=== PATIENT | female | born 1950 | race Caucasian/White ===

== ENCOUNTER → 2017-09-29 08:33 | Outpatient (CLI) | payer MEDICARE, OTHER, SELFPAY ==
[2017-09-29 09:08] LABS: Hematocrit 40.3 % (37-47); Mean Corp Hgb Conc 34.7 g/gl (32-36); Mean Corpuscular Hgb 30.9 pg (27.0-32.0); Mean Platelet Vol. 9.4 fl (6.2-12.0); Platelet Count 271 K/mm3 (150-450); RBC Distribution Width CV 13.6 % (11.6-14.6); RBC Distribution Width SD 44.2 fl (35.1-43.9); Red Blood Count 4.53 M/mm3 (4.2-5.4); Scan Indicated on CBC? Y/N NO
[2017-09-29 09:45] LABS: ALB/GLOB Ratio 1.1 RATIO (0.9-2.4); AST(SGOT) 34 U/L (15-37); Alanine Aminotransfer ALT/SGPT 43 U/L (13-56); Albumin, Serum 4.1 g/dL (3.2-5.0); Alkaline Phosphatase 53 U/L (45-117); Anion Gap 9 (5-15); BUN 21 mg/dL (7-18); BUN/Creat Ratio 20.4 RATIO (10-20); Calcium,Total 9.3 mg/dL (8.5-10.1); Chloride 106 mmol/L (98-107); Cholesterol 195 mg/dL (200); Creatinine, Serum 1.03 mg/dL (0.55-1.02); EST Glomerular Filtration Rate 57 mL/min (>60); Est Glom Filt Rate - Afr Amer 69 mL/min (>60); Globulin 3.8 g/dL (2.2-4.2); Glucose 105 mg/dL (74-106); High Density Lipoprotein 51 mg/dL; Magnesium 2.1 mg/dL (1.6-2.6); Potassium 3.8 mmol/L (3.5-5.1); Protein, Total 7.9 g/dL (6.4-8.2); Sodium Level 139 mmol/L (136-145); Triglycerides 154 mg/dL; Very Low Density Lipoprotein 31 mg/dL (5-40)
[2017-09-29 10:47] LABS: Vitamin D,25 Hydroxy 73.4 ng/mL (29.95-100.01)
== END ==
PROVIDERS: Family Provider Internal Medicine; PCP Internal Medicine; Visit Provider Internal Medicine
DX: I10 Essential (primary) hypertension (principal); E55.9 Vitamin D deficiency, unspecified; E78.2 Mixed hyperlipidemia; E87.6 Hypokalemia; E83.42 Hypomagnesemia; Z79.899 Other long term (current) drug therapy
CPT/HCPCS: 36415; 80053; 80061; 82306; 83735; 85027

== ENCOUNTER → 2017-11-24 17:40 | Outpatient (CLI) | payer MEDICARE, OTHER, SELFPAY ==
--- NOTE | 2017-11-24 17:40 | CT_ITS ---
STUDY: CT CHEST WITH CONTRAST REASON FOR EXAM: Female, 67 years old. Cough, history of breast cancer RADIATION DOSAGE (If Supplied By Facility): CTDIvol = ( 12.37 ) mGy, DLP = ( 536.13 ) mGycm TECHNIQUE: Transaxial imaging was performed following intravenous administration of 100ml ml of Isovue 300 contrast material. Multiplanar coronal and sagittal images were reformatted. Individualized dose optimization techniques were used for this CT. COMPARISON: None. FINDINGS: No noncalcified pulmonary nodules detected. Smoothly marginated micronodules of the posterior pleural surface involving the mid to lower hemithorax without pleural effusion. Average diameter of the micronodules measure up to 5 mm (average diameter). There is a calcified granuloma in the right lower lobe. Normal heart and pericardium. There are calcified lymph nodes in the mediastinum. Normal hilar regions. Normal enhanced pulmonary arteries. Normal aorta arch and descending thoracic aorta. Bovine arch anatomy noted. Normal osseous structures. There are multiple renal cysts of each kidney, incompletely visualized. The gallbladder. 3 surgically absent. The adrenal glands are not focally enlarged. There is a small hiatal hernia. CT/Chest WITH Contrast IMPRESSION: 1. No suspicious pulmonary nodule/mass, adenopathy or pleural effusion. No airspace consolidation. 2. Pleural based micronodules without associated effusions are most typical of postinflammatory sequela, doubtful clinical significance. 3. Bilateral renal cysts, incompletely visualized but previously described on CT abdomen/pelvis report of 01/17/2014. Images not available. Electronically Signed: Daniel Ennis MD at 9:05 EDT , Service support ,
[2017-11-24 17:55] LABS: CREATININE FINGERSTICK 0.8 mg/dL (0.55-1.02); EGFR FINGERSTICK > 60.0000 mL/min (>60)
== END ==
PROVIDERS: Family Provider Internal Medicine; PCP Internal Medicine; Visit Provider Nurse Practitioner Adult Health
DX: J90 Pleural effusion, not elsewhere classified (principal); Z13.89 Encounter for screening for other disorder
CPT/HCPCS: 71260; Q9967

== ENCOUNTER → 2018-03-28 10:22 | Outpatient (CLI) | payer MEDICARE, OTHER, SELFPAY ==
--- NOTE | 2018-03-28 10:27 | BI_ITS ---
MAMMOGRAPHY - BILATERAL SCREENING REASON FOR EXAM: Female, 67 years old. Routine annual screening examination. PERTINENT HISTORY: P/H AGE 53, MOTHER AGE 62, MAT AUNT AGE 70S LT MASTECTOMY WITH RCON TRAMFLAP 2004 CHEMO AND ARIMADEX FOR 5 YRS RT STERO BX 2003 RT MOLE REMOVED 2009 BILAT MOLES/KERATOSIS MARKED TECHNIQUE: Digital bilateral breast reinaldo (3D mammographic acquisition) in the CC and MLO projections. 2-D mediolateral oblique (MLO) and craniocaudad (CC) views of both breasts were obtained. CAD: Full Field Digital Mammography with Computer Added Detection was performed. COMPARISON: Mar 27 2017 10:40am . Mar 28 2016 9:31am FINDINGS: Breast Composition: The breasts are heterogeneously dense, which may obscure small masses. There are no dominant masses or suspicious calcifications. No other significant abnormalities are identified. BI/SCREENING MAMM (CAD), BILAT IMPRESSION: Stable bilateral screening mammogram. Yearly follow-up mammogram recommended. (A) ASSESSMENT CATEGORY: BIRADS Category 2: Benign. A letter regarding these results will be sent to the patient by the facility within 30 days. Approximately 10% of breast cancers are not detected by mammography. A normal mammogram should not delay biopsy of a clinically suspicious abnormality. [id number] Electronically Signed: Bronson Encarnacion MD at 15:31 EDT Tel , Service support ,
--- NOTE | 2018-03-28 10:33 | BD_ITS ---
STUDY: DUAL ENERGY X-RAY ABSORPTIOMETRY / DXA REASON FOR EXAM: Female, 67 years old. Early menopause, postmenopausal screening TECHNIQUE: Bone Mineral Density (BMD) measurements of lumbar spine and bilateral hips were obtained. COMPARISON: 2014 FINDINGS: Lumbar Spine (L1-L4): g/cm2 (0.999) / T-score (-1.4) / Z-score (0.2) Findings are suggestive of osteopenia with a moderate fracture risk. Left Femur Total: g/cm2 (0.841) / T-score (-1.3) / Z-score (-0.1) Left Femoral Neck: g/cm2 (0.792) / T-score (-1.8) / Z-score (-0.3) Right Femur Total: g/cm2 (0.871) / T-score (-1.1) / Z-score (0.1) Right Femoral Neck: g/cm2 (0.790) / T-score (-1.8) / Z-score (-0.3) The T-Scores on the most recent prior examination were: Lumbar Spine (L1-L4): There has been no change of bone density since the previous examination. BD/Dexa Bone Density Study IMPRESSION: The patient is considered osteopenic as outlined below according to World [place] Organization (WHO) criteria with a moderate fracture risk. There has been no change of bone density since the previous examination. Reference Information: The T-score is the number of standard deviations above or below the standard which is normal for young adults at their peak bone mineral density. The World Health Organization (WHO) interprets the T-scores as follows: Above -1 Normal bone density Between -1 and -2.5 Osteopenia Equal to / or below -2.5 Osteoporosis As a practical clinical guideline, osteopenia may be graded as follows: Mild -1 through -1.5 Moderate -1.6 through -2.0 Severe -2.1 through -2.4 The Z-score is the number of standard deviations above or below age-matched controls. A Z-score of less than -1.5 would be considered abnormal. References: 1. NIH Osteoporosis and Related Bone Diseases http://www.osteo.org 2. International Society for Clinical Densitometry http://www.iscd.org 3. National Osteoporosis Foundation http://www.nof.org Electronically Signed: Jose Benitez MD at 16:27 EDT , Service support ,
== END ==
PROVIDERS: Family Provider Internal Medicine; PCP Internal Medicine; Referring Provider Obstetrics & Gynecology; Visit Provider Obstetrics & Gynecology
DX: Z12.31 Encounter for screening mammogram for malignant neoplasm of breast (principal); Z78.0 Asymptomatic menopausal state
CPT/HCPCS: 77063; 77067; 77080

== ENCOUNTER → 2018-04-06 08:38 | Outpatient (CLI) | payer MEDICARE, OTHER, SELFPAY ==
[2018-04-06 09:57] LABS: Hemoglobin A1c 5.9 % (4.2-6.3)
[2018-04-06 10:16] LABS: Anion Gap 7 (5-15); BUN 20 mg/dL (7-18); BUN/Creat Ratio 19.4 RATIO (10-20); Calcium,Total 9.2 mg/dL (8.5-10.1); Chloride 106 mmol/L (98-107); Creatinine, Serum 1.03 mg/dL (0.55-1.02); EST Glomerular Filtration Rate 57 mL/min (>60); Est Glom Filt Rate - Afr Amer 69 mL/min (>60); Glucose 103 mg/dL (74-106); Potassium 3.6 mmol/L (3.5-5.1); Sodium Level 140 mmol/L (136-145)
== END ==
PROVIDERS: Family Provider Internal Medicine; PCP Internal Medicine; Referring Provider Internal Medicine; Visit Provider Internal Medicine
DX: Z79.899 Other long term (current) drug therapy (principal)
CPT/HCPCS: 36415; 80048; 83036

== ENCOUNTER → 2018-05-31 08:23 | Outpatient (CLI) | payer MEDICARE, OTHER, SELFPAY ==
[2018-05-31 08:42] VITALS: BP 151/79; PULSE 76; RESP 18; TEMP 37; O2SAT 93; BMI 33.7
[2018-05-31] MEDS: Zoledronic Acid 5 MG 100 ML 300 MG IV (08:49)
== END ==
PROVIDERS: Family Provider Internal Medicine; PCP Internal Medicine; Referring Provider Internal Medicine; Visit Provider Internal Medicine
DX: M81.0 Age-related osteoporosis without current pathological fracture (principal)
CPT/HCPCS: 96365; J7050; A4216; J3489

== ENCOUNTER → 2018-09-29 08:57 | Outpatient (CLI) | payer MEDICARE, SELFPAY ==
[2018-05-31 08:42] VITALS: BMI 33.7
[2018-09-29 10:16] LABS: Hematocrit 43.4 % (37-47); Hemoglobin 14.3 g/dl (12.0-15.0); Mean Corp Hgb Conc 32.9 g/gl (32-36); Mean Corpuscular Hgb 30.3 pg (27.0-32.0); Mean Corpuscular Volume 91.9 fL (81-99); Mean Platelet Vol. 9.6 fl (6.2-12.0); Platelet Count 256 K/mm3 (150-450); RBC Distribution Width CV 13.8 % (11.6-14.6); RBC Distribution Width SD 46.4 fl (35.1-43.9); Red Blood Count 4.72 M/mm3 (4.2-5.4); Scan Indicated on CBC? Y/N NO; White Blood Count 5.6 K/mm3 (4.4-11.0)
[2018-09-29 10:41] LABS: ALB/GLOB Ratio 1.1 RATIO (0.9-2.4); AST(SGOT) 20 U/L (15-37); Alanine Aminotransfer ALT/SGPT 29 U/L (13-56); Alkaline Phosphatase 46 U/L (45-117); Anion Gap 7 (5-15); BUN 21 mg/dL (7-18); Calcium,Total 9.2 mg/dL (8.5-10.1); Chloride 108 mmol/L (98-107); Cholesterol 214 mg/dL (200); Creatinine, Serum 1.05 mg/dL (0.55-1.02); EST Glomerular Filtration Rate 56 mL/min (>60); Est Glom Filt Rate - Afr Amer 67 mL/min (>60); Globulin 3.7 g/dL (2.2-4.2); Glucose 108 mg/dL (74-106); High Density Lipoprotein 55 mg/dL; Magnesium 1.8 mg/dL (1.6-2.6); Potassium 3.7 mmol/L (3.5-5.1); Protein, Total 7.7 g/dL (6.4-8.2); Sodium Level 141 mmol/L (136-145); Triglycerides 154 mg/dL; Very Low Density Lipoprotein 31 mg/dL (5-40)
[2018-09-29 10:47] LABS: Hemoglobin A1c 6.2 % (4.2-6.3)
[2018-09-30 11:14] LABS: Vitamin D,25 Hydroxy 61.4 ng/mL (29.95-100.01)
== END ==
PROVIDERS: Family Provider Internal Medicine; PCP Internal Medicine; Referring Provider Internal Medicine; Visit Provider Internal Medicine
DX: E78.2 Mixed hyperlipidemia (principal); I10 Essential (primary) hypertension; E87.6 Hypokalemia; E83.42 Hypomagnesemia; R73.09 Other abnormal glucose; E55.9 Vitamin D deficiency, unspecified; Z79.899 Other long term (current) drug therapy
CPT/HCPCS: 36415; 80053; 80061; 82306; 83036; 83735; 85027

== ENCOUNTER → 2019-03-28 | Outpatient (CLI) | payer MEDICARE, OTHER, SELFPAY ==
[2018-05-31 08:42] VITALS: BMI 33.7
[2019-03-28 09:49] LABS: Absolute Lymphocyte Count 1.88 X10^3/uL (0.83-4.51); Absolute Neutrophil Count 3.6 X10^3/uL (2.0-7.7); Basophil# 0.03 X10^3/uL; Basophil% 0.5 % (0-1); Eosinophil# 0.26 X10^3/uL; Eosinophils% 4.2 % (0-5); Hematocrit 44.6 % (37-47); Hemoglobin 14.6 g/dL (12.0-15.0); Lymphocyte # 1.88 X10^3/ul (4.0); Lymphocyte % 30.5 % (19-41); Mean Corp Hgb Conc 32.7 g/dL (32-36); Mean Corpuscular Hgb 29.7 pg (27.0-32.0); Mean Corpuscular Volume 90.7 fL (81-99); Mean Platelet Vol. 9.5 fl (6.2-12.0); Monocyte# 0.43 X10^3/uL; NRBC Flagged by Analyzer 0 % (0-5); Neutrophil # 3.55 X10^3/uL (2.7-7.7); Neutrophil % 57.6 % (47-70); Platelet Count 291 K/mm3 (150-450); RBC Distribution Width CV 13.1 % (11.6-14.6); RBC Distribution Width SD 42.9 fl (35.1-43.9); Red Blood Count 4.92 M/mm3 (4.2-5.4); White Blood Count 6.2 K/mm3 (4.4-11.0)
[2019-03-28 10:32] LABS: Vitamin D,25 Hydroxy 54.1 ng/mL (29.95-100.01)
[2019-03-28 10:36] LABS: AST(SGOT) 34 U/L (15-37); Alanine Aminotransfer ALT/SGPT 47 U/L (13-56); Alkaline Phosphatase 62 U/L (45-117); Anion Gap 8 (5-15); BUN 27 mg/dL (7-18); BUN/Creat Ratio 24.1 RATIO (10-20); Calcium,Total 9.7 mg/dL (8.5-10.1); Chloride 111 mmol/L (98-107); Cholesterol 214 mg/dL (200); Creatinine, Serum 1.12 mg/dL (0.55-1.02); EST Glomerular Filtration Rate 52 mL/min (>60); Est Glom Filt Rate - Afr Amer 63 mL/min (>60); Globulin 4.2 g/dL (2.2-4.2); Glucose 122 mg/dL (74-106); High Density Lipoprotein 52 mg/dL; Potassium 3.9 mmol/L (3.5-5.1); Protein, Total 8.2 g/dL (6.4-8.2); Sodium Level 141 mmol/L (136-145); Triglycerides 179 mg/dL; Very Low Density Lipoprotein 36 mg/dL (5-40)
== END | disposition home or self-care (01) ==
PROVIDERS: Family Provider Internal Medicine; PCP Internal Medicine; Referring Provider Internal Medicine; Visit Provider Internal Medicine
DX: E55.9 Vitamin D deficiency, unspecified (principal); E83.42 Hypomagnesemia; E78.2 Mixed hyperlipidemia; R73.09 Other abnormal glucose; I10 Essential (primary) hypertension; E87.6 Hypokalemia; Z79.899 Other long term (current) drug therapy
CPT/HCPCS: 36415; 80053; 80061; 82306; 83036; 83735; 85025

== ENCOUNTER → 2019-03-29 | Outpatient (CLI) | payer MEDICARE, OTHER, SELFPAY ==
[2018-05-31 08:42] VITALS: BMI 33.7
--- NOTE | 2019-03-29 08:23 | BI_ITS ---
MAMMOGRAPHY - BILATERAL SCREENING REASON FOR EXAM: Female, 68 years old. Routine annual screening examination. PERTINENT HISTORY: Personal history of breast cancer. History of prior left mastectomy with TRAM flap reconstruction. Mother with breast cancer. Twin sister with breast cancer. TECHNIQUE: Digital bilateral breast cosme (3D mammographic acquisition) in the CC and MLO projections. 2-D mediolateral oblique (MLO) and craniocaudad (CC) views of both breasts were obtained. CAD: Full Field Digital Mammography with Computer Added Detection was performed. COMPARISON: Comparison is made with prior examination dated March 28, 2018. FINDINGS: Breast Composition: The right breast is heterogeneously dense, which may obscure small masses. The left breast is fatty due to the [place] flap reconstruction. Surgical clips are seen along the left chest wall. Stable appearance of the fat-containing right axillary lymph nodes. There are no dominant masses or suspicious calcifications. No other significant abnormalities are identified. There has been no significant change since the prior study. BI/SCREEN MAMM (CAD) W/COSME BILAT IMPRESSION: Stable bilateral screening mammogram. Yearly follow-up mammogram recommended. (A) ASSESSMENT CATEGORY: BIRADS Category 2: Benign. A letter regarding these results will be sent to the patient by the facility within 30 days. Approximately 10% of breast cancers are not detected by mammography. A normal mammogram should not delay biopsy of a clinically suspicious abnormality. [id number] Electronically Signed: Kevin Guajardo, at 10:34 EDT , Service support ,
== END | disposition home or self-care (01) ==
LOC: OPBI 08:21
PROVIDERS: Family Provider Internal Medicine; PCP Internal Medicine; Referring Provider Nurse Practitioner Women's Health; Visit Provider Nurse Practitioner Women's Health
DX: Z12.31 Encounter for screening mammogram for malignant neoplasm of breast (principal)
CPT/HCPCS: 77063; 77067

== ENCOUNTER → 2019-05-31 09:55 | Outpatient (CLI) | payer MEDICARE, OTHER, SELFPAY ==
[2019-04-23 10:32] VITALS: BMI 33.7
[2019-05-31 10:08] VITALS: BP 146/77; PULSE 62; RESP 16; TEMP 36.1; O2SAT 96; BMI 36.6
[2019-05-31] MEDS: Zoledronic Acid 5 MG 100 ML 300 MG IV (10:10)
[2019-05-31 10:40] VITALS: BP 133/76; PULSE 54; RESP 16
== END ==
PROVIDERS: Family Provider Internal Medicine; PCP Internal Medicine; Referring Provider Internal Medicine; Visit Provider Internal Medicine
DX: M81.0 Age-related osteoporosis without current pathological fracture (principal)
CPT/HCPCS: 96365; A4216; J3489

== ENCOUNTER → 2020-02-06 08:50 | Outpatient (CLI) | payer MEDICARE, OTHER, SELFPAY ==
[2019-05-31 10:08] VITALS: BMI 36.6
--- NOTE | 2020-02-06 08:51 | BI_ITS ---
MAMMOGRAPHY - UNILATERAL DIAGNOSTIC: RIGHT BREAST REASON FOR EXAM: Female, 69 years old. Right breast pain. PERTINENT HISTORY: Personal history of breast cancer. Prior left mastectomy and TRAM flap reconstruction. TECHNIQUE: Digital unilateral breast reinaldo (3D mammographic acquisition) in the CC and MLO projections. 2-D mediolateral oblique (MLO) and craniocaudad (CC) views of both breasts were obtained. CAD: Full Field Digital Mammography with Computer Added Detection was performed. COMPARISON: Comparison is made with prior study dated 03/29/2019 and 03/28/2018. FINDINGS: Breast Composition: The breasts are heterogeneously dense, which may obscure small masses. Focal area of architectural distortion is seen in the deep slightly upper medial aspect of the right breast. Correlation with ultrasound is recommended. No other significant abnormalities are identified. BI/DIAG MAMM W/CAD, UNILAT IMPRESSION: Focal area of architectural distortion and spiculated density in the deep slightly upper medial portion of the right breast. Correlation with ultrasound is recommended. ASSESSMENT CATEGORY: BIRADS Category 0: Incomplete. Need additional imaging evaluation. A letter regarding these results will be sent to the patient by the facility within 30 days. Approximately 10% of breast cancers are not detected by mammography. A normal mammogram should not delay biopsy of a clinically suspicious abnormality. Electronically Signed: Kevin Guajardo, at 9:51 EDT , Service support ,
--- NOTE | 2020-02-06 08:51 | US_ITS ---
STUDY: ULTRASOUND BREAST - RIGHT REASON FOR EXAM: Female, 69 years old. Abnormal screening mammogram. Right breast. TECHNIQUE: Axial and longitudinal images of the RIGHT breast were performed with a high resolution ultrasound transducer. # OF IMAGES: 70 COMPARISON: Comparison is made with prior mammogram done earlier in the day. FINDINGS: RIGHT Breast: There is a 4 mm by 5 mm x 4 mm cyst at 12 o''clock position of the breast at 2 cm from the nipple. The questionable architectural distortion on the mammogram is not seen on the ultrasound. Additional mammographic views will be obtained. US/Breast Limited Unilateral IMPRESSION: Small cyst at the 12 o''clock position breast 2 cm from nipple. Additional mammographic views will be obtained. ASSESSMENT CATEGORY: BIRADS Category 0: Incomplete. Need additional imaging evaluation. A letter regarding these results will be sent to the patient by the facility within 30 days. Electronically Signed: Kevin Guajardo, at 10:38 EDT , Service support ,
== END ==
PROVIDERS: PCP Internal Medicine; Referring Provider Nurse Practitioner Women's Health; Visit Provider Nurse Practitioner Women's Health
DX: N64.4 Mastodynia (principal); C50.912 Malignant neoplasm of unspecified site of left female breast
CPT/HCPCS: 76642; 77061; 77065; G0279

== ENCOUNTER → 2020-03-17 07:14 | Outpatient (CLI) | payer MEDICARE, OTHER, SELFPAY ==
[2019-05-31 10:08] VITALS: BMI 36.6
[2020-03-17 08:13] LABS: Hematocrit 43.1 % (37-47); Hemoglobin 14.2 g/dL (12.0-15.0); Mean Corp Hgb Conc 32.9 g/dL (32-36); Mean Corpuscular Hgb 29.9 pg (27.0-32.0); Mean Corpuscular Volume 90.7 fL (81-99); Mean Platelet Vol. 9.9 fl (6.2-12.0); Platelet Count 291 K/mm3 (150-450); RBC Distribution Width CV 13.2 % (11.6-14.6); RBC Distribution Width SD 43.3 fl (35.1-43.9); Red Blood Count 4.75 M/mm3 (4.2-5.4); White Blood Count 6.7 K/mm3 (4.4-11.0)
[2020-03-17 08:36] LABS: AST(SGOT) 25 U/L (15-37); Alanine Aminotransfer ALT/SGPT 41 U/L (13-56); Albumin, Serum 3.9 g/dL (3.2-5.0); Alkaline Phosphatase 65 U/L (45-117); Anion Gap 8 (5-15); BUN 30 mg/dL (7-18); BUN/Creat Ratio 24.4 RATIO (10-20); Calcium,Total 9.7 mg/dL (8.5-10.1); Chloride 105 mmol/L (98-107); Cholesterol 208 mg/dL (200); Creatinine, Serum 1.23 mg/dL (0.55-1.02); EST Glomerular Filtration Rate 46 mL/min (>60); Est Glom Filt Rate - Afr Amer 56 mL/min (>60); Glucose 119 mg/dL (74-106); High Density Lipoprotein 51 mg/dL; Magnesium 1.9 mg/dL (1.6-2.6); Potassium 3.5 mmol/L (3.5-5.1); Protein, Total 7.9 g/dL (6.4-8.2); Sodium Level 138 mmol/L (136-145); Triglycerides 193 mg/dL; Very Low Density Lipoprotein 39 mg/dL (5-40)
[2020-03-17 09:11] LABS: Hepatitis C Antibody Non-Reactive (Nonreactive); Vitamin D,25 Hydroxy 56.9 ng/mL
== END ==
PROVIDERS: PCP Internal Medicine; Referring Provider Internal Medicine; Visit Provider Internal Medicine
DX: Z01.89 Encounter for other specified special examinations (principal); E55.9 Vitamin D deficiency, unspecified; E78.2 Mixed hyperlipidemia; I10 Essential (primary) hypertension; R73.09 Other abnormal glucose
CPT/HCPCS: 36415; 80053; 80061; 82306; 83036; 83735; 85027; 86803

== ENCOUNTER → 2020-03-31 08:39 | Outpatient (CLI) | payer MEDICARE, OTHER, SELFPAY ==
[2019-05-31 10:08] VITALS: BMI 36.6
--- NOTE | 2020-03-31 08:40 | BI_ITS ---
MAMMOGRAPHY - UNILATERAL SCREENING: LEFT BREAST REASON FOR EXAM: Female, 69 years old. Routine annual screening examination (unilateral). PERTINENT HISTORY: EFT TRAMFLAP SCREENING TODAY RT DIAG + U/S 02/06/20=BENIGN PERSONAL H @ AGE 53 - FAM HX OF MOTHER @ AGE 62, MAT AUNT @ AGE 70''S, TWIN SISTER @ AGE 65, SISTER @ AGE 69 lt mast with chemo @ reconstruction 2003 rt stereo bx 2003 with arimadex x 5 yrs rt mole removed after 2010 mamm. TECHNIQUE: Digital unilateral breast reinaldo (3D mammographic acquisition) in the CC and MLO projections. 2-D mediolateral oblique (MLO) and craniocaudad (CC) views of both breasts were obtained. CAD: Full Field Digital Mammography with Computer Added Detection was performed. COMPARISON: 03/29/2019 FINDINGS: Breast Composition: The breasts are almost entirely fatty. There are no dominant masses or suspicious calcifications. Changes of mastectomy with TRAM flap reconstruction on the left. No other significant abnormalities are identified. BI/UNILAT LT SCRN W/CAD IMPRESSION: Stable unilateral screening mammogram. Yearly follow-up mammogram recommended. (A) ASSESSMENT CATEGORY: BIRADS Category 2: Benign. A letter regarding these results will be sent to the patient by the facility within 30 days. Approximately 10% of breast cancers are not detected by mammography. A normal mammogram should not delay biopsy of a clinically suspicious abnormality. [id number] Electronically Signed: Bronson Encarnacion, at 13:33 EDT Tel , Service support ,
--- NOTE | 2020-03-31 08:59 | BD_ITS ---
STUDY: DUAL ENERGY X-RAY ABSORPTIOMETRY / DXA REASON FOR EXAM: Female, 69 years old. 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 COMPARISON: Comparison is made with prior examination dated 03/28/2018. FINDINGS: Lumbar Spine (L1-L4): g/cm2 (1.035) / T-score (-1.1) / Z-score (0.5) Findings are suggestive of osteopenia with a low fracture risk. Left Femur Total: g/cm2 (0.826) / T-score (-1.4) / Z-score (-0.1) Left Femoral Neck: g/cm2 (0.775) / T-score (-1.9) / Z-score (-0.3) Right Femur Total: g/cm2 (0.864) / T-score (-1.1) / Z-score (0.2) Right Femoral Neck: g/cm2 (0.796) / T-score (-1.7) / Z-score (-0.2) The T-Scores on the most recent prior examination were: Lumbar Spine (L1-L4): There has been improvement of bone density since the previous examination. Left Femur Total: which represents a worsening of 1.8%. Right Femur Total: which represents a worsening of 0.8%. BD/Dexa Bone Density Study IMPRESSION: The patient is considered osteopenic as outlined below according to World [place] Organization (WHO) criteria with a moderate fracture risk. There has been worsening of bone density since the previous examination. Reference Information: The T-score is the number of standard deviations above or below the standard which is normal for young adults at their peak bone mineral density. The World Health Organization (WHO) interprets the T-scores as follows: Above -1 Normal bone density Between -1 and -2.5 Osteopenia Equal to / or below -2.5 Osteoporosis As a practical clinical guideline, osteopenia may be graded as follows: Mild -1 through -1.5 Moderate -1.6 through -2.0 Severe -2.1 through -2.4 The Z-score is the number of standard deviations above or below age-matched controls. A Z-score of less than -1.5 would be considered abnormal. References: 1. NIH Osteoporosis and Related Bone Diseases www osteo.org 2. International Society for Clinical Densitometry www iscd.org 3. National Osteoporosis Foundation www nof.org Electronically Signed: Kevin Guajardo, at 15:46 EDT , Service support ,
== END ==
PROVIDERS: PCP Internal Medicine; Referring Provider Obstetrics & Gynecology; Visit Provider Obstetrics & Gynecology
DX: Z12.31 Encounter for screening mammogram for malignant neoplasm of breast (principal); Z13.820 Encounter for screening for osteoporosis; M81.0 Age-related osteoporosis without current pathological fracture; Z78.0 Asymptomatic menopausal state
CPT/HCPCS: 77061; 77063; 77067; 77080; G0279

== ENCOUNTER → 2020-05-04 16:24 | Outpatient (CLI) | payer MEDICARE, OTHER, SELFPAY ==
[2020-05-04 13:37] VITALS: BMI 36.8
[2020-05-11 04:35] LABS: HPV APTIMA, High Risk Negative (Negative)
== END ==
PROVIDERS: PCP Internal Medicine; Referring Provider Obstetrics & Gynecology; Visit Provider Obstetrics & Gynecology
DX: Z91.89 Other specified personal risk factors, not elsewhere classified (principal)
CPT/HCPCS: 87624; 88175; G0145

== ENCOUNTER → 2020-06-04 12:59 | Outpatient (CLI) | payer MEDICARE, OTHER, SELFPAY ==
[2019-05-31 10:08] VITALS: BMI 36.6
[2020-05-04 13:37] VITALS: BMI 36.8
[2020-06-04 13:27] VITALS: BP 172/85; PULSE 67; RESP 16; TEMP 36.8; O2SAT 96; BMI 37.4
[2020-06-04] MEDS: Zoledronic Acid 5 MG 100 ML 300 MG IV (13:38)
[2020-06-04 14:02] VITALS: BP 156/77; PULSE 72; RESP 18; TEMP 36.5; O2SAT 97
== END ==
PROVIDERS: PCP Internal Medicine; Referring Provider Internal Medicine; Visit Provider Internal Medicine
DX: M81.0 Age-related osteoporosis without current pathological fracture (principal)
CPT/HCPCS: 96365; A4216; J3489

== ENCOUNTER → 2020-10-06 08:35 | Outpatient (CLI) | payer MEDICARE, OTHER, SELFPAY ==
[2020-06-04 13:27] VITALS: BMI 37.4
[2020-10-06 10:16] LABS: Hematocrit 42.8 % (37-47); Hemoglobin 13.7 g/dL (12.0-15.0); Mean Corpuscular Hgb 29.5 pg (27.0-32.0); Mean Corpuscular Volume 92.2 fL (81-99); Platelet Count 282 K/mm3 (150-450); RBC Distribution Width CV 13.7 % (11.6-14.6); RBC Distribution Width SD 46.7 fl (35.1-43.9); Red Blood Count 4.64 M/mm3 (4.2-5.4); White Blood Count 6.3 K/mm3 (4.4-11.0)
[2020-10-06 10:42] LABS: Vitamin D,25 Hydroxy 45.9 ng/mL
[2020-10-06 10:43] LABS: AST(SGOT) 25 U/L (15-37); Alanine Aminotransfer ALT/SGPT 41 U/L (13-56); Albumin, Serum 3.8 g/dL (3.2-5.0); Alkaline Phosphatase 62 U/L (45-117); Anion Gap 8 (5-15); BUN 28 mg/dL (7-18); Calcium,Total 9.7 mg/dL (8.5-10.1); Chloride 103 mmol/L (98-107); Cholesterol 188 mg/dL (200); Creatinine, Serum 1.22 mg/dL (0.55-1.02); EST Glomerular Filtration Rate 47 mL/min (>60); Est Glom Filt Rate - Afr Amer 56 mL/min (>60); Globulin 3.9 g/dL (2.2-4.2); Glucose 114 mg/dL (74-106); High Density Lipoprotein 52 mg/dL; Magnesium 1.9 mg/dL (1.6-2.6); Potassium 3.4 mmol/L (3.5-5.1); Protein, Total 7.7 g/dL (6.4-8.2); Sodium Level 138 mmol/L (136-145); Triglycerides 192 mg/dL; Very Low Density Lipoprotein 38 mg/dL (5-40)
== END ==
PROVIDERS: PCP Internal Medicine; Referring Provider Internal Medicine; Visit Provider Internal Medicine
DX: I10 Essential (primary) hypertension (principal); E87.6 Hypokalemia; R73.09 Other abnormal glucose; E78.2 Mixed hyperlipidemia; E55.9 Vitamin D deficiency, unspecified
CPT/HCPCS: 36415; 80053; 80061; 82306; 83036; 83735; 85027

== ENCOUNTER → 2021-04-01 07:40 | Outpatient (CLI) | payer MEDICARE, OTHER, SELFPAY ==
[2020-06-04 13:27] VITALS: BMI 37.4
--- NOTE | 2021-04-01 07:52 | BI_ITS ---
MAMMOGRAPHY - BILATERAL SCREENING 3-D TOMOSYNTHESIS REASON FOR EXAM: Female, 70 years old. breast cancer screening PERTINENT HISTORY: No significant family history. TECHNIQUE: 2-D mammograms and 3-D Tomosynthesis of the breast (s) were performed. CAD was performed. COMPARISON: 03/31/2020 FINDINGS: The breast composition is heterogeneously dense that can obscure small breast masses. Scattered benign calcifications are seen. No dense spiculated masses or suspicious microcalcifications are identified. No architectural distortion is identified. There is no skin thickening or retraction. There has been no significant change since the prior study. Postsurgical changes of the left breast. BI/SCRN MAMM (CAD)W/COSME BILAT IMPRESSION: No mammographic signs of malignancy. Routine yearly mammograms recommended. ASSESSMENT CATEGORY: BIRADS Category 2: Benign. A letter regarding these results will be sent to the patient by the facility within 30 days. FOLLOW UP RECOMMENDATION: Yearly follow up mammogram recommended. (A) Approximately 10% of breast cancers are not detected by mammography. A normal mammogram should not delay biopsy of a clinically suspicious abnormality. Electronically Signed: Preston Bhat MD at 11:25 EDT Tel , Service support ,
== END ==
PROVIDERS: PCP Internal Medicine; Referring Provider Obstetrics & Gynecology; Visit Provider Obstetrics & Gynecology
DX: Z12.31 Encounter for screening mammogram for malignant neoplasm of breast (principal)
CPT/HCPCS: 77063; 77067

== ENCOUNTER → 2021-04-22 08:18 | Outpatient (CLI) | payer MEDICARE, OTHER, SELFPAY ==
[2021-04-22 09:16] LABS: Hematocrit 40.9 % (37-47); Hemoglobin 13.5 g/dL (12.0-15.0); Mean Corpuscular Hgb 29.9 pg (27.0-32.0); Mean Corpuscular Volume 90.5 fL (81-99); Mean Platelet Vol. 9.5 fl (6.2-12.0); Platelet Count 298 K/mm3 (150-450); RBC Distribution Width CV 13.4 % (11.6-14.6); RBC Distribution Width SD 45.1 fl (35.1-43.9); Red Blood Count 4.52 M/mm3 (4.2-5.4); White Blood Count 5.9 K/mm3 (4.4-11.0)
[2021-04-22 09:31] LABS: Hemoglobin A1c 5.9 % (3.8-5.6)
[2021-04-22 09:47] LABS: Vitamin D,25 Hydroxy 42.9 ng/mL
[2021-04-22 09:57] LABS: ALB/GLOB Ratio 0.9 RATIO (0.9-2.4); AST(SGOT) 23 U/L (15-37); Alanine Aminotransfer ALT/SGPT 42 U/L (13-56); Albumin, Serum 3.5 g/dL (3.2-5.0); Alkaline Phosphatase 58 U/L (45-117); Anion Gap 6 (5-15); BUN 20 mg/dL (7-18); BUN/Creat Ratio 16.8 RATIO (10-20); Calcium,Total 9.4 mg/dL (8.5-10.1); Chloride 111 mmol/L (98-107); Cholesterol 197 mg/dL (200); Creatinine, Serum 1.19 mg/dL (0.55-1.02); EST Glomerular Filtration Rate 48 mL/min (>60); Est Glom Filt Rate - Afr Amer 58 mL/min (>60); Globulin 4.1 g/dL (2.2-4.2); Glucose 131 mg/dL (74-106); High Density Lipoprotein 53 mg/dL; Magnesium 1.9 mg/dL (1.6-2.6); Potassium 3.9 mmol/L (3.5-5.1); Protein, Total 7.6 g/dL (6.4-8.2); Sodium Level 139 mmol/L (136-145); Triglycerides 179 mg/dL; Very Low Density Lipoprotein 36 mg/dL (5-40)
== END ==
PROVIDERS: PCP Internal Medicine; Referring Provider Internal Medicine; Visit Provider Internal Medicine
DX: R73.09 Other abnormal glucose (principal); E78.2 Mixed hyperlipidemia; I10 Essential (primary) hypertension; E55.9 Vitamin D deficiency, unspecified; Z79.899 Other long term (current) drug therapy
CPT/HCPCS: 36415; 80053; 80061; 82306; 83036; 83735; 85027

== ENCOUNTER → 2021-05-05 12:16 | Outpatient (CLI) | payer MEDICARE, OTHER, SELFPAY ==
[2021-05-05 13:31] LABS: NATERA MAILED SPECIMEN
== END ==
PROVIDERS: PCP Internal Medicine; Referring Provider Obstetrics & Gynecology; Visit Provider Obstetrics & Gynecology
DX: Z85.3 Personal history of malignant neoplasm of breast (principal)
CPT/HCPCS: 36415

== ENCOUNTER → 2021-06-04 10:20 | Outpatient (CLI) | payer MEDICARE, OTHER, SELFPAY ==
[2021-06-04 10:34] VITALS: BP 188/82; PULSE 66; RESP 16; TEMP 36.6; O2SAT 95
[2021-06-04] MEDS: Zoledronic Acid 5 MG 100 ML 300 MG IV (10:55)
[2021-06-04 11:21] VITALS: BP 176/79; PULSE 62; RESP 16; O2SAT 96
== END ==
PROVIDERS: PCP Internal Medicine; Referring Provider Internal Medicine; Visit Provider Internal Medicine
DX: M81.0 Age-related osteoporosis without current pathological fracture (principal)
CPT/HCPCS: 96365; A4216; J3489

== ENCOUNTER 2021-10-09 09:21 | Outpatient (CLI) | payer MEDICARE, OTHER, SELFPAY ==
[2021-10-09 10:27] LABS: Anion Gap 6 (5-15); BUN 13 mg/dL (7-18); BUN/Creat Ratio 11.3 RATIO (10-20); Calcium,Total 8.9 mg/dL (8.5-10.1); Chloride 108 mmol/L (98-107); Creatinine, Serum 1.15 mg/dL (0.55-1.02); EST Glomerular Filtration Rate 50 mL/min (>60); Est Glom Filt Rate - Afr Amer 60 mL/min (>60); Glucose 135 mg/dL (74-106); Potassium 3.7 mmol/L (3.5-5.1); Sodium Level 138 mmol/L (136-145)
[2021-10-09 10:37] LABS: Hemoglobin A1c 6.2 % (3.8-5.6)
== END 2021-10-09 23:59 | disposition home or self-care (01) ==
LOC: LAB 09:24
PROVIDERS: PCP Internal Medicine; Referring Provider Internal Medicine; Visit Provider Internal Medicine
DX: I10 Essential (primary) hypertension (principal); R73.09 Other abnormal glucose
CPT/HCPCS: 36415; 80048; 83036

== ENCOUNTER → 2022-04-02 | Outpatient (CLI) | payer MEDICARE, OTHER, SELFPAY ==
[2022-04-02 09:52] LABS: Hematocrit 41.6 % (37-47); Mean Corp Hgb Conc 33.7 g/dL (32-36); Mean Corpuscular Hgb 30.8 pg (27.0-32.0); Mean Corpuscular Volume 91.4 fL (81-99); Mean Platelet Vol. 9.4 fl (6.2-12.0); Platelet Count 307 K/mm3 (150-450); RBC Distribution Width CV 13.2 % (11.6-14.6); RBC Distribution Width SD 44.3 fl (35.1-43.9); Red Blood Count 4.55 M/mm3 (4.2-5.4); White Blood Count 7.1 K/mm3 (4.4-11.0)
[2022-04-02 10:12] LABS: Hemoglobin A1c 6.2 % (3.8-5.6)
[2022-04-02 10:22] LABS: ALB/GLOB Ratio 0.8 RATIO (0.9-2.4); AST(SGOT) 24 U/L (15-37); Alanine Aminotransfer ALT/SGPT 45 U/L (13-56); Albumin, Serum 3.5 g/dL (3.2-5.0); Alkaline Phosphatase 65 U/L (45-117); Anion Gap 8 (5-15); BUN 25 mg/dL (7-18); BUN/Creat Ratio 19.4 RATIO (10-20); Calcium,Total 9.8 mg/dL (8.5-10.1); Chloride 110 mmol/L (98-107); Cholesterol 173 mg/dL (200); Creatinine, Serum 1.29 mg/dL (0.55-1.02); EST Glomerular Filtration Rate 44 mL/min (>60); Est Glom Filt Rate - Afr Amer 53 mL/min (>60); Globulin 4.2 g/dL (2.2-4.2); Glucose 134 mg/dL (74-106); High Density Lipoprotein 41 mg/dL; Potassium 3.9 mmol/L (3.5-5.1); Protein, Total 7.7 g/dL (6.4-8.2); Sodium Level 142 mmol/L (136-145); Triglycerides 231 mg/dL; Very Low Density Lipoprotein 46 mg/dL (5-40)
[2022-04-04 08:17] LABS: Vitamin D,25 Hydroxy 52.9 ng/mL
== END | disposition home or self-care (01) ==
LOC: LAB 09:18
PROVIDERS: PCP Internal Medicine; Referring Provider Internal Medicine; Visit Provider Internal Medicine
DX: R73.09 Other abnormal glucose (principal); E55.9 Vitamin D deficiency, unspecified; E78.2 Mixed hyperlipidemia; Z79.899 Other long term (current) drug therapy
CPT/HCPCS: 36415; 80053; 80061; 82306; 83036; 83735; 85027

== ENCOUNTER → 2022-04-05 | Outpatient (CLI) | payer MEDICARE, OTHER, SELFPAY ==
--- NOTE | 2022-04-05 10:24 | BI_ITS ---
MAMMOGRAPHY - BILATERAL SCREENING REASON FOR EXAM: Female, 71 years old. Routine annual screening examination. PERTINENT HISTORY: Personal history of breast cancer. Prior right mastectomy with TRAM flap. Sister with breast cancer. Mother with breast cancer. Aunt with breast cancer. TECHNIQUE: Digital bilateral breast cosme (3D mammographic acquisition) in the CC and MLO projections. 2-D mediolateral oblique (MLO) and craniocaudad (CC) views of both breasts were obtained. CAD: Full Field Digital Mammography with Computer Added Detection was performed. COMPARISON: Comparison is made with prior examination 04/01/2021 and 03/31/2020. FINDINGS: Breast Composition: The right breast is heterogeneously dense, which may obscure small masses. The left breast is fatty and compared with prior reconstruction surgery. Surgical clips are seen in the left axillary region. Stable appearance of the bilateral axillary lymph nodes. There are no dominant masses or suspicious calcifications. No other significant abnormalities are identified. There has been no significant change since the prior study. BI/SCRN MAMM (CAD)W/COSME BILAT IMPRESSION: Stable bilateral screening mammogram. Yearly follow-up mammogram recommended. (A) ASSESSMENT CATEGORY: BIRADS Category 2: Benign. A letter regarding these results will be sent to the patient by the facility within 30 days. Approximately 10% of breast cancers are not detected by mammography. A normal mammogram should not delay biopsy of a clinically suspicious abnormality. [id number] Electronically Signed: Kevin Guajardo MD at 12:31 EDT ,
--- NOTE | 2022-04-05 10:28 | BD_ITS ---
STUDY: DUAL ENERGY X-RAY ABSORPTIOMETRY / DXA REASON FOR EXAM: Female, 71 years old. Bone density screening TECHNIQUE: Bone Mineral Density (BMD) measurements of lumbar spine and bilateral hips were obtained. COMPARISON: Comparison is made with prior study 03/31/2020. FINDINGS: Lumbar Spine (L1-L4): g/cm2 (0.813) / T-score (-1.5) / Z-score (0.4) Findings are suggestive of osteopenia with a low fracture risk. Left Femur Total: g/cm2 (0.838) / T-score (-0.9) / Z-score (0.6) Left Femoral Neck: g/cm2 (0.668) / T-score (-1.6) / Z-score (0.1) Right Femur Total: g/cm2 (0.848) / T-score (-0.8) / Z-score (0.7) Right Femoral Neck: g/cm2 (0.620) / T-score (-2.1) / Z-score (-0.3) The T-Scores on the most recent prior examination were: Lumbar Spine (L1-L4): There has been worsening of bone density since the previous examination. Left Femur Total: which represents an improvement of 9.6%. Right Femur Total: which represents an improvement of 5.8%. BD/Dexa Bone Density Study IMPRESSION: The patient is considered osteopenic as outlined below according to World [place] Organization (WHO) criteria with a moderate fracture risk. There has been improvement of bone density since the previous examination. Reference Information: The T-score is the number of standard deviations above or below the standard which is normal for young adults at their peak bone mineral density. The World Health Organization (WHO) interprets the T-scores as follows: Above -1 Normal bone density Between -1 and -2.5 Osteopenia Equal to / or below -2.5 Osteoporosis As a practical clinical guideline, osteopenia may be graded as follows: Mild -1 through -1.5 Moderate -1.6 through -2.0 Severe -2.1 through -2.4 The Z-score is the number of standard deviations above or below age-matched controls. A Z-score of less than -1.5 would be considered abnormal. References: 1. NIH Osteoporosis and Related Bone Diseases www osteo.org 2. International Society for Clinical Densitometry www iscd.org 3. National Osteoporosis Foundation www nof.org Electronically Signed: Kevin Guajardo MD at 10:25 EDT ,
== END | disposition home or self-care (01) ==
PROVIDERS: PCP Internal Medicine; Visit Provider Nurse Practitioner Women's Health
DX: Z12.31 Encounter for screening mammogram for malignant neoplasm of breast (principal); Z90.11 Acquired absence of right breast and nipple; Z13.820 Encounter for screening for osteoporosis; Z80.3 Family history of malignant neoplasm of breast; Z78.0 Asymptomatic menopausal state
CPT/HCPCS: 77063; 77067; 77080

== ENCOUNTER → 2022-06-06 | Outpatient (CLI) | payer MEDICARE, OTHER, SELFPAY ==
[2022-06-06 13:45] VITALS: BP 186/87; PULSE 60; RESP 16; TEMP 37.2; O2SAT 96; BMI 39.1
[2022-06-06] MEDS: Zoledronic Acid 5 MG 100 ML 300 MG IV (14:14)
[2022-06-06 14:51] VITALS: BP 169/82; PULSE 69; RESP 16; TEMP 36.6; O2SAT 97
== END | disposition home or self-care (01) ==
LOC: MEDOUTP 13:21
PROVIDERS: PCP Internal Medicine; Referring Provider Internal Medicine; Visit Provider Internal Medicine
DX: M81.0 Age-related osteoporosis without current pathological fracture (principal)
CPT/HCPCS: 96365; J7050; A4216; J3489

== ENCOUNTER → 2022-09-26 | Outpatient (CLI) | payer MEDICARE, OTHER, SELFPAY ==
[2022-09-26 10:44] LABS: Hemoglobin 12.8 g/dL (12.0-15.0); Mean Corpuscular Hgb 29.8 pg (27.0-32.0); Mean Corpuscular Volume 93.2 fL (81-99); Mean Platelet Vol. 9.7 fl (6.2-12.0); Platelet Count 293 K/mm3 (150-450); RBC Distribution Width SD 47.8 fl (35.1-43.9); Red Blood Count 4.29 M/mm3 (4.2-5.4); White Blood Count 6.7 K/mm3 (4.4-11.0)
[2022-09-26 11:09] LABS: Vitamin D,25 Hydroxy 58.7 ng/mL
[2022-09-26 11:10] LABS: ALB/GLOB Ratio 0.9 RATIO (0.9-2.4); AST(SGOT) 32 U/L (15-37); Alanine Aminotransfer ALT/SGPT 48 U/L (13-56); Albumin, Serum 3.5 g/dL (3.2-5.0); Alkaline Phosphatase 56 U/L (45-117); Anion Gap 4 (5-15); BUN 20 mg/dL (7-18); BUN/Creat Ratio 14.6 RATIO (10-20); Calcium,Total 9.1 mg/dL (8.5-10.1); Chloride 112 mmol/L (98-107); Cholesterol 182 mg/dL (200); Creatinine, Serum 1.37 mg/dL (0.55-1.02); EST Glomerular Filtration Rate 41 mL/min (>60); Est Glom Filt Rate - Afr Amer 49 mL/min (>60); Globulin 3.9 g/dL (2.2-4.2); Glucose 133 mg/dL (74-106); High Density Lipoprotein 43 mg/dL; Potassium 4.1 mmol/L (3.5-5.1); Protein, Total 7.4 g/dL (6.4-8.2); Sodium Level 140 mmol/L (136-145); Triglycerides 272 mg/dL; Very Low Density Lipoprotein 54 mg/dL (5-40)
[2022-09-26 11:18] LABS: Hemoglobin A1c 6.3 % (3.8-5.6)
== END | disposition home or self-care (01) ==
LOC: LAB 10:23
PROVIDERS: PCP Internal Medicine; Referring Provider Internal Medicine; Visit Provider Internal Medicine
DX: I10 Essential (primary) hypertension (principal); R73.09 Other abnormal glucose; E87.6 Hypokalemia; M81.0 Age-related osteoporosis without current pathological fracture; E78.2 Mixed hyperlipidemia
CPT/HCPCS: 36415; 80053; 80061; 82306; 83036; 85027

== ENCOUNTER → 2023-04-06 | Outpatient (CLI) | payer MEDICARE, OTHER, SELFPAY ==
--- NOTE | 2023-04-06 08:47 | BI_ITS ---
MAMMOGRAPHY - BILATERAL SCREENING REASON FOR EXAM: Female, 72 years old. Routine annual screening examination. PERTINENT HISTORY: Personal history of breast cancer. Sisters with breast cancer. Prior left mastectomy and left TRAM flap reconstruction. TECHNIQUE: Digital bilateral breast cosme (3D mammographic acquisition) in the CC and MLO projections. 2-D mediolateral oblique (MLO) and craniocaudad (CC) views of both breasts were obtained. CAD: Full Field Digital Mammography with Computer Added Detection was performed. COMPARISON: Comparison is made with prior study April 05, 2022 and April 01, 2021. FINDINGS: Breast Composition: The right breast is heterogeneously dense, which may obscure small masses. Fatty appearance of the left breast secondary to left TRAM flap reconstructive surgery. Surgical clips are seen. Benign-appearing bilateral axillary lymph nodes. There are no dominant masses or suspicious calcifications. No other significant abnormalities are identified. There has been no significant change since the prior study. BI/SCRN MAMM (CAD)W/COSME BILAT IMPRESSION: Stable bilateral screening mammogram. Yearly follow-up mammogram recommended. (A) ASSESSMENT CATEGORY: BIRADS Category 2: Benign. A letter regarding these results will be sent to the patient by the facility within 30 days. Approximately 10% of breast cancers are not detected by mammography. A normal mammogram should not delay biopsy of a clinically suspicious abnormality. [id number] Electronically Signed: Kevin Guajardo MD at 12:29 EDT ,
[2023-04-06 09:12] LABS: Hematocrit 37.2 % (37-47); Hemoglobin 12.4 g/dL (12.0-15.0); Mean Corp Hgb Conc 33.3 g/dL (32-36); Mean Corpuscular Hgb 31.1 pg (27.0-32.0); Mean Corpuscular Volume 93.2 fL (81-99); Platelet Count 285 K/mm3 (150-450); RBC Distribution Width CV 13.2 % (11.6-14.6); RBC Distribution Width SD 45.1 fl (35.1-43.9); Red Blood Count 3.99 M/mm3 (4.2-5.4); White Blood Count 6.2 K/mm3 (4.4-11.0)
[2023-04-06 09:39] LABS: Vitamin D,25 Hydroxy 57.6 ng/mL
[2023-04-06 09:42] LABS: AST(SGOT) 13 U/L (15-37); Alanine Aminotransfer ALT/SGPT 26 U/L (13-56); Albumin, Serum 3.7 g/dL (3.2-5.0); Alkaline Phosphatase 52 U/L (45-117); Anion Gap 4 (5-15); BUN 23 mg/dL (7-18); BUN/Creat Ratio 13.9 RATIO (10-20); Calcium,Total 9.7 mg/dL (8.5-10.1); Chloride 109 mmol/L (98-107); Cholesterol 192 mg/dL (200); Creatinine, Serum 1.65 mg/dL (0.55-1.02); EST Glomerular Filtration Rate 33 mL/min (>60); Est Glom Filt Rate - Afr Amer 40 mL/min (>60); Globulin 3.6 g/dL (2.2-4.2); Glucose 110 mg/dL (74-106); High Density Lipoprotein 49 mg/dL; Protein, Total 7.3 g/dL (6.4-8.2); Sodium Level 138 mmol/L (136-145); Triglycerides 216 mg/dL; Very Low Density Lipoprotein 43 mg/dL (5-40)
[2023-04-06 09:52] LABS: Hemoglobin A1c 5.8 % (3.8-5.6)
== END | disposition home or self-care (01) ==
PROVIDERS: PCP Internal Medicine; Referring Provider Obstetrics & Gynecology; Visit Provider Obstetrics & Gynecology
DX: Z12.31 Encounter for screening mammogram for malignant neoplasm of breast (principal); E11.9 Type 2 diabetes mellitus without complications; E55.9 Vitamin D deficiency, unspecified
CPT/HCPCS: 36415; 77063; 77067; 80053; 80061; 82306; 83036; 85027

== ENCOUNTER → 2023-06-02 | Outpatient (CLI) | payer MEDICARE, OTHER, SELFPAY ==
[2023-06-08 22:21] LABS: HPV Reflexed? NOT INDICATED
== END | disposition home or self-care (01) ==
LOC: LABSPEC 17:05
PROVIDERS: PCP Internal Medicine; Referring Provider Obstetrics & Gynecology; Visit Provider Obstetrics & Gynecology
DX: Z12.4 Encounter for screening for malignant neoplasm of cervix (principal); C50.912 Malignant neoplasm of unspecified site of left female breast; Z91.89 Other specified personal risk factors, not elsewhere classified
CPT/HCPCS: 88175; G0145

== ENCOUNTER 2023-06-06 09:58 | Outpatient (CLI) | payer MEDICARE, OTHER, SELFPAY ==
[2023-06-06 10:14] VITALS: BP 164/69; PULSE 53; RESP 16; TEMP 35.8; O2SAT 97; BMI 37.3
[2023-06-06] MEDS: Zoledronic Acid 5 MG 100 ML 300 MG IV (10:17)
[2023-06-06 10:43] VITALS: BP 140/70; PULSE 48; RESP 16
== END 2023-06-06 09:59 | disposition home or self-care (01) ==
LOC: MEDOUTP 09:59
PROVIDERS: PCP Internal Medicine; Referring Provider Internal Medicine; Visit Provider Internal Medicine
DX: M81.0 Age-related osteoporosis without current pathological fracture (principal)
CPT/HCPCS: 96365; A4216; J3489

== ENCOUNTER → 2023-10-26 | Outpatient (CLI) | payer MEDICARE, OTHER, SELFPAY ==
[2023-10-26 08:36] LABS: Hematocrit 37.4 % (37-47); Hemoglobin 12.5 g/dL (12.0-15.0); Mean Corp Hgb Conc 33.4 g/dL (32-36); Mean Corpuscular Hgb 30.2 pg (27.0-32.0); Mean Corpuscular Volume 90.3 fL (81-99); Mean Platelet Vol. 9.8 fl (6.2-12.0); Platelet Count 260 K/mm3 (150-450); RBC Distribution Width CV 13.5 % (11.6-14.6); RBC Distribution Width SD 44.6 fl (35.1-43.9); Red Blood Count 4.14 M/mm3 (4.2-5.4); White Blood Count 8.3 K/mm3 (4.4-11.0)
[2023-10-26 08:54] LABS: Hemoglobin A1c 5.8 % (3.8-5.6)
[2023-10-26 09:07] LABS: Vitamin D,25 Hydroxy 55.9 ng/mL
[2023-10-26 09:09] LABS: ALB/GLOB Ratio 0.9 RATIO (0.9-2.4); AST(SGOT) 25 U/L (15-37); Alanine Aminotransfer ALT/SGPT 30 U/L (13-56); Albumin, Serum 3.5 g/dL (3.2-5.0); Alkaline Phosphatase 47 U/L (45-117); Anion Gap 10 (5-15); BUN 23 mg/dL (7-18); BUN/Creat Ratio 12.8 RATIO (10-20); Calcium,Total 9.5 mg/dL (8.5-10.1); Chloride 108 mmol/L (98-107); Cholesterol 202 mg/dL (200); Creatinine, Serum 1.79 mg/dL (0.55-1.02); EST Glomerular Filtration Rate 30 mL/min (>60); Est Glom Filt Rate - Afr Amer 36 mL/min (>60); Globulin 3.9 g/dL (2.2-4.2); Glucose 116 mg/dL (74-106); High Density Lipoprotein 49 mg/dL; Magnesium 1.7 mg/dL (1.6-2.6); Protein, Total 7.4 g/dL (6.4-8.2); Sodium Level 141 mmol/L (136-145); Triglycerides 226 mg/dL; Very Low Density Lipoprotein 45 mg/dL (5-40)
== END | disposition home or self-care (01) ==
PROVIDERS: PCP Internal Medicine; Referring Provider Internal Medicine; Visit Provider Internal Medicine
DX: I10 Essential (primary) hypertension (principal); R73.01 Impaired fasting glucose; Z79.899 Other long term (current) drug therapy; E55.9 Vitamin D deficiency, unspecified
CPT/HCPCS: 36415; 80053; 80061; 82306; 83036; 83735; 85027

== ENCOUNTER → 2024-03-16 | Outpatient (CLI) | payer MEDICARE, OTHER, SELFPAY ==
[2024-03-16 08:46] LABS: Hematocrit 38.8 % (37-47); Hemoglobin 12.6 g/dL (12.0-15.0); Mean Corp Hgb Conc 32.5 g/dL (32-36); Mean Corpuscular Hgb 29.6 pg (27.0-32.0); Mean Corpuscular Volume 91.1 fL (81-99); Platelet Count 262 K/mm3 (150-450); RBC Distribution Width CV 13.2 % (11.6-14.6); RBC Distribution Width SD 43.9 fl (35.1-43.9); Red Blood Count 4.26 M/mm3 (4.2-5.4); White Blood Count 6.5 K/mm3 (4.4-11.0)
[2024-03-16 09:26] LABS: Hemoglobin A1c 6.1 % (3.8-5.6)
[2024-03-16 11:15] LABS: AST(SGOT) 12 U/L (15-37); Alanine Aminotransfer ALT/SGPT 20 U/L (13-56); Albumin, Serum 3.6 g/dL (3.2-5.0); Alkaline Phosphatase 56 U/L (45-117); Anion Gap 8 (5-15); BUN 20 mg/dL (7-18); BUN/Creat Ratio 12.5 RATIO (10-20); Calcium,Total 9.6 mg/dL (8.5-10.1); Chloride 114 mmol/L (98-107); Cholesterol 172 mg/dL (200); EST Glomerular Filtration Rate 34 mL/min (>60); Est Glom Filt Rate - Afr Amer 41 mL/min (>60); Globulin 3.7 g/dL (2.2-4.2); Glucose 121 mg/dL (74-106); High Density Lipoprotein 51 mg/dL; Magnesium 1.6 mg/dL (1.6-2.6); Potassium 3.8 mmol/L (3.5-5.1); Protein, Total 7.3 g/dL (6.4-8.2); Sodium Level 142 mmol/L (136-145); Triglycerides 188 mg/dL; Very Low Density Lipoprotein 38 mg/dL (5-40)
[2024-03-18 08:19] LABS: Vitamin D,25 Hydroxy 37.7 ng/mL
== END | disposition home or self-care (01) ==
LOC: LAB 08:13
PROVIDERS: PCP Internal Medicine; Referring Provider Internal Medicine; Visit Provider Internal Medicine
DX: R73.01 Impaired fasting glucose (principal); I10 Essential (primary) hypertension; E83.42 Hypomagnesemia; E78.2 Mixed hyperlipidemia; E55.9 Vitamin D deficiency, unspecified
CPT/HCPCS: 36415; 80053; 80061; 82306; 83036; 83735; 85027

== ENCOUNTER → 2024-04-09 | Outpatient (CLI) | payer MEDICARE, OTHER, SELFPAY ==
--- NOTE | 2024-04-09 08:10 | BI_ITS ---
MAMMOGRAPHY - BILATERAL SCREENING 3-D TOMOSYNTHESIS REASON FOR EXAM: Female, 73 years old. Screening for breast cancer PERTINENT HISTORY: No significant family history. TECHNIQUE: 2-D mammograms and 3-D Tomosynthesis of the breast (s) were performed. CAD was performed. COMPARISON: 04/06/2023 FINDINGS: The breast composition is composed of scattered fibroglandular density. Scattered benign calcifications are seen. No dense spiculated masses or suspicious microcalcifications are identified. No architectural distortion is identified. There is no skin thickening or retraction. There has been no significant change since the prior study. Status post left TRAM flap reconstruction which is unchanged. BI/SCRN MAMM (CAD)W/COSME BILAT IMPRESSION: No mammographic signs of malignancy. Routine yearly mammograms recommended. ASSESSMENT CATEGORY: BIRADS Category 2: Benign. A letter regarding these results will be sent to the patient by the facility within 30 days. FOLLOW UP RECOMMENDATION: Yearly follow up mammogram recommended. (A) Approximately 10% of breast cancers are not detected by mammography. A normal mammogram should not delay biopsy of a clinically suspicious abnormality. Electronically Signed: Preston Bhat MD at 10:08 EDT ,
== END | disposition home or self-care (01) ==
LOC: OPBI 08:10
PROVIDERS: PCP Internal Medicine; Referring Provider Obstetrics & Gynecology; Visit Provider Obstetrics & Gynecology
DX: Z12.31 Encounter for screening mammogram for malignant neoplasm of breast (principal)
CPT/HCPCS: 77063; 77067

== ENCOUNTER → 2024-04-30 | Outpatient (CLI) | payer MEDICARE, OTHER, SELFPAY ==
--- NOTE | 2024-04-30 15:17 | BD_ITS ---
STUDY: DUAL ENERGY X-RAY ABSORPTIOMETRY / DXA REASON FOR EXAM: Female, 73 years old. [id number] TECHNIQUE: Bone Mineral Density (BMD) measurements of lumbar spine and bilateral hips were obtained. COMPARISON: Comparison is made with prior study April 05, 2022. FINDINGS: Lumbar Spine (L1-L4): g/cm2 (0.888) / T-score (-0.8) / Z-score (1.2) Findings are suggestive of normal bone density with a low fracture risk. Left Femur Total: g/cm2 (0.871) / T-score (-0.6) / Z-score (1.0) Left Femoral Neck: g/cm2 (0.695) / T-score (-1.4) / Z-score (0.5) Right Femur Total: g/cm2 (0.858) / T-score (-0.7) / Z-score (0.9) Right Femoral Neck: g/cm2 (0.707) / T-score (-1.3) / Z-score (0.7) The T-Scores on the most recent prior examination were: Lumbar Spine (L1-L4): There has been improvement of bone density since the previous examination. Left Femur Total: which represents an improvement of 3.9%. Right Femur Total: which represents an improvement of 1.2%. BD/Dexa Bone Density Study IMPRESSION: The patient is considered osteopenic as outlined below according to World [place] Organization (WHO) criteria with a low fracture risk. There has been improvement of bone density since the previous examination. Reference Information: The T-score is the number of standard deviations above or below the standard which is normal for young adults at their peak bone mineral density. The World Health Organization (WHO) interprets the T-scores as follows: Above -1 Normal bone density Between -1 and -2.5 Osteopenia Equal to / or below -2.5 Osteoporosis As a practical clinical guideline, osteopenia may be graded as follows: Mild -1 through -1.5 Moderate -1.6 through -2.0 Severe -2.1 through -2.4 The Z-score is the number of standard deviations above or below age-matched controls. A Z-score of less than -1.5 would be considered abnormal. References: 1. NIH Osteoporosis and Related Bone Diseases www osteo.org 2. International Society for Clinical Densitometry www iscd.org 3. National Osteoporosis Foundation www nof.org Electronically Signed: Kevin Guajardo MD at 15:09 EST ,
== END | disposition home or self-care (01) ==
LOC: OPBD 15:15
PROVIDERS: PCP Internal Medicine; Referring Provider Internal Medicine; Visit Provider Internal Medicine
DX: Z78.0 Asymptomatic menopausal state (principal)
CPT/HCPCS: 77080

== ENCOUNTER 2024-06-06 08:50 | Outpatient (CLI) | payer MEDICARE, OTHER, SELFPAY ==
[2024-06-06 09:04] VITALS: BP 176/58; PULSE 52; RESP 16; TEMP 36.4; O2SAT 98; BMI 37.0
[2024-06-06] MEDS: 0.9% NaCl Peripheral Flush Adult/Peds IV (09:22)
[2024-06-06] MEDS: ZOLEDRONIC ACID IV (09:23)
[2024-06-06] MEDS: 0.9% NaCl IVPB Med Flush (250 mL) 15 ML IV (09:23)
[2024-06-06] MEDS: PREMIXED IV (09:23)
[2024-06-06 10:04] VITALS: BP 167/71; PULSE 50; RESP 16; TEMP 36.8; O2SAT 97
== END 2024-06-06 23:59 | disposition home or self-care (01) ==
LOC: MEDOUTP 08:51
PROVIDERS: PCP Internal Medicine; Referring Provider Internal Medicine; Visit Provider Internal Medicine
DX: M81.0 Age-related osteoporosis without current pathological fracture (principal)
CPT/HCPCS: 96365; A4216; J3489

== ENCOUNTER → 2024-06-11 | Outpatient (CLI) | payer MEDICARE, OTHER, SELFPAY ==
[2024-06-20 14:16] LABS: HPV Reflexed? NOT INDICATED
== END | disposition home or self-care (01) ==
LOC: LABSPEC 16:37
PROVIDERS: PCP Internal Medicine; Referring Provider Obstetrics & Gynecology; Visit Provider Obstetrics & Gynecology
DX: C53.9 Malignant neoplasm of cervix uteri, unspecified (principal); Z78.0 Asymptomatic menopausal state; Z12.4 Encounter for screening for malignant neoplasm of cervix
CPT/HCPCS: 88175; G0145

== ENCOUNTER → 2024-09-27 | Outpatient (CLI) | payer MEDICARE, OTHER, SELFPAY ==
[2024-09-27 08:52] LABS: Hematocrit 37.2 % (37-47); Hemoglobin 12.2 g/dL (12.0-15.0); Mean Corp Hgb Conc 32.8 g/dL (32-36); Mean Corpuscular Volume 91.4 fL (81-99); Platelet Count 272 K/mm3 (150-450); RBC Distribution Width CV 13.6 % (11.6-14.6); Red Blood Count 4.07 M/mm3 (4.2-5.4); White Blood Count 7.6 K/mm3 (4.4-11.0)
[2024-09-27 09:38] LABS: Hemoglobin A1c 6.1 % (<=5.6)
[2024-09-27 09:51] LABS: ALB/GLOB Ratio 1.3 RATIO (0.9-2.4); AST(SGOT) 17 U/L (<=31); Alanine Aminotransfer ALT/SGPT 13 U/L (<=34); Albumin, Serum 4.1 g/dL (3.4-4.8); Alkaline Phosphatase 50 U/L (35-104); Anion Gap 12 (5-15); BUN 23 mg/dL (4-19); BUN/Creat Ratio 15.6 RATIO (10-20); Calcium,Total 9.5 mg/dL (7.6-11.0); Carbon Dioxide 18.7 mmol/L (21.0-32.0); Chloride 112 mmol/L (98-108); Cholesterol 192 mg/dL (<=200); Creatinine, Serum 1.48 mg/dL (0.70-1.20); EST Glomerular Filtration Rate 38 (>60); Globulin 3.1 g/dL (2.2-4.2); Glucose 115 mg/dL (70-99); High Density Lipoprotein 53 mg/dL; Low Density Lipoprotein Calc. 105 mg/dL; Magnesium 1.8 mg/dL (1.5-2.2); Potassium 3.8 mmol/L (3.3-5.1); Protein, Total 7.2 g/dL (5.9-8.4); Sodium Level 142 mmol/L (133-145); Total Bilirubin 0.48 mg/dL (0.00-1.30); Triglycerides 173 mg/dL; Very Low Density Lipoprotein 35 mg/dL (5-40); cholesterol:hdl ratio screen 3.64
[2024-09-27 09:52] LABS: Vitamin D,25 Hydroxy 33.6 ng/mL (30-100)
== END | disposition home or self-care (01) ==
LOC: LAB 08:05
PROVIDERS: PCP Internal Medicine; Referring Provider Internal Medicine; Visit Provider Internal Medicine
DX: M81.0 Age-related osteoporosis without current pathological fracture (principal); E11.9 Type 2 diabetes mellitus without complications; Z79.899 Other long term (current) drug therapy; E78.2 Mixed hyperlipidemia; I10 Essential (primary) hypertension
CPT/HCPCS: 36415; 80053; 80061; 82306; 83036; 83735; 85027

== ENCOUNTER → 2025-04-05 | Outpatient (CLI) | payer MEDICARE, OTHER, SELFPAY ==
[2025-04-05 10:52] LABS: Hematocrit 42.8 % (37-47); Hemoglobin 14.0 g/dL (12.0-15.0); Mean Corp Hgb Conc 32.7 g/dL (32-36); Mean Corpuscular Volume 90.5 fL (81-99); Mean Platelet Vol. 10.4 fl (6.2-12.0); Platelet Count 289 K/mm3 (150-450); RBC Distribution Width CV 13.3 % (11.6-14.6); RBC Distribution Width SD 44.3 fl (35.1-43.9); Red Blood Count 4.73 M/mm3 (4.2-5.4); White Blood Count 7.1 K/mm3 (4.4-11.0)
[2025-04-05 11:56] LABS: Creatinine, Urine (random) 36.30 mg/dL (28.00-217.00); Microalbumin,Random Urine 56.7 mg/L (<20 mg/L)
[2025-04-05 12:18] LABS: AST(SGOT) 20 U/L (<=31); Alanine Aminotransfer ALT/SGPT 19 U/L (<=34); Albumin, Serum 4.3 g/dL (3.4-4.8); Alkaline Phosphatase 61 U/L (35-104); Anion Gap 12 (5-15); BUN 23 mg/dL (4-19); BUN/Creat Ratio 14.7 RATIO (10-20); Calcium,Total 9.7 mg/dL (7.6-11.0); Carbon Dioxide 20.5 mmol/L (21.0-32.0); Chloride 107 mmol/L (98-108); Cholesterol 202 mg/dL (<=200); Globulin 3.4 g/dL (2.2-4.2); Glucose 116 mg/dL (70-99); Low Density Lipoprotein Calc. 114 mg/dL; Magnesium 2.0 mg/dL (1.5-2.2); Potassium 4.5 mmol/L (3.3-5.1); Triglycerides 168 mg/dL; Very Low Density Lipoprotein 34 mg/dL (5-40); Vitamin D,25 Hydroxy 32.9 ng/mL (30-100); cholesterol:hdl ratio screen 3.70
== END | disposition home or self-care (01) ==
LOC: LAB 09:20
PROVIDERS: PCP Internal Medicine; Referring Provider Internal Medicine; Visit Provider Internal Medicine
DX: E55.9 Vitamin D deficiency, unspecified (principal); E11.9 Type 2 diabetes mellitus without complications; Z79.899 Other long term (current) drug therapy; E78.2 Mixed hyperlipidemia; I10 Essential (primary) hypertension
CPT/HCPCS: 36415; 80053; 80061; 82043; 82306; 82570; 83036; 83735; 85027

== ENCOUNTER → 2025-04-11 | Outpatient (CLI) | payer MEDICARE, OTHER, SELFPAY ==
--- NOTE | 2025-04-11 10:00 | BI_ITS ---
EXAM: SCRN MAMM (CAD)W/COSME BILAT DATE: 04/11/2025 CLINICAL HISTORY: F, Age 74 y/o , BREAST CANCER SCREENING TECHNIQUE: Procedure Code: [id number] Modality: MG Procedure: SCRN MAMM (CAD)W/COSME BILAT COMPARISON: Prior exam(s) dated 04/09/2024, 04/06/2023. FINDINGS: TISSUE DENSITY: The breasts are heterogeneously dense, which may obscure small masses. The mammogram demonstrates that the patient has dense breasts. Supplemental screening with whole breast ultrasound or MRI may be considered for further evaluation. Bilateral Breast Mammographic Findings: No significant masses, calcifications or other abnormalities are identified. BI/SCRN MAMM (CAD)W/COSME BILAT IMPRESSION: There is no mammographic evidence of malignancy. OVERALL FINAL ASSESSMENT BI-RADS 1: NEGATIVE. RECOMMENDATION: Routine annual follow-up in 1 Year Additional Recommendation none A letter with findings and recommendations will be mailed to the patient. Reading Location: [id number]
== END | disposition home or self-care (01) ==
LOC: OPBI 09:52
PROVIDERS: PCP Internal Medicine; Referring Provider Obstetrics & Gynecology; Visit Provider Obstetrics & Gynecology
DX: Z12.31 Encounter for screening mammogram for malignant neoplasm of breast (principal)
CPT/HCPCS: 77063; 77067

== ENCOUNTER → 2025-05-10 | Outpatient (CLI) | payer MEDICARE, OTHER, SELFPAY ==
--- OUTSIDE RECORDS SUMMARY | 2025-05-10 08:02 | XMS RPT_ITS | CCD ---
Author Organization [facility] Care Team Providers Care Taping Foreman Name Role Phone Kathia Tavares MD Primary Care Provider Dr. Kathia Tavares Primary Care Provider Dr. Kathia Tavares Referring Provider Dr. Carlee Nazario Attending Provider [phone] Kathia Tavares MD Primary Care Provider Kathia Tavares MD Primary Care Provider Anusha RIDDLE, Dr. Kathia Santos Primary Care Provider Anusha RIDDLE, Dr. Kathia Santos Attending Provider Anusha RIDDLE, Dr. Kathia Santos Referring Provider Dr. Nancy Franklin DO Attending Provider Dr. Nancy Franklin DO Referring Provider Hemanth SALES STRATEGY MANAGER.AIR QUALITY CHEMIST, Aysha Unavailable Shawn SALES STRATEGY MANAGER.FIELD MARKETING MANAGER, Danni Unavailable Hemanth SALES STRATEGY MANAGER.AIR QUALITY CHEMIST, Aysha Unavailable KATHIA TAVARES Attending Unavailable HARJITAMPVIDAL, KATHIA D Primary Care Unavailable HARJITAMPVIDAL, KATHIA D Attending Unavailable HARJITAMPVIDAL, KATHIA D Primary Care Unavailable Nancy Franklin Attending Unavailabl e Talampas, Kathia D Primary Care Unavailable Nancy Franklin Referring Unavailabl e Talampas, Kathia D Referring Unavailable Talampas, Kathia D Attending Unavailable Harjitampas, Kathia D Primary Care Unavailable Talampas, Kathia D Referring Unavailable Talampas, Kathia D Attending Unavailable Talampas, Kathia D Primary Care Unavailable Talampas, Kathia D Referring Unavailable Nancy Franklin Attending Unavailabl e Talampas, Kathia D Primary Care Unavailable Nancy Franklin Attending Unavailabl e Talampas, Katiha D Primary Care Unavailable Nancy Franklin Referring Unavailabl e Talampas, Kathia D Primary Care Unavailable Talampas, Kahtia D Referring Unavailable Talampas, Kathia D Attending Unavailable Talampas, Kathia D Primary Care Unavailable Talampas, Kathia D Referring Unavailable Talampas, Kathia D Attending Unavailable Allergies Allergy Classification Reported Allergen(s) Allergy Type Date of Onset Reaction(s) Facility (20 sources) Cetirizine; Translations: [CETIRIZINE HCL] Drug Allergy 5 [facility] (8 sources) Clindamycin Drug Allergy 1 [facility] (20 sources) Codeine; Translations: [CODEINE] Drug Allergy 8 Intolerance [facility] Work Phone: (9 sources) fexofenadine; Translations: [fexofenadine HCl] Drug Allergy 1 Other [facility] Comment on above: headache (9 sources) Meperidine; Translations: [meperidine HCl] Drug Allergy 1 Low blood pressure [facility] (20 sources) Penicillins; Translations: [PENICILLINS] Allergy to substance 4 [facility] (20 sources) Triamterene; Translations: [TRIAMTERENE] Drug Allergy 1 Intolerance [facility] Work Phone: (16 sources) Ciprofloxacin; Translations: [CIPROFLOXACIN] Drug Allergy 1 Rash [facility] Work Phone: (16 sources) Pethidine analog; Translations: [OPIOIDS-MEPERI DINE AND RELATED] Propensity to adverse reactions 4 Anaphylaxis [facility] (16 sources) Simvastatin; Translations: [SIMVASTATIN] Drug Allergy 5 Other: See Comments [facility] Work Phone: (1 source) Clindamycin Drug Allergy 4 [facility] (1 source) Codeine Drug Allergy 4 [facility] (1 source) Triamterene Drug Allergy 4 [facility] Medications Current Medications Medication Drug Class(es) Dates Sig (Normalized) Sig (Original) acetaminophen 325 mg / oxyCODONE hydrochloride 5 mg oral tablet (16 sources) Opioid Agonist Start: 10-09-2020 End: 10-16-2023 take 1 tablet by mouth twice daily as needed for pain oxyCODONE-acetaminop hen (PERCOCET) 5-325 mg tablet Indications: Sciatica of right side Take 1 tablet by mouth two times a day as needed for pain for up to 7 days. 14 tablet 10/09/2023 Active Comment on above: Take 1 tablet by dieter twice daily as needed for Pain for up to 7 days. Take 1 tablet by dieter two times a day as needed for pain for up to 7 days. atenolol 25 mg oral tablet (15 sources) beta-Adrenergic Harriet Start: 09-28-2022 End: 10-01-2024 take 1 tablet by mouth once daily atenolol (TENORMIN) 25 mg tablet Indications: Migraine with aura and without status migrainosus, not intractable Take 1 tablet by mouth once daily. 90 tablet 3 10/01/2024 Active Comment on above: Take 1 tablet by dieter once daily. benzonatate 200 mg oral capsule (15 sources) Non-narcotic Antitussive Start: 03-28-2020 End: 03-29-2024 take 1 capsule by mouth every eight hours as needed Benzonatate (TESSALON) 200 mg capsule Take 1 capsule by mouth three times a day as needed. 50 capsule 3 03/29/2024 Active Comment on above: Take 1 capsule by mo [facility] three times daily as needed. cholecalciferol 0.125 mg oral capsule (16 sources) Vitamin D Start: 06-11-2024 take 1 capsule by mouth once daily Cholecalciferol (Vitamin D3) 125 mcg (5,000 unit) capsule Active 125 ug PO daily June 11, 2024 1:00am Start: 10-20-2014 take 1 capsule by mo [facility] once daily Cholecalciferol, Vitamin D3, 5,000 unit cap Indications: Vitamin D deficiency Take 1 capsule by mouth once daily. 10/20/2014 Active Comment on above: Take 1 capsule by [facility] once daily. Coconut Oil (8 sources) Start: 05-05-2021 Coconut Oil Ac tive MG PO May 05, 2021 12:38pm Start: 05-05-2021 End: 05-16-2022 Coconut Oil 1,000 mg capsule Discontinued mg PO May 05, 2021 1:00am May 16, 2022 12:37pm Start: 05-05-2021 End: 05-16-2022 Coconut Oil Discontinued MG PO May 05, 2021 1:00am May 16, 2022 12:37pm Start: 05-05-2021 End: 05-16-2022 Coconut Oil Discontinued MG PO May 05, 2021 12:00am May 16, 2022 11:37am Start: 05-05-2021 Coconut Oil Ac tive MG PO May 05, 2021 1:00am COMPOUNDED PRESCRIPTION (15 sources) Start: 06-10-2008 COMPOUNDED PRESCRIPTION nasal CPAP with a setting of 5cm with a heated humidity and medium comfort gel mask. Dx is obstructive sleep apnea. 1 0 06/10/2008 Active Comment on above: nasal CPAP with a se tting of 5cm with a heated humidity and medium comfort gel mask. Dx is obstructive sleep apnea. CPAP (15 sources) Start: 06-12-2017 CPAP CPAP supp lies: Mask (per patient preference) optional chin strap/head gear (if indicated) , filters, tubing, humidifier and lifetime supplies. (G47.33) SHALOM (obstructive sleep apnea) 1 Device 06/12/2017 Active Start: 06-12-2017 CPAP CPAP supp lies: Mask (per patient preference) optional chin strap/head gear (if indicated) , filters, tubing, humidifier and lifetime supplies. (G47.33) SHALOM (obstructive sleep apnea) 1 Device 0 06/12/2017 Active Comment on above: CPAP supplies: Mask (per patient preference) optional chin strap/head gear (if indicated) , filters, tubing, humidifier and lifetime supplies. (G47.33) SHALOM (obstructive sleep apnea) magnesium oxide 400 mg oral tablet (20 sources) Start: 01-17-2014 take 1 tablet by mouth once daily Magnesium Oxide 400 MG tablet Active 400 mg PO DAILY January 17, 2014 12:00am Start: 04-01-2013 take 1 tablet by dieter th twice daily magnesium oxide (MAG-OXIDE) 400 mg tablet Indications: Hypomagnesemia Take 1 tablet by mouth twice daily. 04/01/2013 Active Comment on above: Take 1 tablet by dieter th twice daily. 24 hr metFORMIN hydrochloride 500 mg extended release oral tablet (15 sources) Biguanide Start: 06-06-2023 take 1 tablet by mouth once daily Metformin 500 mg tablet Active 500 mg PO DAILY June 06, 2023 1:00am Start: 09-28-2022 End: 10-01-2024 take 1 tablet by mouth once daily at breakfast metFORMIN ER (GLUCOPHAGE XR) 500 mg 24 hr tablet Take 1 tablet by mouth daily with breakfast. 90 tablet 3 10/01/2024 Active Comment on above: Take 1 tablet by dieter th daily with breakfast. omeprazole 40 mg delayed release oral capsule (8 sources) Proton Pump Inhibitor Start: 01-17-2014 Omeprazole 40 MG capsule,delayed release(DR/EC) Active 20 mg PO DAILY January 17, 2014 12:00am Start: 01-17-2014 take 20 mg by mouth once daily Omeprazole Active 20 MG PO DAILY January 17, 2014 12:00am pantoprazole 20 mg delayed release oral tablet (18 sources) Proton Pump Inhibitor Start: 10-15-2021 End: 10-01-2024 take 1 tablet by mouth once daily before breakfast pantoprazole DR (PROTONIX) 20 mg tablet Indications: Gastroesophageal reflux disease without esophagitis Take 1 tablet by mouth daily before breakfast. Take on empty stomach, 1/2 hr before meal. 90 tablet 3 10/01/2024 Active Comment on above: Take 1 tablet by dieter th daily before breakfast. Take on empty stomach, 1/2 hr before meal. PARoxetine hydrochloride 10 mg oral tablet (20 sources) Serotonin Reuptake Inhibitor Start: 05-31-2019 End: 10-01-2024 take 1 tablet by mouth once daily PARoxetine (PAXIL) 10 mg tablet Take 1 tablet by mouth once daily. 90 tablet 3 10/01/2024 Active Comment on above: Take 1 tablet by dieter th once daily. pravastatin sodium 20 mg oral tablet (20 sources) HMG-CoA Reductase Inhibitor Start: 05-28-2015 End: 10-01-2024 take 1 tablet by mouth once daily pravastatin (PRAVACHOL) 20 mg tablet Indications: Mixed hyperlipidemia Take 1 tablet by mouth once daily. 90 tablet 3 10/01/2024 Active Comment on above: Take 1 tablet by dieter th once daily. 72 hr scopolamine 0.0139 mg/hr transdermal system (16 sources) Anticholinergic Start: 01-07-2023 scopolamine (TRANSDERM-SCOP) patch 1.5 mg/72 hr (delivers 1 mg over 3 days) Apply first patch at least 4 hours prior to traveling. Apply every 3 days as needed during travel. 6 Patch 1 01/07/2023 Active Start: 08-17-2016 End: 12-30-2022 scopolamine (TRANSDERM-SCOP) patch 1.5 mg/72 hr (delivers 1 mg over 3 days) Apply first patch at least 4 hours prior to traveling. Apply every 3 days as needed during travel. 6 Patch 1 12/30/2022 Active Comment on above: Apply first patch at least 4 hours prior to traveling. Apply every 3 days as needed during travel. topiramate 50 mg oral tablet (20 sources) Start: End: 5 take 1 tablet by mouth once daily at bedtime topiramate (TOPAMAX) 50 mg tablet Indications: Migraine with aura and without status migrainosus, not intractable Take 1 tablet by mouth daily at bedtime. 90 tablet 3 10/01/2024 Active Comment on above: Take 1 tablet by dieter th daily at bedtime. valsartan 80 mg oral tablet (9 sources) Angiotensin 2 Receptor Harriet Start: 4 take 2 tablets by mouth once daily Valsartan (Diovan) 40 mg tablet Active 80 mg PO DAILY June 11, 2024 9:34am Start: 06-06-2024 End: 06-11-2024 take 1 tablet by mouth once daily Valsartan (Diovan) 40 mg tablet Discontinued 40 mg PO DAILY June 06, 2024 1:00am June 11, 2024 9:35am Start: 03-26-2024 End: 10-01-2024 take 1 tablet by mouth once daily valsartan (DIOVAN) 80 mg tablet Take 1 tablet by mouth once daily. 90 tablet 3 10/01/2024 Active Vitamin B Complex (15 sources) take 1 tablet by dieter th once daily VITAMIN B COMPLEX (SUPER B COMPLEX ORAL) Take 1 tablet by mouth once daily. Active take 1 tablet by mouth once ashley y VITAMIN B COMPLEX (SUPER B COMPLEX ORAL) Take 1 tablet by mouth once daily. 0 Active Comment on above: Take 1 tablet by dieter th once daily. Zinc (8 sources) Start: 05-05-2021 take 50 mg by mouth once daily Zinc Active 50 MG PO DAILY May 05, 2021 12:36pm Start: 05-05-2021 take 1 tablet by mouth once da yris Zinc 50 mg tablet Active 50 mg PO DAILY May 05, 2021 1:00am Start: 05-05-2021 take 50 mg by mouth once daily Zinc Active 50 MG PO DAILY May 05, 2021 12:00am Start: 05-05-2021 take 50 mg by mouth once daily Zinc Active 50 MG PO DAILY May 05, 2021 1:00am Zinc Acetate (15 sources) ZINC ACETATE ORA L Take by mouth. Active ZINC ACETATE ORA L Take by mouth. 0 Active Comment on above: Take by mouth. 100 ml zoledronic acid 0.05 mg/ml injection (14 sources) Bisphosphonate Start: 04-05-2024 End: 05-05-2024 zoledronic acid 5 mg PREMIX piggyback (RECLAST) Start: 04-26-2021 End: 04-05-2024 inject 100 mL intravenously once zoledronic acid (RECL AST) 5 mg/100 mL pgbk PREMIX piggyback Indications: Age-related osteoporosis without current pathological fracture Inject 100 mL intravenously one time only for 1 dose. At [facility]. M81.0 (Due in May) 100 mL 04/12/2023 04/05/2024 Discontinued Comment on above: Inject 100 mL intrav enously one time only for 1 dose. At [facility]. M81.0 (Due in May) Completed/Discontinued Medications Medication Drug Class(es) Dates Sig (Normalized) Sig (Original) ergocalciferol 0.05 mg oral tablet (8 sources) Provitamin D2 Compound Start: 01-17-2014 End: 06-11-2024 Ergocalciferol (Vitamin D2) 2,000 UNIT tablet Discontinued 5000 U PO DAILY January 17, 2014 12:00am June 11, 2024 9:34am Start: 01-17-2014 take 5000 [IU] by mo [facility] every month Ergocalciferol (Vitamin D2) Active 5000 UNIT PO EVERY MONTH January 17, 2014 12:00am hydroCHLOROthiazide 25 mg oral tablet (20 sources) Thiazide Diuretic Start: 10-15-2021 End: 03-26-2024 take 1 tablet by mouth once daily hydroCHLOROthiazide 25 mg tablet Indications: Essential hypertension Take 1 tablet by mouth once daily. 90 tablet 3 10/09/2023 03/26/2024 Discontinued Start: 01-17-2014 End: 06-06-2024 take 2 capsules by mouth once daily Hydrochlorothiazide 12.5 MG capsule Discontinued 25 mg PO DAILY January 17, 2014 12:00am June 06, 2024 10:03am Start: 01-17-2014 take 25 mg by mouth once daily Hydrochlorothiazide Active 25 MG PO DAILY January 17, 2014 12:00am Comment on above: Take 1 tablet by dieter once daily. nadolol 20 mg oral tablet (8 sources) beta-Adrenergic Harriet Start: 06-14-20 End: 03-26-20 take 1 tablet by mouth once daily nadolol (CORGARD) 20 mg tablet Indications: Ocular migraine Take 1 tablet by mouth once daily. 90 tablet 3 10/09/2023 03/26/2024 Discontinued Comment on above: Take 1 tablet by dieter once daily. nitrofurantoin, macrocrystals 100 mg oral capsule (8 sources) Nitrofuran Antibacterial Start: 01-18-20 End: 01-20-20 take 1 capsule by mouth twice daily Nitrofurantoin Macrocrystal 100 MG capsule Discontinued 100 mg PO TWICE A DAY January 17, 2014 12:00am January 19, 2014 11:09am potassium chloride 10 meq extended release oral tablet (20 sources) Start: 01-18-20 End: 06-06-20 take 2 tablets by mouth twice daily potassium chloride (K-TAB) 10 mEq tablet Indications: Hypopotassemia TAKE TWO TABLETS BY MOUTH 2 TIMES A DAY DIRECTED 360 tablet 3 10/09/2023 03/26/2024 Discontinued Start: 01-17-2014 take 20 mEq by mouth twice bouchra ly Potassium Chloride Active 20 MEQ PO TWICE A DAY January 17, 2014 12:00am Start: 01-17-2014 take 20 mEq by mouth twice bouchra ly Potassium Chloride Active 20 MEQ PO TWICE A DAY January 17, 2014 12:00am Comment on above: TAKE TWO TABLETS BY MOUTH 2 TIMES A DAY DIRECTED Problems Active Problems Problem Classification Problem Date Documented Date Episodic/Chronic Cancer of breast (20 sources) Malignant tumor of breast ; Translations: [Malignant neoplasm of unspecified site of left female breast] Onset: 4 Resolved: 6 11-30-2016 Chronic Comment on above: Negative Empower billie t Cancer of cervix (1 source) Malignant neoplasm of cervix uteri, unspecified; Translations: [Malignant neoplasm of cervix uteri, unspecified] Onset: 5 Chronic Chronic kidney disease (18 sources) Chronic kidney disease stage 3; Translations: [CKD (chronic kidney disease) stage 3, GFR 30-59 ml/min] Onset: 7 04-18-2017 Chronic Chronic kidney disease (1 source) Chronic kidney disease; Translations: [Stage 3b chronic kidney disease (HCC)] Onset: 7 Chronic obstructive pulmonary disease and bronchiectasis (8 sources) Bronchitis; Translations: [Bronchitis, not specified as acute or chronic] 11-09-2017 Episodic Diabetes mellitus with complications (1 source) Type 2 diabetes mellitus with other diabetic kidney complication; Translations: [Microalbuminuria due to type 2 diabetes mellitus (HCC)] Onset: 5 Chronic Diabetes mellitus without complication (4 sources) Type 2 diabetes mellitus without complication; Translations: [Type 2 diabetes mellitus without complications] Onset: 5 Chronic Disorders of lipid metabolism (20 sources) Mixed hyperlipidemia; Translations: [Mixed hyperlipidemia] Onset: 5 Chronic Esophageal disorders (19 sources) Gastroesophageal reflux disease; Translations: [Gastro-esophageal reflux disease without esophagitis] Onset: 6 08-23-2005 Chronic Essential hypertension (20 sources) Hypertensive disorder; Translations: [Essential (primary) hypertension] Onset: 6 Chronic Genitourinary symptoms and ill-defined conditions (1 source) Proteinuria, unspecified; Translations: [Microalbuminuria due to type 2 diabetes mellitus (HCC)] Onset: 5 Episodic Headache; including migraine (20 sources) Migraine; Translations: [Migraine, unspecified, not intractable, without status migrainosus] Onset: 5 04-24-2016 Chronic Immunizations and screening for infectious disease (1 source) Encounter for immunization; Translations: [Encounter for immunization] Onset: 5 Episodic Nutritional deficiencies (20 sources) Vitamin D deficiency; Translations: [Vitamin D deficiency, unspecified] Onset: 0 Chronic Osteoporosis (20 sources) Senile osteoporosis; Translations: [Age-related osteoporosis without current pathological fracture] Onset: 6 Chronic Other aftercare (2 sources) Long-term current use of drug therapy; Translations: [Other assistant terminal manager (current) drug therapy] 03-26-2024 Episodic Other aftercare (1 source) Other assistant terminal manager (current) drug therapy; Translations: [Encounter for long-term current use of medication] Onset: 5 Episodic Other bone disease and musculoskeletal deformities (1 source) Osteopenia; Translations: [Other specified disorders of bone density and structure, right thigh] 10-01-2024 Episodic Other gastrointestinal disorders (15 sources) Irritable bowel syndrome; Translations: [Irritable bowel syndrome without diarrhea] Onset: 6 08-23-2005 Chronic Other nervous system disorders (2 sources) Bilateral peripheral neuropathy of lower limbs; Translations: [Unspecified mononeuropathy of bilateral lower limbs] 10-09-2023 Chronic Other nervous system disorders (1 source) Other specified polyneuropathies; Translations: [Other specified polyneuropathies] Onset: 5 Chronic Other nutritional; endocrine; and metabolic disorders (18 sources) Hypomagnesemia; Translations: [Hypomagnesemia] Onset: 3 03-12-2013 Chronic Other nutritional; endocrine; and metabolic disorders (1 source) Obesity caused by energy imbalance; Translations: [Class 2 obesity due to excess calories with body mass index (BMI) of 39.0 to 39.9 in adult, unspecified whether serious comorbidity present] 03-26-2024 Chronic Other nutritional; endocrine; and metabolic disorders (1 source) Hypomagnesemia; Translations: [Hypomagnesemia] Onset: 3 Chronic Other screening for suspected conditions (not mental disorders or infectious disease) (1 source) Encounter for screening mammogram for malignant neoplasm of breast; Translations: [Encounter for screening mammogram for malignant neoplasm of breast] Onset: 5 Episodic Residual codes; unclassified (17 sources) Obstructive sleep apnea syndrome; Translations: [Obstructive sleep apnea (adult) (pediatric)] Onset: 8 07-06-2017 Chronic Residual codes; unclassified (1 source) Obstructive sleep apnea (adult) (pediatric); Translations: [SHALOM on CPAP] Onset: 8 Chronic Residual codes; unclassified (14 sources) Patient encounter status; Translations: [Other specified personal risk factors, not elsewhere classified] Episodic Residual codes; unclassified (8 sources) 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; Translations: [Other specified personal risk factors, not elsewhere classified] 05-05-2021 Episodic Comment on above: continue cervical ca ncer screening Residual codes; unclassified (2 sources) Other specified personal risk factors, not elsewhere classified; Translations: [Routine gynecological examination] Episodic Residual codes; unclassified (1 source) Postmenopausal state; Translations: [Asymptomatic menopausal state] 03-26-2024 Episodic Screening and history of mental health and substance abuse codes (2 sources) Encounter for screening for depression; Translations: [Encounter for screening examination for other mental health and behavioral disorders] Onset: 5 Episodic Spondylosis; intervertebral disc disorders; other back problems (2 sources) Sciatica; Translations: [Sciatica, right side] Episodic Past or Other Problems Problem Classification Problem Date Documented Da te Episodic/Chronic Biliary tract disease (6 sources) Cholelithiasis without obstruction; Translations: [Calculus of gallbladder without cholecystitis without obstruction] Onset: 10-31-2006 Resolved: 04-24-2016 01-04-2024 Episodic Cancer of breast (20 sources) History of malignant neoplasm of breast; Translations: [Personal history of malignant neoplasm of breast] Onset: 11-02-2005 11-02-2005 Episodic Diabetes mellitus without complication (5 sources) Increased glucose level; Translations: [Other abnormal glucose] Onset: 10-01-2024 Episodic Fluid and electrolyte disorders (18 sources) Hypokalemia; Translations: [Hypokalemia] Onset: 09-17-2007 Episodic Nonmalignant breast conditions (6 sources) Breast lump; Translations: [Unspecified lump in unspecified breast] Onset: 11-02-2005 Resolved: 04-24-2016 04-24-2016 Episodic Open wounds of head; neck; and trunk (6 sources) Open wound of anterior abdominal wall ; Translations: [Unspecified open wound of abdominal wall, unspecified quadrant without penetration into peritoneal cavity, initial encounter] Onset: 10-05-2005 Resolved: 04-24-2016 04-24-2016 Episodic Other bone disease and musculoskeletal deformities (1 source) Other specified disorders of bone density and structure, right thigh; Translations: [Osteopenia of necks of both femurs] Onset: 10-01-2024 Episodic Other bone disease and musculoskeletal deformities (1 source) Other specified disorders of bone density and structure, left thigh; Translations: [Osteopenia of necks of both femurs] Onset: 10-01-2024 Episodic Other nutritional; endocrine; and metabolic disorders (13 sources) Severe obesity; Translations: [Morbid (severe) obesity due to excess calories] Onset: 05-11-2017 Resolved: 05-15-2023 11-02-2020 Chronic Other skin disorders (15 sources) Keloid scar; Translations: [Hypertrophic scar] Onset: 11-01-2007 11-01-2007 Episodic Other skin disorders (15 sources) Seborrheic keratosis; Translations: [Other seborrheic keratosis] Onset: 04-11-2016 04-11-2016 Episodic Residual codes; unclassified (1 source) Asymptomatic menopausal state; Translations: [Asymptomatic menopausal state] Onset: 05-20-2024 Episodic Unclassified (7 sources) History Tubal 01-12-2022 Unclassified (7 sources) history of extracorpereal shockwave lithotripsy 01-12-2022 Results Test Name Value Interpretation Reference Range Facility SCRN MAMM (CAD)W/COSME BILATo n 04-11-2025 SCRN MAMM (CAD)W/COSMELuis [facility] Imaging Services [address] [place] [address] SCRN MAMM (CAD)W/COSMELuis [facility] MR#: [id number] Acct: [id number] Name: OMKAR MELLO Rep #: [id number] : 1950 F 74 From: Madelin Silver MD PCP: Dr. Kathia Tavares MD Status: REG CLI Study: SCRN MAMM (CAD)W/COSME BILAT Date of Exam: 03/26 01/17 Exam# [id number] Ordering Dr: Nancy Franklin DO EXAM: SCRN MAMM (CAD)W/COSME BILAT DATE: 04/11/2025 CLINICAL HISTORY: F, Age 74 y/o , BREAST CANCER SCREENING TECHNIQUE: Procedure Code: [id number] Modality: MG Procedure: SCRN MAMM (CAD)W/COSME BILAT COMPARISON: Prior exam(s) dated 04/09/2024, 04/06/2023. FINDINGS: TISSUE DENSITY: The breasts are heterogeneously dense, which may obscure small masses. The mammogram demonstrates that the patient has dense breasts. Supplemental screening with whole breast ultrasound or MRI may be considered for further evaluation. Bilateral Breast Mammographic Findings: No significant masses, calcifications or other abnormalities are identified. BI/SCRN MAMM (CAD)W/COSME BILAT IMPRESSION: There is no mammographic evidence of malignancy. OVERALL FINAL ASSESSMENT BI-RADS 1: NEGATIVE. RECOMMENDATION: Routine annual follow-up in 1 Year Additional Recommendation none A letter with findings and recommendations will be mailed to the patient. Reading Location: [facility] SYSTEM - [place] CC: Dr. Nancy Franklin DO; Dr. Kathia Tavares MD Library Specialist: Signed Normal [facility] CBC-Complete Blood Cnt No Di ffon 04-05-2025 Erythrocyte distribution width (RBC) [Ratio] 13.3 % Normal 11.6-14.6 [facility] Comment on above: Performed By: #### L 501.9985, L501.5200, L100.0500, L500.4050, L500.4100, L506.1001, L502.0250 #### [facility] [address] [place], [place], [id number] Hematocrit (Bld) [Volume fraction] 42.8 % Normal 37-47 [facility] Comment on above: Performed By: #### L 501.9985, L501.5200, L100.0500, L500.4050, L500.4100, L506.1001, L502.0250 #### [facility] [address] [place], [address] Hemoglobin (Bld) [Mass/Vol] 14.0 g/dL Normal 12.0-15.0 [facility] Comment on above: Performed By: #### L 501.9985, L501.5200, L100.0500, L500.4050, L500.4100, L506.1001, L502.0250 #### [facility] [address] [place], [address] MCH (RBC) [Entitic mass] 29.6 pg Normal 27.0-32.0 [facility] Comment on above: Performed By: #### L 501.9985, L501.5200, L100.0500, L500.4050, L500.4100, L506.1001, L502.0250 #### [facility] [address] [place], [address] MCHC (RBC) [Mass/Vol] 32.7 g/dL Normal 32-36 [facility] Comment on above: Performed By: #### L 501.9985, L501.5200, L100.0500, L500.4050, L500.4100, L506.1001, L502.0250 #### [facility] [address] [place], [address] MCV (RBC) [Entitic vol] 90.5 fL Normal 81-99 [facility] Comment on above: Performed By: #### L 501.9985, L501.5200, L100.0500, L500.4050, L500.4100, L506.1001, L502.0250 #### [facility] [address] [place], [address] Platelet mean volume (Bld) [Entitic vol] 10.4 fL Normal 6.2-12.0 [facility] Comment on above: Performed By: #### L 501.9985, L501.5200, L100.0500, L500.4050, L500.4100, L506.1001, L502.0250 #### [facility] [address] [place], [address] Platelets (Bld) [#/Vol] 289 10*3/uL Normal 150-450 [facility] Comment on above: Performed By: #### L 501.9985, L501.5200, L100.0500, L500.4050, L500.4100, L506.1001, L502.0250 #### [facility] [address] [place], [address] RBC (Bld) [#/Vol] 4.73 10*6/uL Normal 4.2-5.4 [facility] Comment on above: Performed By: #### L 501.9985, L501.5200, L100.0500, L500.4050, L500.4100, L506.1001, L502.0250 #### [facility] [address] [place], [address] RDW SD 44.3 fl High 35.1-43.9 [facility] Comment on above: Performed By: #### L 501.9985, L501.5200, L100.0500, L500.4050, L500.4100, L506.1001, L502.0250 #### [facility] [address] [place], [address] WBC (Bld) [#/Vol] 7.1 10*3/uL Normal 4.4-11.0 [facility] Comment on above: Performed By: #### L 501.9985, L501.5200, L100.0500, L500.4050, L500.4100, L506.1001, L502.0250 #### [facility] [address] [place], [address] Comprehensive Metabolic Prof ilon 04-05-2025 Albumin [Mass/Vol] 4.3 g/dL Normal 3.4-4.8 [facility] Comment on above: Performed By: #### L 501.9985, L501.5200, L100.0500, L500.4050, L500.4100, L506.1001, L502.0250 #### [facility] [address] [place], [address] Albumin/Globulin [Mass ratio] 1.3 {ratio} Normal 0.9-2.4 [facility] Comment on above: Performed By: #### L 501.9985, L501.5200, L100.0500, L500.4050, L500.4100, L506.1001, L502.0250 #### [facility] [address] [place], [address] ALK PHOS 61 U/L Normal 35-104 [facility] Comment on above: Performed By: #### L 501.9985, L501.5200, L100.0500, L500.4050, L500.4100, L506.1001, L502.0250 #### [facility] [address] [place], [address] ALT [Catalytic activity/Vol] 19 U/L Normal <=34 [facility] Comment on above: Performed By: #### L 501.9985, L501.5200, L100.0500, L500.4050, L500.4100, L506.1001, L502.0250 #### [facility] [address] [place], [address] AST [Catalytic activity/Vol] 20 U/L Normal <=31 [facility] Comment on above: Performed By: #### L 501.9985, L501.5200, L100.0500, L500.4050, L500.4100, L506.1001, L502.0250 #### [facility] [address] [place], [address] Bilirubin [Mass/Vol] 0.47 mg/dL Normal 0.00-1.[address] [facility] Comment on above: Performed By: #### L 501.9985, L501.5200, L100.0500, L500.4050, L500.4100, L506.1001, L502.0250 #### [facility] [address] [place], [address] BUN/CRE 14.7 RATIO Normal 10-20 [facility] Comment on above: Performed By: #### L 501.9985, L501.5200, L100.0500, L500.4050, L500.4100, L506.1001, L502.0250 #### [facility] [address] [place], [address] Calcium [Mass/Vol] 9.7 mg/dL Normal 7.6-11.0 [facility] Comment on above: Performed By: #### L 501.9985, L501.5200, L100.0500, L500.4050, L500.4100, L506.1001, L502.0250 #### [facility] [address] [place], [address] Chloride [Moles/Vol] 107 mmol/L Normal 98-[address] [facility] Comment on above: Performed By: #### L 501.9985, L501.5200, L100.0500, L500.4050, L500.4100, L506.1001, L502.0250 #### [facility] [address] [place], [address] CO2 [Moles/Vol] 20.5 mmol/L Low 21.0-32.0 [facility] Comment on above: Performed By: #### L 501.9985, L501.5200, L100.0500, L500.4050, L500.4100, L506.1001, L502.0250 #### [facility] [address] [place], [address] Creatinine [Mass/Vol] 1.58 mg/dL High 0.70-1.20 [facility] Comment on above: Performed By: #### L 501.9985, L501.5200, L100.0500, L500.4050, L500.4100, L506.1001, L502.0250 #### [facility] [address] [place], [address] GAP 12 Normal 5-15 [facility] Comment on above: Performed By: #### L 501.9985, L501.5200, L100.0500, L500.4050, L500.4100, L506.1001, L502.0250 #### [facility] [address] [place], [place], [id number] (319 GFR/1.73 sq M.predicted among non-blacks MDRD (S/P/Bld) [Vol rate/Area] 35 mL/min/{1.73_m2} Low >60 [facility] Comment on above: Result Comment: mL/m in/1.73m2 CKD-EPI Creatinine Equation (2020) Performed By: #### L 501.9985, L501.5200, L100.0500, L500.4050, L500.4100, L506.1001, L502.0250 #### [facility] [address] [place], [address] Globulin (S) [Mass/Vol] 3.4 g/dL Normal 2.2-4.[address] [facility] Comment on above: Performed By: #### L 501.9985, L501.5200, L100.0500, L500.4050, L500.4100, L506.1001, L502.0250 #### [facility] [address] [place], [address] Glucose [Mass/Vol] 116 mg/dL High 70-99 [facility] Comment on above: Performed By: #### L 501.9985, L501.5200, L100.0500, L500.4050, L500.4100, L506.1001, L502.0250 #### [facility] [address] [place], [address] Potassium [Moles/Vol] 4.5 mmol/L Normal 3.3-5.1 [facility] Comment on above: Performed By: #### L 501.9985, L501.5200, L100.0500, L500.4050, L500.4100, L506.1001, L502.0250 #### [facility] [address] [place], [address] Sodium [Moles/Vol] 140 mmol/L Normal 133-145 [facility] Comment on above: Performed By: #### L 501.9985, L501.5200, L100.0500, L500.4050, L500.4100, L506.1001, L502.0250 #### [facility] [address] [place], [address] T PROT 7.7 g/dL Normal 5.9-8.4 [facility] Comment on above: Performed By: #### L 501.9985, L501.5200, L100.0500, L500.4050, L500.4100, L506.1001, L502.0250 #### [facility] [address] [place], [address] Urea nitrogen [Mass/Vol] 23 mg/dL High 4-19 [facility] Comment on above: Performed By: #### L 501.9985, L501.5200, L100.0500, L500.4050, L500.4100, L506.1001, L502.0250 #### [facility] [address] [place], [address] Hemoglobin A1con 04-05-2025 HbA1c (Bld) [Mass fraction] 6.2 % High <=5.6 [facility] Comment on above: Result Comment: Norm al < 5.7 % Prediabetic 5.7 - 6.4 % Diabetic >or= 6.5 % Please note range changes. Performed By: #### L 501.9985, L501.5200, L100.0500, L500.4050, L500.4100, L506.1001, L502.0250 #### [facility] [address] [place], [address] Lipid Profileon 04-05-2025 CHOL:HDL 3.70 Normal [facility] Comment on above: Performed By: #### L 501.9985, L501.5200, L100.0500, L500.4050, L500.4100, L506.1001, L502.0250 #### [facility] [address] [place], [address] Cholesterol [Mass/Vol] 202 mg/dL High <=200 [facility] Comment on above: Result Comment: Chol esterol level, Desirable <200 mg/dL Borderline high cholesterol 200-239 mg/dL High cholesterol >=240 mg/dL Recommendations of the NCEP Adult Treatment Panel for the following risk-cutoff thresholds for the [place] population. Performed By: #### L 501.9985, L501.5200, L100.0500, L500.4050, L500.4100, L506.1001, L502.0250 #### [facility] [address] [place], [address] Cholesterol in HDL [Mass/Vol] 55 mg/dL Normal [facility] Comment on above: Result Comment: Frida onal Cholesterol Education Program (NCEP) guidelines: <40 mg/dL: Low HDL-cholesterol (major risk factor for CHD) >= 60 mg/dL: High HDL-cholesterol (negative risk factor for CHD) HDL-cholesterol is affected by a number of factors, e.g. smoking, exercise, hormones, sex and age. Performed By: #### L 501.9985, L501.5200, L100.0500, L500.4050, L500.4100, L506.1001, L502.0250 #### [facility] [address] [place], [address] Cholesterol in LDL [Mass/Vol] 114 mg/dL Normal [facility] Comment on above: Result Comment: Bord aoaiaf=383-856 mg/dL Higher Noiq=946 mg/dL or greater Friedwald Equation for LDL-C Performed By: #### L 501.9985, L501.5200, L100.0500, L500.4050, L500.4100, L506.1001, L502.0250 #### [facility] [address] [place], [address] Cholesterol in VLDL [Mass/Vol] 34 mg/dL Normal 5-40 [facility] Comment on above: Performed By: #### L 501.9985, L501.5200, L100.0500, L500.4050, L500.4100, L506.1001, L502.0250 #### [facility] [address] [place], [address] Triglyceride [Mass/Vol] 168 mg/dL Normal [facility] Comment on above: Result Comment: The drugs N-Acetylcysteine and Metamizole may falsely depress this assay. Normal range: <150 mg/dL Borderline High: 150-199 mg/dL High: 200-499 mg/dL Very High: >500 mg/dL Performed By: #### L 501.9985, L501.5200, L100.0500, L500.4050, L500.4100, L506.1001, L502.0250 #### [facility] [address] [place], [address] Magnesiumon 04-05-2025 Magnesium [Mass/Vol] 2.0 mg/dL Normal 1.5-2.[address] [facility] Comment on above: Performed By: #### L 501.9985, L501.5200, L100.0500, L500.4050, L500.4100, L506.1001, L502.0250 #### [facility] [address] [place], [address] Microalb:Creat Ratio,Random URon 04-05-2025 Creatinine [Mass/Vol] 36.30 mg/dL Normal 28.00-217.00 [facility] Comment on above: Performed By: #### L 501.9985, L501.5200, L100.0500, L500.4050, L500.4100, L506.1001, L502.0250 #### [facility] [address] [place], [address] MALB:CREAT 156.2 mg/g CRE High <30 mg/g CRE [facility] Comment on above: Performed By: #### L 501.9985, L501.5200, L100.0500, L500.4050, L500.4100, L506.1001, L502.0250 #### [facility] [address] [place], [address] MICROALBUMIN,UR 56.7 mg/L Normal <20 mg/L [facility] Comment on above: Performed By: #### L 501.9985, L501.5200, L100.0500, L500.4050, L500.4100, L506.1001, L502.0250 #### [facility] [address] [place], [address] Vitamin D,25 Hydroxyon 04-05 Vitamin D 25-OH 32.9 ng/mL Normal 30-100 [facility] Comment on above: Result Comment: Rajni min D Status Deficiency: <20 ng/mL (50nmol/L) Insufficiency: 20-30 ng/mL (50-75 nmol/L) Sufficiency: 30-100 ng/mL (75-250 nmol/L) Toxicity: >100 ng/mL (>250 nmol/L) Performed By: #### L 501.9985, L501.5200, L100.0500, L500.4050, L500.4100, L506.1001, L502.0250 #### [facility] [address] [place], [address] CNOVon 10-01-2024 CNOV Office Visit (INTMWS ) OMKAR MELLO ([id number]) 1950 F Date Time Provider Department 10/01/24 10:00 AM KATHIA TAVARES INTMWS During your visit today, we recorded the following information about you: Pulse Respiration Blood pressure Weight 51/minute 14/minute 128/70 102.2 kg Kathia Tavares MD 10/01/2024 11:21 AM Signed This note was created using NoteWriter. Subjective Patient presents with: 6 month f/up Omkar is a 73-year-old female with a history of HTN, DM, HLD, and SHALOM, presenting for a follow-up visit. Omkar reports a weight gain of 1 lb over the winter, but notes an overall weight loss from 229 lbs to 225 lbs since her last appointment. She attributes her weight gain to increased ice cream consumption, particularly at night, and mentions that she tries to practice portion control and make healthier food choices. She denies any issues with her current medications, which include atenolol, metformin, pantoprazole, paroxetine, Pravachol, Topamax, and valsartan. She reports difficulty maintaining adequate hydration, particularly on days when she is not exercising. She notes that she drinks approximately 16 oz of water on days when she exercises, which is usually at 0730, but struggles to drink enough water on other days. She mentions that she tries to stop drinking water by 1900 to avoid nocturia. She also reports that she has been taking vitamin D 5,000 IU daily more regularly since the winter, along with magnesium, zinc, and Super B-complex. She denies any muscle or joint aches. She uses a CPAP machine routinely and reports benefiting from its use. Recent lab results show a creatinine level of 1.48 mg/dL, glucose level of 115 mg/dL, total cholesterol of 119 mg/dL, triglycerides of 173 mg/dL, HDL of 53 mg/dL, LDL of 105 mg/dL, and vitamin D level of 33.6 ng/mL. Her A1c is 6.1%. She denies any symptoms of high blood pressure and has not been regularly checking her blood pressure at home. PAST MEDICAL HISTORY Diagnosis Date Colorectal polyp detected on colonoscopy 2014 Dr. Mayo Esophageal reflux Esophageal reflux 08/23/2005 Irritable bowel syndrome 08/23/2005 Malignant neoplasm of breast (female), unspecified site s/p left breast mastectomy w/ recontruction Migraine without aura, without mention of intractable migraine without mention of status migrainosus Obesity, unspecified 08/23/2005 SHALOM on CPAP 2007 Osteoporosis Reclast yearly (May). Bone density improved to osteopenia range in 2006. Last infusion 2016; BMD last checked 2014 at [facility] Osteoporosis, unspecified Bone density improved to osteopenia range in 2006 Other and unspecified hyperlipidemia Unspecified essential hypertension Current Outpatient Medications Medication Sig Benzonatate (TESSALON) 200 mg capsule Take 1 capsule by mouth three times a day as needed. scopolamine (TRANSDERM-SCOP) patch 1.5 mg/72 hr (delivers 1 mg over 3 days) Apply first patch at least 4 hours prior to traveling. Apply every 3 days as needed during travel. ZINC ACETATE ORAL Take by mouth. CPAP CPAP supplies: Mask (per patient preference) optional chin strap/head gear (if indicated) , filters, tubing, humidifier and lifetime supplies. (G47.33) SHALOM (obstructive sleep apnea) VITAMIN B COMPLEX (SUPER B COMPLEX ORAL) Take 1 tablet by mouth once daily. Cholecalciferol, Vitamin D3, 5,000 unit cap Take 1 capsule by mouth once daily. magnesium oxide (MAG-OXIDE) 400 mg tablet Take 1 tablet by mouth twice daily. COMPOUNDED PRESCRIPTION nasal CPAP with a setting of 5cm with a heated humidity and medium comfort gel mask. Dx is obstructive sleep apnea. atenolol (TENORMIN) 25 mg tablet Take 1 tablet by mouth once daily. metFORMIN ER (GLUCOPHAGE XR) 500 mg 24 hr tablet Take 1 tablet by mouth daily with breakfast. pantoprazole DR (PROTONIX) 20 mg tablet Take 1 tablet by mouth daily before breakfast. Take on empty stomach, 1/2 hr before meal. PARoxetine (PAXIL) 10 mg tablet Take 1 tablet by mouth once daily. pravastatin (PRAVACHOL) 20 mg tablet Take 1 tablet by mouth once daily. topiramate (TOPAMAX) 50 mg tablet Take 1 tablet by mouth daily at bedtime. valsartan (DIOVAN) 80 mg tablet Take 1 tablet by mouth once daily. oxyCODONE-acetaminophe n (PERCOCET) 5-325 mg tablet Take 1 tablet by mouth two times a day as needed for pain for up to 7 days. No current facility-administered medications for this visit. Review of Systems Objective BP 128/70 Pulse (!) 51 Resp 14 Wt 102.2 kg (225 lb 5 oz) SpO2 94% BMI 38.37 kg/m? Last 5 Encounter Wt Readings: Date: Wt: 10/01/2024 102.2 kg (225 lb 5 oz) 03/26/2024 104.1 kg (229 lb 8 oz) 04/12/2023 98 kg (216 lb) 09/28/2022 109.3 kg (241 lb) 06/14/2022 106.1 kg (234 lb) No waist measurement recorded Estimated body mass index is 38.37 kg/m? as calculated from the followi (more content not included)... Normal [facility] Anion gap in Serum or Plasma Ordered By: Kathia Tavares on 09-27-2024 Anion gap [Moles/Vol] 12 mmol/L 5-15 [facility] BUN/creatinine ratioOrdered By: Kathia Tavares on 09-27-2024 Urea nitrogen/Creatinine [Mass ratio] 15.6 mg/mg 10-20 [facility] Bilirubin, totalOrdered By: Kathia Tavares on 09-27-2024 Bilirubin [Mass/Vol] 0.48 mg/dL 0.00-1.[address] [facility] CBC-Complete Blood Cnt No Di ffon 09-27-2024 Erythrocyte distribution width (RBC) [Ratio] 13.6 % Normal 11.6-14.6 [facility] Comment on above: Performed By: #### L 501.5200, L100.0500, L501.9985, L506.1001, L500.4100, L500.4050 #### [facility] [address] [place], [address] Hematocrit (Bld) [Volume fraction] 37.2 % Normal 37-47 [facility] Comment on above: Performed By: #### L 501.5200, L100.0500, L501.9985, L506.1001, L500.4100, L500.4050 #### [facility] [address] [place], [address] Hemoglobin (Bld) [Mass/Vol] 12.2 g/dL Normal 12.0-15.0 [facility] Comment on above: Performed By: #### L 501.5200, L100.0500, L501.9985, L506.1001, L500.4100, L500.4050 #### [facility] [address] [place], [address] MCH (RBC) [Entitic mass] 30.0 pg Normal 27.0-32.0 [facility] Comment on above: Performed By: #### L 501.5200, L100.0500, L501.9985, L506.1001, L500.4100, L500.4050 #### [facility] [address] [place], [address] MCHC (RBC) [Mass/Vol] 32.8 g/dL Normal 32-36 [facility] Comment on above: Performed By: #### L 501.5200, L100.0500, L501.9985, L506.1001, L500.4100, L500.4050 #### [facility] [address] [place], [address] MCV (RBC) [Entitic vol] 91.4 fL Normal 81-99 [facility] Comment on above: Performed By: #### L 501.5200, L100.0500, L501.9985, L506.1001, L500.4100, L500.4050 #### [facility] [address] [place], [address] Platelet mean volume (Bld) [Entitic vol] 10.0 fL Normal 6.2-12.0 [facility] Comment on above: Performed By: #### L 501.5200, L100.0500, L501.9985, L506.1001, L500.4100, L500.4050 #### [facility] [address] [place], [address] Platelets (Bld) [#/Vol] 272 10*3/uL Normal 150-450 [facility] Comment on above: Performed By: #### L 501.5200, L100.0500, L501.9985, L506.1001, L500.4100, L500.4050 #### [facility] [address] [place], [address] RBC (Bld) [#/Vol] 4.07 10*6/uL Low 4.2-5.4 [facility] Comment on above: Performed By: #### L 501.5200, L100.0500, L501.9985, L506.1001, L500.4100, L500.4050 #### [facility] [address] [place], [address] RDW SD 46.0 fl High 35.1-43.9 [facility] Comment on above: Performed By: #### L 501.5200, L100.0500, L501.9985, L506.1001, L500.4100, L500.4050 #### [facility] [address] [place], [place], [id number] WBC (Bld) [#/Vol] 7.6 10*3/uL Normal 4.4-11.0 [facility] Comment on above: Performed By: #### L 501.5200, L100.0500, L501.9985, L506.1001, L500.4100, L500.4050 #### [facility] [address] [place], [place], [id number] Calculated very low density lipoprotein (VLDL) cholesterol measurementOrdered By: Kathia Tavares on 09-27-2024 VLDL Cholesterol 35 mg/dL 5-40 [facility] Carbon dioxide, total [Moles /volume] in Central venous bloodOrdered By: Kathia Tavares on 09-27-2024 CO2 [Moles/Vol] 18.7 mmol/L Low 21.0-32.0 [facility] Chloride assayOrdered By: Jane Tavares on 09-27-2024 Chloride [Moles/Vol] 112 mmol/L High 98-[address] [facility] Comprehensive Metabolic Prof ilon 09-27-2024 Albumin [Mass/Vol] 4.1 g/dL Normal 3.4-4.8 [facility] Comment on above: Performed By: #### L 501.9985, L501.5200, L100.0500, L500.4050, L500.4100, L506.1001, L502.0250 #### [facility] [address] [place], [place], [id number] Albumin/Globulin [Mass ratio] 1.3 {ratio} Normal 0.9-2.4 [facility] Comment on above: Performed By: #### L 501.9985, L501.5200, L100.0500, L500.4050, L500.4100, L506.1001, L502.0250 #### [facility] [address] [place], [address] ALK PHOS 50 U/L Normal 35-104 [facility] Comment on above: Performed By: #### L 501.9985, L501.5200, L100.0500, L500.4050, L500.4100, L506.1001, L502.0250 #### [facility] [address] [place], [address] ALT [Catalytic activity/Vol] 13 U/L Normal <=34 [facility] Comment on above: Performed By: #### L 501.9985, L501.5200, L100.0500, L500.4050, L500.4100, L506.1001, L502.0250 #### [facility] [address] [place], [address] AST [Catalytic activity/Vol] 17 U/L Normal <=31 [facility] Comment on above: Performed By: #### L 501.9985, L501.5200, L100.0500, L500.4050, L500.4100, L506.1001, L502.0250 #### [facility] [address] [place], [place], [id number] (225) Bilirubin [Mass/Vol] 0.48 mg/dL Normal 0.00-1.[address] [facility] Comment on above: Performed By: #### L 501.9985, L501.5200, L100.0500, L500.4050, L500.4100, L506.1001, L502.0250 #### [facility] [address] [place], [address] BUN/CRE 15.6 RATIO Normal 10-20 [facility] Comment on above: Performed By: #### L 501.9985, L501.5200, L100.0500, L500.4050, L500.4100, L506.1001, L502.0250 #### [facility] [address] [place], [address] Calcium [Mass/Vol] 9.5 mg/dL Normal 7.6-11.0 [facility] Comment on above: Performed By: #### L 501.9985, L501.5200, L100.0500, L500.4050, L500.4100, L506.1001, L502.0250 #### [facility] [address] [place], [address] Chloride [Moles/Vol] 112 mmol/L High 98-[address] [facility] Comment on above: Performed By: #### L 501.9985, L501.5200, L100.0500, L500.4050, L500.4100, L506.1001, L502.0250 #### [facility] [address] [place], [address] CO2 [Moles/Vol] 18.7 mmol/L Low 21.0-32.0 [facility] Comment on above: Performed By: #### L 501.9985, L501.5200, L100.0500, L500.4050, L500.4100, L506.1001, L502.0250 #### [facility] [address] [place], [address] Creatinine [Mass/Vol] 1.48 mg/dL High 0.70-1.20 [facility] Comment on above: Performed By: #### L 501.9985, L501.5200, L100.0500, L500.4050, L500.4100, L506.1001, L502.0250 #### [facility] [address] [place], [address] GAP 12 Normal 5-15 [facility] Comment on above: Performed By: #### L 501.9985, L501.5200, L100.0500, L500.4050, L500.4100, L506.1001, L502.0250 #### [facility] [address] [place], [address] GFR/1.73 sq M.predicted among non-blacks MDRD (S/P/Bld) [Vol rate/Area] 38 mL/min/{1.73_m2} Low >60 [facility] Comment on above: Result Comment: mL/m in/1.73m2 CKD-EPI Creatinine Equation (2020) Performed By: #### L 501.9985, L501.5200, L100.0500, L500.4050, L500.4100, L506.1001, L502.0250 #### [facility] [address] [place], [address] Globulin (S) [Mass/Vol] 3.1 g/dL Normal 2.2-4.[address] [facility] Comment on above: Performed By: #### L 501.9985, L501.5200, L100.0500, L500.4050, L500.4100, L506.1001, L502.0250 #### [facility] [address] [place], [address] Glucose [Mass/Vol] 115 mg/dL High 70-99 [facility] Comment on above: Performed By: #### L 501.9985, L501.5200, L100.0500, L500.4050, L500.4100, L506.1001, L502.0250 #### [facility] [address] [place], [address] Potassium [Moles/Vol] 3.8 mmol/L Normal 3.3-5.1 [facility] Comment on above: Performed By: #### L 501.9985, L501.5200, L100.0500, L500.4050, L500.4100, L506.1001, L502.0250 #### [facility] [address] [place], [address] Sodium [Moles/Vol] 142 mmol/L Normal 133-145 [facility] Comment on above: Performed By: #### L 501.9985, L501.5200, L100.0500, L500.4050, L500.4100, L506.1001, L502.0250 #### [facility] [address] [place], [address] T PROT 7.2 g/dL Normal 5.9-8.4 [facility] Comment on above: Performed By: #### L 501.9985, L501.5200, L100.0500, L500.4050, L500.4100, L506.1001, L502.0250 #### [facility] [address] [place], [address] Urea nitrogen [Mass/Vol] 23 mg/dL High 4-19 [facility] Comment on above: Performed By: #### L 501.9985, L501.5200, L100.0500, L500.4050, L500.4100, L506.1001, L502.0250 #### [facility] [address] [place], [address] Erythrocyte distribution wid th (RBC) [Ratio]Ordered By: Kathia Tavares on 09-27-2024 Erythrocyte distribution width (RBC) [Entitic vol] 46.0 fL High 35.1-43.9 [facility] Erythrocyte distribution wid th ratioOrdered By: Kathia Tavares on 09-27-2024 Erythrocyte distribution width (RBC) [Ratio] 13.6 % 11.6-14.6 [facility] GFR/1.73 sq M.predicted selma g non-blacks MDRD (S/P/Bld) [Vol rate/Area]Ordered By: Kathia Tavares on 09-27-2024 Estimated GFR (MDRD) Non-Af Amer 38 Low >60 [facility] Comment on above: mL/min/1.73m2 CKD-EP I Creatinine Equation (2020) Hematocrit Auto (Bld) [Volum e fraction]Ordered By: Kathia Tavares on 09-27-2024 Hematocrit (Bld) [Volume fraction] 37.2 % 37-47 [facility] Hemoglobin A1con 09-27-2024 HbA1c (Bld) [Mass fraction] 6.1 % Normal <=5.6 [facility] Comment on above: Performed By: #### L 501.5200, L100.0500, L501.9985, L506.1001, L500.4100, L500.4050 #### [facility] [address] [place], [place], [id number] Hemoglobin A1c percentageOrd ered By: Kathia Tavares on 09-27-2024 HbA1c (Bld) [Mass fraction] 6.1 % >5.7 [facility] Hemoglobin measurementOrdere d By: Kathia Tavares on 09-27-2024 Hemoglobin (Bld) [Mass/Vol] 12.2 g/dL 12.0-15.0 [facility] LDL calc ser/plasOrdered By: Kathia Tavares on 09-27-2024 LDL Cholesterol, Calculated 105 mg/dL [facility] Comment on above: Jffvvmqhov=973-403 m g/dL & Higher Gref=939 mg/dL or greater Laboratory - Chemistry and C hemistry - challengeOrdered By: Kathia Tavares on 09-27-2024 AST [Catalytic activity/Vol] 17 U/L <32 [facility] Lipid Profileon 09-27-2024 CHOL:HDL 3.64 Normal [facility] Comment on above: Performed By: #### L 501.9985, L501.5200, L100.0500, L500.4050, L500.4100, L506.1001, L502.0250 #### [facility] [address] [place], [address] Cholesterol [Mass/Vol] 192 mg/dL Normal <=200 [facility] Comment on above: Result Comment: Chol esterol level, Desirable <200 mg/dL Borderline high cholesterol 200-239 mg/dL High cholesterol >=240 mg/dL Recommendations of the NCEP Adult Treatment Panel for the following risk-cutoff thresholds for the [place] population. Performed By: #### L 501.9985, L501.5200, L100.0500, L500.4050, L500.4100, L506.1001, L502.0250 #### [facility] [address] [place], [address] Cholesterol in HDL [Mass/Vol] 53 mg/dL Normal [facility] Comment on above: Result Comment: Frida onal Cholesterol Education Program (NCEP) guidelines: <40 mg/dL: Low HDL-cholesterol (major risk factor for CHD) >= 60 mg/dL: High HDL-cholesterol (negative risk factor for CHD) HDL-cholesterol is affected by a number of factors, e.g. smoking, exercise, hormones, sex and age. Performed By: #### L 501.9985, L501.5200, L100.0500, L500.4050, L500.4100, L506.1001, L502.0250 #### [facility] [address] [place], [address] Cholesterol in LDL [Mass/Vol] 105 mg/dL Normal [facility] Comment on above: Result Comment: Bord mcvvqa=019-077 mg/dL Higher Zuhy=931 mg/dL or greater Performed By: #### L 501.9985, L501.5200, L100.0500, L500.4050, L500.4100, L506.1001, L502.0250 #### [facility] [address] [place], [address] Cholesterol in VLDL [Mass/Vol] 35 mg/dL Normal 5-40 [facility] Comment on above: Performed By: #### L 501.9985, L501.5200, L100.0500, L500.4050, L500.4100, L506.1001, L502.0250 #### [facility] [address] [place], [place], [id number] (501) Triglyceride [Mass/Vol] 173 mg/dL Normal [facility] Comment on above: Result Comment: The drugs N-Acetylcysteine and Metamizole may falsely depress this assay. Normal range: <150 mg/dL Borderline High: 150-199 mg/dL High: 200-499 mg/dL Very High: >500 mg/dL Performed By: #### L 501.9985, L501.5200, L100.0500, L500.4050, L500.4100, L506.1001, L502.0250 #### [facility] [address] [place], [place], [id number] (093) MCV (mean corpuscular volume ) determinationOrdered By: Kathia Tavares on 09-27-2024 MCV (RBC) [Entitic vol] 91.4 fL 81-99 [facility] Magnesiumon 09-27-2024 Magnesium [Mass/Vol] 1.8 mg/dL Normal 1.5-2.[address] [facility] Comment on above: Performed By: #### L 501.9985, L501.5200, L100.0500, L500.4050, L500.4100, L506.1001, L502.0250 #### [facility] [address] [place], [place], [id number] (071) Magnesium (Unsp spec) [Mass/ Vol]Ordered By: Kathia Tavares on 09-27-2024 Magnesium [Mass/Vol] 1.8 mg/dL 1.5-2.[address] [facility] Mean corpuscular hemoglobin (MCH) determinationOrdered By: Kathia Tavares on 09-27-2024 MCH (RBC) [Entitic mass] 30.0 pg 27.0-32.0 [facility] Mean corpuscular hemoglobin concentration (MCHC) determinationOrdered By: Kathia Tavares on 09-27-2024 MCHC (RBC) [Mass/Vol] 32.8 g/dL 32-36 [facility] Mean platelet volume determi nationOrdered By: Kathia Tavares on 09-27-2024 Platelet mean volume (Bld) [Entitic vol] 10.0 fL 6.2-12.0 [facility] Platelet countOrdered By: Jane Tavares on 09-27-2024 Platelets (Bld) [#/Vol] 272 10*3/uL 150-450 [facility] Potassium (Unsp spec) [Mass/ Vol]Ordered By: Kathia Tavares on 09-27-2024 Potassium [Moles/Vol] 3.8 mmol/L 3.3-5.1 [facility] RBC Auto (Bld) [#/Vol]Ordere d By: Kathia Tavares on 09-27-2024 RBC (Bld) [#/Vol] 4.07 10*6/uL Low 4.2-5.4 [facility] Screening total cholesterol/ high density lipoprotein (HDL) cholesterol ratioOrdered By: Kathia Tavares on 09-27-2024 Cholesterol.total/Choles terol in HDL [Mass ratio] 3.64 {ratio} [facility] Serum creatinine measurement (mass/volume)Ordered By: Kathia Tavares on 09-27-2024 Creatinine [Mass/Vol] 1.48 mg/dL High 0.70-1.20 [facility] Serum globulin measurementOr dered By: Kathia Tavares on 09-27-2024 Globulin (S) [Mass/Vol] 3.1 g/dL 2.2-4.2 [facility] Serum glucose measurement (m ass/volume)Ordered By: Kathia Tavares on 09-27-2024 Glucose [Mass/Vol] 115 mg/dL High 70-99 [facility] Serum or plasma alanine valdez otransferase (ALT) measurementOrdered By: Kathia Tavares on 09-27-2024 ALT [Catalytic activity/Vol] 13 U/L <35 [facility] Serum or plasma albumin marleni urement (mass/volume)Ordered By: Kathia Tavares on 09-27-2024 Albumin [Mass/Vol] 4.1 g/dL 3.4-4.8 [facility] Serum or plasma albumin/glob ulin mass ratioOrdered By: Kathia Tavares on 09-27-2024 Albumin/Globulin [Mass ratio] 1.3 {ratio} 0.9-2.4 [facility] Serum or plasma alkaline kamlesh sphatase measurementOrdered By: Kathia Tavares on 09-27-2024 ALP [Catalytic activity/Vol] 50 U/L 35-104 [facility] Serum or plasma calcium marleni urement (mass/volume)Ordered By: Kathia Tavares on 09-27-2024 Calcium [Mass/Vol] 9.5 mg/dL 7.6-11.0 [facility] Serum or plasma cholesterol in HDL measurement (mass/volume)Ordered By: Kathia Tavares on 09-27-2024 Cholesterol in HDL [Mass/Vol] 53 mg/dL >40 [facility] Comment on above: National Cholesterol Education Program (NCEP) guidelines:<40 mg/dL: Low HDL-cholesterol (major risk factor for CHD)>= 60 mg/dL: High HDL-cholesterol (negative risk factor for CHD)HDL-cholesterol is affected by a number of factors, e.g. smoking, exercise, hormones, sex and age. Serum or plasma cholesterol measurement (mass/volume)Ordered By: Kathia Tavares on 09-27-2024 Cholesterol [Mass/Vol] 192 mg/dL <201 [facility] Comment on above: Cholesterol level, D esirable <200 mg/dLBorderline high cholesterol 200-239 mg/dLHigh cholesterol >=240 mg/dLRecommendations of the NCEP Adult Treatment Panel for the following risk-cutoff thresholds for the [place] population. Serum or plasma urea nitroge n measurement (mass/volume)Ordered By: Kathia Tavares on 09-27-2024 Urea nitrogen [Mass/Vol] 23 mg/dL High 4-19 [facility] Sodium levelOrdered By: Kathia Tavares 09-27-2024 Sodium [Moles/Vol] 142 mmol/L 133-145 [facility] Total proteinOrdered By: Swathi Tavares on 09-27-2024 Protein [Mass/Vol] 7.2 g/dL 5.9-8.4 [facility] Triglycerides measurementOrd ered By: Kathia Tavares on 09-27-2024 Triglyceride [Mass/Vol] 173 mg/dL <199 [facility] Comment on above: The drugs N-Acetylcy steine and Metamizole may falsely depress this assay. Normal range: <150 mg/dLBorderline High: 150-199 mg/dLHigh: 200-499 mg/dLVery High: >500 mg/dL Vitamin D, 25-hydroxyOrdered By: Kathia Tavares on 09-27-2024 Vitamin D 25-Hydroxy 33.6 ng/mL 30-[address] [facility] Comment on above: Vitamin D StatusDefi ciency: <20 ng/mL (50nmol/L)Insufficiency: 20-30 ng/mL (50-75 nmol/L)Sufficiency: 30-100 ng/mL (75-250 nmol/L)Toxicity: >100 ng/mL (>250 nmol/L) Vitamin D,25 Hydroxyon 09-27 Vitamin D 25-OH 33.6 ng/mL Normal 30-100 [facility] Comment on above: Result Comment: Rajni min D Status Deficiency: <20 ng/mL (50nmol/L) Insufficiency: 20-30 ng/mL (50-75 nmol/L) Sufficiency: 30-100 ng/mL (75-250 nmol/L) Toxicity: >100 ng/mL (>250 nmol/L) Performed By: #### L 501.5200, L100.0500, L501.9985, L506.1001, L500.4100, L500.4050 #### [facility] [address] [place], [address] White blood cell (WBC) count Ordered By: Kathia Tavares on 09-27-2024 WBC (Bld) [#/Vol] 7.6 10*3/uL 4.4-11.0 [facility] PAP I-G w/rfx hrHPV-Aptimaon 06-20-2024 ADEQ Comment Normal . [facility] Comment on above: Order Comment: Speci men Comment: [id number] Comment: Source.............Cervix;EndocervixSpecimen Comment: Other..............Post MenopausalSpecimen Comment: No. of containers..01 ThinPrep Vial Result Comment: Sati sfactory for evaluation. Endocervical and/or squamous metaplastic cells (endocervical component) are present. Performed By: #### L 501.9985, L501.5200, L100.0500, L500.4050, L500.4100, L506.1001, L502.0250 #### [facility] [address] [place], [place], [address] COMM . Normal . [facility] Comment on above: Order Comment: Speci men Comment: [id number] Comment: Source.............Cervix;EndocervixSpecimen Comment: Other..............Post MenopausalSpecimen Comment: No. of containers..01 ThinPrep Vial Performed By: #### L 501.9985, L501.5200, L100.0500, L500.4050, L500.4100, L506.1001, L502.0250 #### [facility] [address] [place], [place], [id number] COMMENT Comment Normal . [facility] Comment on above: Order Comment: Speci men Comment: [id number] Comment: Source.............Cervix;EndocervixSpecimen Comment: Other..............Post MenopausalSpecimen Comment: No. of containers..01 ThinPrep Vial Result Comment: This liquid based ThinPrep(R) pap test was screened with the use of an image guided system. Performed By: #### L 501.9985, L501.5200, L100.0500, L500.4050, L500.4100, L506.1001, L502.0250 #### [facility] [address] [facility], [place], [id number] DIAG Comment Normal . [facility] Comment on above: Order Comment: Speci men Comment: [id number] Comment: Source.............Cervix;EndocervixSpecimen Comment: Other..............Post MenopausalSpecimen Comment: No. of containers..01 ThinPrep Vial Result Comment: NEGA TIVE FOR INTRAEPITHELIAL LESION OR MALIGNANCY. Performed By: #### L 501.9985, L501.5200, L100.0500, L500.4050, L500.4100, L506.1001, L502.0250 #### [facility] [address] [place], [place], [id number] HPV RFLX Comment Normal . [facility] Comment on above: Order Comment: Speci men Comment: [id number] Comment: Source.............Cervix;EndocervixSpecimen Comment: Other..............Post MenopausalSpecimen Comment: No. of containers..01 ThinPrep Vial Result Comment: The HPV DNA reflex criteria were not met with this specimen result therefore, no HPV testing was performed. Performed at: [address] [id number] [employer]ugboat Pilot: Genoveva Gold MD, Phone: [phone] Performed By: #### L 501.9985, L501.5200, L100.0500, L500.4050, L500.4100, L506.1001, L502.0250 #### [facility] [address] [place], [place], [id number] PAPSMR Comment Normal . [facility] Comment on above: Order Comment: Speci men Comment: [id number] Comment: Source.............Cervix;EndocervixSpecimen Comment: Other..............Post MenopausalSpecimen Comment: No. of containers..01 ThinPrep Vial Result Comment: The Pap smear is a screening test designed to aid in the detection of premalignant and malignant conditions of the uterine cervix. It is not a diagnostic procedure and should not be used as the sole means of detecting cervical cancer. Both false-positive and false-negative reports do occur. Performed By: #### L 501.9985, L501.5200, L100.0500, L500.4050, L500.4100, L506.1001, L502.0250 #### [facility] [address] [place], [address] PERFORM Comment Normal . [facility] Comment on above: Order Comment: Speci men Comment: [id number] Comment: Source.............Cervix;EndocervixSpecimen Comment: Other..............Post MenopausalSpecimen Comment: No. of containers..01 ThinPrep Vial Result Comment: Caitlyn Truong, National Secretary (ASCP) Performed By: #### L 501.9985, L501.5200, L100.0500, L500.4050, L500.4100, L506.1001, L502.0250 #### [facility] [address] [place], [address] Log Chipper Cyto stain Nom (C vx/Vag) [ID]Ordered By: Nancy Johnson on 06-11-2024 Pap Smear Performed By Comment . [facility] Comment on above: Caitlyn Truong Cytot echnologist (ASCP) Cytology report Cyto stain D oc (Cvx/Vag)Ordered By: Nancy Johnson on 06-11-2024 Thin Prep Pap Smear Comment . [facility] Comment on above: The Pap smear is a s creening test designed to aid in thedetection of premalignant and malignant conditions of theuterine cervix. It is not a diagnostic procedure andshould not be used as the sole means of detecting cervicalcancer. Both false-positive and false-negative reports dooccur. Image-guided ThinPrep PapOrd ered By: Nancy Johnson on 06-11-2024 Pap Smear Note Comment . [facility] Comment on above: This liquid based Th inPrep(R) pap test was screened withthe use of an image guided system. Image-guided liquid-based Pa pOrdered By: Nancy Johnson on 06-11-2024 Pap Smear Diagnosis Comment . [facility] Comment on above: NEGATIVE FOR INTRAEP ITHELIAL LESION OR MALIGNANCY. Image-guided liquid-based ce rvical Pap w high-risk HPV+reflex to HPV 16+18Ordered By: Nancy Johnson on 06-11-2024 Human Papillomavirus Screen Comment . [facility] Comment on above: The HPV DNA reflex c riteria were not met with this specimenresult therefore, no HPV testing was performed.Performed at: [address] [id number] Director: Genoveva Gold MD, Phone: [phone] High Risk Ob Office Visit Reporton 06-11-2024 High Risk Ob Office Visit Report [facility] [address], [address] [place] [address] OFFICE VISIT Date of Service: 06/11/24 MR#: [id number] Acct: [id number] Name: OMKAR MELLO Rep #: [id number] : 1950 Provider: Dr. 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??Type magnesium oxide 400 mg (241.3 mg 400 mg PO DAILY 01/17/14 06/11/24 History magnesium) tablet omeprazole 40 mg capsule,delayed 20 mg PO DAILY 01/17/14 06/11/24 History release topiramate 50 mg tablet 50 mg PO QHS 01/17/14 06/11/24 History pravastatin 20 mg tablet 20 mg PO QHS 05/28/15 06/11/24 History paroxetine HCl 10 mg tablet 10 mg PO QHS 05/31/19 06/11/24 History zinc 50 mg tablet 50 mg PO DAILY 05/05/21 06/11/24 History atenolol 25 mg tablet 25 mg PO DAILY 06/02/23 06/11/24 History metformin 500 mg tablet 500 mg PO DAILY 06/06/23 06/11/24 History cholecalciferol (vitamin D3) 125 125 mcg PO QDAY 06/11/24 06/11/24 History mcg (5,000 unit) capsule valsartan 40 mg tablet (Diovan) 80 mg PO DAILY 06/11/24 06/11/24 History Is last menstrual period known: No Post menopausal: Yes Patient : No : No [facility] Medical History history of extracorpereal shockwave lithotripsy History Tubal Cancer Hypertension Surgical History H/O breast reconstruction H/O bilateral salpingo-oophorectomy History of D C History of cholecystectomy History of left mastectomy Social History number of children: 1 current occupational status: retired Smoking Status: Never smoker alcohol intake: never substance use type: does not use caffeine: Yes what type of physical activity do you participate in: none seatbelt use: always do you feel safe at home: Yes additional social history: Don Retired History 3 Elective abortions 1 Hx Para 1 Spontaneous abortions Hx # Term Pregnancies Ectopic pregnancies 1 Hx # Pregnancies Multiple births # of living children 1 Past Pregnancies Del. Date Name GA/Weeks Outcome Route Bth Weight Infant Gen Labor Lgth Anesthesia Del [facility] Provider FOB Unknown Lidia 1975 HPI Encounter for routine gynecological examination Details: OMKAR MELLO is a 73 year old who presents for annual exam. Leaving for [place] monday. (snowbirds there every year) Last PAP: 2022 History of abnormal PAP: no Last mammogram: 04/18 History of abnormal mammogram:yes, h/o breast cancer Dexa: 2023 Colon cancer screening: up to date Other preventative health care screenings: PCP Dr. Tavares does screening labs Female Reproductive History Questions: metorrhagia: No, sexually active: Yes, dyspareunia: No and PCB: No Menopausal Symptoms: No hot flashes, No night sweats, No weight change, No mood changes, No difficulty concentrating, No sleep problems and No change in libido ROS Const Constitutional: Reports as per HPI; Denies fatigue, increased appetite, poor appetite, night sweats, weight gain or weight loss Cardio Card: Denies chest pain Resp Resp: Denies cough or dyspnea GI GI: Reports as per HPI; Denies abdominal pain, bloating, constipation, nausea or vomiting : Reports as per HPI and other; Denies difficulty voiding, dysuria, hematuria, hot flashes, nipple discharge, pelvic pain, prolapse symptoms, urinary frequency, urinary incontinence, urinary urgency, vaginal discharge, vaginal dryness, vaginal odor or vaginal pruritus Skin Skin/Breast: Denies changing lesions, breast mass, breast pain, breast skin changes or nipple discharge Psych Psych: Denies anxiety, change in libido, depression or difficulty concentrating Exam Const General: cooperative, healthy appearing, comfortable, no acute distress, well developed and well groomed HENMT Head: normal to inspection and normocep (more content not included)... Normal [facility] Service comment (Unsp spec) [Interp]Ordered By: Nancy Johnson on 06-11-2024 Pap Smear Comment (3) . . [facility] Elisha 05-06-2024 CNPN Telephone (INTMWS) OMKAR MELLO ([id number]) 1950 F Date Time Provider Department 05/06/24 KATHIA TAVARES INTMWS During your visit today, we recorded the following information about you: Gudelia Chew LPN 05/06/2024 4:04 PM Addendum Please review bone density from [facility]. View External Imaging - Bone Density [ID [id number]] Aysha Saxena APRN.AIR QUALITY CHEMIST 05/10/2024 4:24 PM Signed Please let he know that her BMD showed osteopenia. Kaushal Khan, CELSO 05/10/2024 4:43 PM Signed Called and notified pt. Pt states she gets Reclast infusions every May. In looking at report, pt notified that since last exam, there has been improvement. Allergies As of Date: 05/06/2024 Noted Allergy Reaction CIPROFLOXACIN 11/06/2010 2 - Rash Comments: Head to toe rash. Did tolerate Levaquin 01/2014 for pyelonephritis CODEINE 09/17/2007 5 - Intolerance Comments: nightmares OPIOIDS-MEPERIDINE AND RELATED 04/21/2004 10 - Anaphylaxis PENICILLINS 04/21/2004 4 - Hives SIMVASTATIN 10/20/2014 14 - Other: See Comments Comments: joint aches that resolved when stopped med TRIAMTERENE 06/10/2011 5 - Intolerance Comments: felt like passing out with this; tolerates HCTZ ZYRTEC (CETIRIZINE HCL) 01/12/2005 Comments: extreme headache Date Reviewed: 03/26/2024 Reviewed by: Anna Marie Verdugo LPN - Fully Assessed Reason for Visit: Orders [681] Results [95] Prescriptions as of 05/10/2024 - Benzonatate (TESSALON) 200 mg capsule Take 1 capsule by mouth three times a day as needed. - valsartan (DIOVAN) 80 mg tablet Take 1 tablet by mouth once daily. - atenolol (TENORMIN) 25 mg tablet Take 1 tablet by mouth once daily. - pravastatin (PRAVACHOL) 20 mg tablet Take 1 tablet by mouth once daily. - topiramate (TOPAMAX) 50 mg tablet Take 1 tablet by mouth daily at bedtime. - oxyCODONE-acetaminophe n (PERCOCET) 5-325 mg tablet Take 1 tablet by mouth two times a day as needed for pain for up to 7 days. - pantoprazole DR (PROTONIX) 20 mg tablet Take 1 tablet by mouth daily before breakfast. Take on empty stomach, 1/2 hr before meal. - metFORMIN ER (GLUCOPHAGE XR) 500 mg 24 hr tablet Take 1 tablet by mouth daily with breakfast. - PARoxetine (PAXIL) 10 mg tablet Take 1 tablet by mouth once daily. - scopolamine (TRANSDERM-SCOP) patch 1.5 mg/72 hr (delivers 1 mg over 3 days) Apply first patch at least 4 hours prior to traveling. Apply every 3 days as needed during travel. - ZINC ACETATE ORAL Take by mouth. - CPAP CPAP supplies: Mask (per patient preference) optional chin strap/head gear (if indicated) , filters, tubing, humidifier and lifetime supplies. (G47.33) SHALOM (obstructive sleep apnea) - VITAMIN B COMPLEX (SUPER B COMPLEX ORAL) Take 1 tablet by mouth once daily. - Cholecalciferol, Vitamin D3, 5,000 unit cap Take 1 capsule by mouth once daily. - magnesium oxide (MAG-OXIDE) 400 mg tablet Take 1 tablet by mouth twice daily. - COMPOUNDED PRESCRIPTION nasal CPAP with a setting of 5cm with a heated humidity and medium comfort gel mask. Dx is obstructive sleep apnea. Problem List As Of Date 05/06/2024 Noted Resolved Malignant neoplasm of breast (female), unspecif*04/30/2004 04/24/2016 Migraine without aura [G43.009] 02/21/2005 Hyperlipemia [E78.5] 02/21/2005 Essential hypertension [I10] 08/23/2005 IRRITABLE COLON [K58.9] 08/23/2005 ESOPHAGEAL REFLUX [K21.9] 08/23/2005 Osteoporosis [M81.0] 08/24/2005 WOUND (NOT COMPLICATED) - OPEN ABD WALL, ANTER*10/05/2005 04/24/2016 Lump or mass in breast [N63.0] 11/02/2005 04/24/2016 HISTORY OF CANCER OF BREAST [Z85.3] 11/02/2005 Calculus of gallbladder without cholecystitis w*10/31/2006 04/24/2016 HYPOPOTASSEMIA [E87.6] 09/17/2007 SCAR (CICATRIX) HYPERTROPHIC [L91.0] 11/01/2007 Vitamin D Deficiency [E55.9] 11/26/2009 Hypomagnesemia [E83.42] 03/12/2013 Personal history of breast cancer [Z85.3] 04/10/2013 Seborrheic keratoses [L82.1] 04/11/2016 Lobular breast cancer (HCC) [C50.919] 11/30/2016 CKD (chronic kidney disease) stage 3, GFR 30-59*04/18/2017 Class 2 severe obesity due to excess calories w*05/11/2017 05/15/2023 SHALOM on CPAP [G47.33] 06/26/2007 Encounter Status:Closed by KAUSHAL KHAN on 05/10/24 Normal [facility] Dexa Bone Density Studyon Dexa Bone Density Study [facility] Imaging Services [address] [place] [id number] Dexa Bone Density Study MR#: [id number] Acct: [id number] Name: OMKAR MELOL Rep #: [id number] : 1950 F 73 From: Kevin schuler MD PCP: Dr. Kathia Tavares MD Status: [facility] Study: Dexa Bone Density Study Date of Exam: 04/30/24 Exam# [id number] Ordering Dr: Kathia Tavares MD [id number] STUDY: DUAL ENERGY X-RAY ABSORPTIOMETRY / DXA REASON FOR EXAM: Female, 73 years old. [id number] TECHNIQUE: Bone Mineral Density (BMD) measurements of lumbar spine and bilateral hips were obtained. COMPARISON: Comparison is made with prior study April 05, 2022. FINDINGS: Lumbar Spine (L1-L4): g/cm2 (0.888) / T-score (-0.8) / Z-score (1.2) Findings are suggestive of normal bone density with a low fracture risk. Left Femur Total: g/cm2 (0.871) / T-score (-0.6) / Z-score (1.0) Left Femoral Neck: g/cm2 (0.695) / T-score (-1.4) / Z-score (0.5) Right Femur Total: g/cm2 (0.858) / T-score (-0.7) / Z-score (0.9) Right Femoral Neck: g/cm2 (0.707) / T-score (-1.3) / Z-score (0.7) The T-Scores on the most recent prior examination were: Lumbar Spine (L1-L4): There has been improvement of bone density since the previous examination. Left Femur Total: which represents an improvement of 3.9%. Right Femur Total: which represents an improvement of 1.2%. BD/Dexa Bone Density Study IMPRESSION: The patient is considered osteopenic as outlined below according to World [place] Organization (WHO) criteria with a low fracture risk. There has been improvement of bone density since the previous examination. Reference Information: The T-score is the number of standard deviations above or below the standard which is normal for young adults at their peak bone mineral density. The World Health Organization (WHO) interprets the T-scores as follows: Above -1 Normal bone density Between -1 and -2.5 Osteopenia Equal to / or below -2.5 Osteoporosis As a practical clinical guideline, osteopenia may be graded as follows: Mild -1 through -1.5 Moderate -1.6 through -2.0 Severe -2.1 through -2.4 The Z-score is the number of standard deviations above or below age-matched controls. A Z-score of less than -1.5 would be considered abnormal. References: 1. NIH Osteoporosis and Related Bone Diseases www osteo.org 2. International Society for Clinical Densitometry www iscd.org 3. National Osteoporosis Foundation www nof.org Electronically Signed: Kevin Guajardo MD at 15:09 EST , CC: Dr. Kathia Tavares MD Library Specialist: Signed Normal [facility] Basophil percentageOrdered B y: Kathia Tavares on 10-26-2023 Bilirubin [Mass/Vol] 0.60 mg/dL 0.20-1.[address] [facility] Comment on above: For patients on eltr ombopag therapy, use of Dimension Bode TBIL is not recommended. Chloride [Moles/Vol] 108 mmol/L 98-[address] [facility] Cholesterol [Mass/Vol] 202 mg/dL <200 [facility] Comment on above: <200 mg/dL Desirable 200-240 mg/dL Borderline >240 mg/dL High Risk Glucose [Mass/Vol] 116 mg/dL 74-106 [facility] Comment on above: Fasting Glucose resu lt from 100 to 125 mg/dL suggests IMPAIRED HOMEOSTASIS per A.D.A. criteria. Hemoglobin (Bld) [Mass/Vol] 12.5 g/dL 12.0-15.0 [facility] Potassium [Moles/Vol] 4.0 mmol/L 3.5-5.1 [facility] Protein [Mass/Vol] 7.4 g/dL 6.4-8.2 [facility] Sodium [Moles/Vol] 141 mmol/L 136-145 [facility] Triglyceride [Mass/Vol] 226 mg/dL <199 [facility] Comment on above: The drugs N-Acetylcy steine and Metamizole may falsely depress this assay.Serum Triglycerides Reference Interval Normal <150 mg/dL Borderline high 150 - 199 mg/dL High 200 - 499 mg/dL Very High > or = 500 mg/dL WBC (Bld) [#/Vol] 8.3 10*3/uL 4.4-11.0 [facility] Determination of erythrocyte mean corpuscular volume (MCV)Ordered By: Kathia Tavares on 10-26-2023 MCV (RBC) [Entitic vol] 90.3 fL 81-99 [facility] Erythrocyte distribution wid th ratioOrdered By: Kathia Tavares on 10-26-2023 Erythrocyte distribution width (RBC) [Ratio] 13.5 % 11.6-14.6 [facility] Erythrocyte distribution wid th standard deviationOrdered By: Kathia Tavares on 10-26-2023 Erythrocyte distribution width (RBC) [Entitic vol] 44.6 fL 35.1-43.9 [facility] Hematocrit Auto (Bld) [Volum e fraction]Ordered By: Kathiahayden Tavares on 10-26-2023 Hematocrit (Bld) [Volume fraction] 37.4 % 37-47 [facility] - Chemistry and C hemistry - challengeOrdered By: Kathia Tavares on 10-26-2023 Albumin/Globulin [Mass ratio] 0.9 {ratio} 0.9-2.4 [facility] ALP [Catalytic activity/Vol] 47 U/L 45-117 [facility] ALT [Catalytic activity/Vol] 30 U/L 13-56 [facility] Cholesterol in HDL [Mass/Vol] 49 mg/dL >40 [facility] Comment on above: The drugs N-Acetylcy steine and Metamizole may falsely depress this assay. Reference Range HDL <40 mg/dL Low HDL Cholesterol HDL >or= 60 mg/dL High HDL Cholesterol Cholesterol in LDL [Mass/Vol] 108 mg/dL 0-130 [facility] CO2 [Moles/Vol] 23.0 mmol/L 21.0-32.0 [facility] Globulin (S) [Mass/Vol] 3.9 g/dL 2.2-4.[address] [facility] Magnesium [Mass/Vol] 1.7 mg/dL 1.6-2.[address] [facility] Urea nitrogen/Creatinine [Mass ratio] 12.8 mg/mg 10-20 [facility] - Hematology and Cell countsOrdered By: Kathia Tavares on 10-26-2023 MCH (RBC) [Entitic mass] 30.2 pg 27.0-32.0 [facility] MCHC (RBC) [Mass/Vol] 33.4 g/dL 32-36 [facility] Platelet mean volume (Bld) [Entitic vol] 9.8 fL 6.2-12.0 [facility] Platelets (Bld) [#/Vol] 260 10*3/uL 150-450 [facility] No Panel InformationOrdered By: Kathia Tavares on 10-26-2023 Estimated GFR (MDRD) Amer 36 mL/min >60 [facility] Comment on above: GFR Calc Estimated GFR (MDRD) Non-Af Amer 30 mL/min >60 [facility] Comment on above: Non- GFR Calc Vitamin D 25-Hydroxy 55.9 ng/mL [facility] Comment on above: Vitamin D 25(OH) Sta tus Range Deficiency <20 ng/mL (50nmol/L) Insufficiency 20 - 30 ng/mL (50 - 75 nmol/L) Sufficiency 30 - 100 ng/mL (75 - 250 nmol/L) Toxicity >100 ng/mL (>250 nmol/L) VLDL Cholesterol 45 mg/dL 5-40 [facility] RBC Auto (Bld) [#/Vol]Ordere d By: Kathia Tavares on 10-26-2023 RBC (Bld) [#/Vol] 4.14 10*6/uL 4.2-5.4 [facility] Serum or plasma calcium marleni urement (mass/volume)Ordered By: Kathia Tavares on 10-26-2023 Calcium [Mass/Vol] 9.5 mg/dL 8.5-10.1 [facility] Serum or plasma creatinine m easurement (mass/volume)Ordered By: Kathia Tavares on 10-26-2023 Creatinine [Mass/Vol] 1.79 mg/dL 0.55-1.02 [facility] Comment on above: The validity of the calculated GFR & GFRAA in patients over 70 years has not been determined. Clinical correlation is essential. Serum or plasma urea nitroge n measurement (mass/volume)Ordered By: Kathia Tavares on 10-26-2023 Urea nitrogen [Mass/Vol] 23 mg/dL 7-18 [facility] Thin prep Papanicolaou smear with manual screeningOrdered By: Kathia Anusha on 10-26-2023 Thin prep Papanicolaou smear with manual screening 3.5 g/dL 3.2-5.0 [facility] Thin prep Papanicolaou smear with manual screening 25 U/L 15-37 [facility] Thin prep Papanicolaou smear with manual screening 10 5-15 [facility] Whole blood hemoglobin A1c/t otal hemoglobin ratio (mass fraction)Ordered By: Kathia Anusha on 10-26-2023 HbA1c (Bld) [Mass fraction] 5.8 % 3.8-5.6 [facility] Comment on above: Normal < 5.7 % Predi abetic 5.7 - 6.4 % Diabetic >or= 6.5 % Please note range changes. Basophil percentageOrdered B y: Kathia Anusha on 04-06-2023 Bilirubin [Mass/Vol] 0.40 mg/dL 0.20-1.[address] [facility] Comment on above: For patients on eltr ombopag therapy, use of Dimension Bode TBIL is not recommended. Chloride [Moles/Vol] 109 mmol/L 98-[address] [facility] Cholesterol [Mass/Vol] 192 mg/dL <200 [facility] Comment on above: <200 mg/dL Desirable 200-240 mg/dL Borderline >240 mg/dL High Risk Glucose [Mass/Vol] 110 mg/dL 74-106 [facility] Comment on above: Fasting Glucose resu lt from 100 to 125 mg/dL suggests IMPAIRED HOMEOSTASIS per A.D.A. criteria. Potassium [Moles/Vol] 4.0 mmol/L 3.5-5.1 [facility] Protein [Mass/Vol] 7.3 g/dL 6.4-8.2 [facility] Sodium [Moles/Vol] 138 mmol/L 136-145 [facility] Triglyceride [Mass/Vol] 216 mg/dL <[address] [facility] Comment on above: The drugs N-Acetylcy steine and Metamizole may falsely depress this assay.Serum Triglycerides Reference Interval Normal <150 mg/dL Borderline high 150 - 199 mg/dL High 200 - 499 mg/dL Very High > or = 500 mg/dL WBC (Bld) [#/Vol] 6.2 10*3/uL 4.4-11.0 [facility] Blood erythrocytes count (nu mber/volume)Ordered By: Kathia Tavares on 04-06-2023 RBC (Bld) [#/Vol] 3.99 10*6/uL 4.2-5.4 [facility] Blood hemoglobin measurement (mass/volume)Ordered By: Kathia Tavares on 04-06-2023 Hemoglobin (Bld) [Mass/Vol] 12.4 g/dL 12.0-15.0 [facility] Blood platelet mean volumeOr dered By: Kathia Tavares on 04-06-2023 Platelet mean volume (Bld) [Entitic vol] 10.0 fL 6.2-12.0 [facility] Determination of erythrocyte mean corpuscular volume (MCV)Ordered By: Kathia Tavares on 04-06-2023 MCV (RBC) [Entitic vol] 93.2 fL 81-[address] [facility] Hematocrit Auto (Bld) [Volum e fraction]Ordered By: Kathia Tavares on 04-06-2023 Hematocrit (Bld) [Volume fraction] 37.2 % 37-47 [facility] - Chemistry and C hemistry - challengeOrdered By: Kathia Tavares on 04-06-2023 ALP [Catalytic activity/Vol] 52 U/L 45-117 [facility] ALT [Catalytic activity/Vol] 26 U/L 13-56 [facility] CO2 [Moles/Vol] 25.0 mmol/L 21.0-32.0 [facility] Globulin (S) [Mass/Vol] 3.6 g/dL 2.2-4.[address] [facility] Urea nitrogen/Creatinine [Mass ratio] 13.9 mg/mg 10-20 [facility] - Hematology and Cell countsOrdered By: Kathia Tavares on 04-06-2023 Erythrocyte distribution width (RBC) [Entitic vol] 45.1 fL 35.1-43.9 [facility] Erythrocyte distribution width (RBC) [Ratio] 13.2 % 11.6-14.6 [facility] MCH (RBC) [Entitic mass] 31.1 pg 27.0-32.0 [facility] MCHC Auto (RBC) [Mass/Vol]Or dered By: Kathia Tavares on 04-06-2023 MCHC (RBC) [Mass/Vol] 33.3 g/dL 32-36 [facility] No Panel InformationOrdered By: Kathia Tavares on 04-06-2023 Estimated GFR (MDRD) Amer 40 mL/min >60 [facility] Comment on above: GFR Calc Estimated GFR (MDRD) Non-Af Amer 33 mL/min >60 [facility] Comment on above: Non- GFR Calc Vitamin D 25-Hydroxy 57.6 ng/mL [facility] Comment on above: Vitamin D 25(OH) Sta tus Range Deficiency <20 ng/mL (50nmol/L) Insufficiency 20 - 30 ng/mL (50 - 75 nmol/L) Sufficiency 30 - 100 ng/mL (75 - 250 nmol/L) Toxicity >100 ng/mL (>250 nmol/L) Platelets bldOrdered By: Swathi Tavares on 04-06-2023 Platelets (Bld) [#/Vol] 285 10*3/uL 150-450 [facility] Serum or plasma albumin marleni urement (mass/volume)Ordered By: Kathia Tavares on 04-06-2023 Albumin [Mass/Vol] 3.7 g/dL 3.2-5.0 [facility] Serum or plasma albumin/glob ulin mass ratioOrdered By: Kathia Tavares on 04-06-2023 Albumin/Globulin [Mass ratio] 1.0 {ratio} 0.9-2.4 [facility] Serum or plasma calcium marleni urement (mass/volume)Ordered By: Kathia Tavares on 04-06-2023 Calcium [Mass/Vol] 9.7 mg/dL 8.5-10.1 [facility] Serum or plasma cholesterol in HDL measurement (mass/volume)Ordered By: Kathia Tavares on 04-06-2023 Cholesterol in HDL [Mass/Vol] 49 mg/dL >40 [facility] Comment on above: The drugs N-Acetylcy steine and Metamizole may falsely depress this assay. Reference Range HDL <40 mg/dL Low HDL Cholesterol HDL >or= 60 mg/dL High HDL Cholesterol Serum or plasma cholesterol in VLDL measurement (mass/volume)Ordered By: Kathia Tavares on 04-06-2023 Cholesterol in VLDL [Mass/Vol] 43 mg/dL 5-40 [facility] Serum or plasma creatinine m easurement (mass/volume)Ordered By: Kathia Tavares on 04-06-2023 Creatinine [Mass/Vol] 1.65 mg/dL 0.55-1.02 [facility] Comment on above: The validity of the calculated GFR & GFRAA in patients over 70 years has not been determined. Clinical correlation is essential. Serum or plasma low density lipoprotein (LDL) cholesterol measurement (mass/volume)Ordered By: Kathia Tavares on 04-06-2023 Cholesterol in LDL [Mass/Vol] 100 mg/dL 0-130 [facility] Serum or plasma urea nitroge n measurement (mass/volume)Ordered By: Kathia Tavares on 04-06-2023 Urea nitrogen [Mass/Vol] 23 mg/dL 7-18 [facility] Thin prep Papanicolaou smear with manual screeningOrdered By: Kathia Tavares on 04-06-2023 Thin prep Papanicolaou smear with manual screening 13 U/L 15-37 [facility] Thin prep Papanicolaou smear with manual screening 4 5-15 [facility] Whole blood hemoglobin A1c/t otal hemoglobin ratio (mass fraction)Ordered By: Kathia Tavares on 04-06-2023 HbA1c (Bld) [Mass fraction] 5.8 % 3.8-5.6 [facility] Comment on above: Normal < 5.7 % Predi abetic 5.7 - 6.4 % Diabetic >or= 6.5 % Please note range changes. Basophil percentageon 2021 Bilirubin [Mass/Vol] 0.40 mg/dL 0.20-1.[address] [facility] Work Phone: Comment on above: For patients on eltr ombopag therapy, use of Dimension Bode TBIL is not recommended. Chloride [Moles/Vol] 110 mmol/L 98-[address] [facility] Work Phone: [phone] Cholesterol [Mass/Vol] 173 mg/dL <200 [facility] Work Phone: Comment on above: <200 mg/dL Desirable 200-240 mg/dL Borderline >240 mg/dL High Risk Glucose [Mass/Vol] 134 mg/dL 74-106 [facility] Work Phone: Comment on above: Fasting Glucose resu lt greater than or equal to 126 mg/dL suggests DIABETES MELLITUS per A.D.A. criteria. Potassium [Moles/Vol] 3.9 mmol/L 3.5-5.1 [facility] Work Phone: Protein [Mass/Vol] 7.7 g/dL 6.4-8.2 [facility] Work Phone: [phone] Sodium [Moles/Vol] 142 mmol/L 136-145 [facility] Work Phone: [phone] Triglyceride [Mass/Vol] 231 mg/dL <199 [facility] Work Phone: Comment on above: The drugs N-Acetylcy steine and Metamizole may falsely depress this assay.Serum Triglycerides Reference Interval Normal <150 mg/dL Borderline high 150 - 199 mg/dL High 200 - 499 mg/dL Very High > or = 500 mg/dL WBC (Bld) [#/Vol] 7.1 10*3/uL 4.4-11.0 [facility] Work Phone: [phone] Blood erythrocytes count (nu mber/volume)on 04-02-2022 RBC (Bld) [#/Vol] 4.55 10*6/uL 4.2-5.4 [facility] Work Phone: [phone] Blood hemoglobin measurement (mass/volume)on 04-02-2022 Hemoglobin (Bld) [Mass/Vol] 14.0 g/dL 12.0-15.0 [facility] Work Phone: [phone] Blood platelet mean volumeon 04-02-2022 Platelet mean volume (Bld) [Entitic vol] 9.4 fL 6.2-12.0 [facility] Work Phone: [phone] Determination of erythrocyte mean corpuscular volume (MCV)on 04-02-2022 MCV (RBC) [Entitic vol] 91.4 fL 81-99 [facility] Work Phone: [phone] Hematocrit Auto (Bld) [Volum e fraction]on 04-02-2022 Hematocrit (Bld) [Volume fraction] 41.6 % 37-47 [facility] Work Phone: [phone] Laboratory - Chemistry and C hemistry - challengeon 04-02-2022 ALP [Catalytic activity/Vol] 65 U/L 45-117 [facility] Work Phone: [phone] ALT [Catalytic activity/Vol] 45 U/L 13-56 [facility] Work Phone: [phone] CO2 [Moles/Vol] 24.0 mmol/L 21.0-32.0 [facility] Work Phone: [phone] Globulin (S) [Mass/Vol] 4.2 g/dL 2.2-4.2 [facility] Work Phone: [phone] Magnesium [Mass/Vol] 2.0 mg/dL 1.6-2.[address] [facility] Work Phone: [phone] Urea nitrogen/Creatinine [Mass ratio] 19.4 mg/mg 10-20 [facility] Work Phone: [phone] Laboratory - Hematology and Cell countson 04-02-2022 Erythrocyte distribution width (RBC) [Entitic vol] 44.3 fL 35.1-43.9 [facility] Work Phone: [phone] Erythrocyte distribution width (RBC) [Ratio] 13.2 % 11.6-14.6 [facility] Work Phone: [phone] MCH (RBC) [Entitic mass] 30.8 pg 27.0-32.0 [facility] Work Phone: [phone] MCHC Auto (RBC) [Mass/Vol]on 04-02-2022 MCHC (RBC) [Mass/Vol] 33.7 g/dL 32-36 [facility] Work Phone: [phone] No Panel Informationon 04-02 Estimated GFR (MDRD) Amer 53 mL/min >60 [facility] Work Phone: Comment on above: GFR Calc Estimated GFR (MDRD) Non-Af Amer 44 mL/min >60 [facility] Work Phone: Comment on above: Non- GFR Calc Vitamin D 25-Hydroxy 52.9 ng/mL [facility] Work Phone: Comment on above: Vitamin D 25(OH) Sta tus Range Deficiency <20 ng/mL (50nmol/L) Insufficiency 20 - 30 ng/mL (50 - 75 nmol/L) Sufficiency 30 - 100 ng/mL (75 - 250 nmol/L) Toxicity >100 ng/mL (>250 nmol/L) Platelets bldon 04-02-2022 Platelets (Bld) [#/Vol] 307 10*3/uL 150-450 [facility] Work Phone: Serum or plasma albumin marleni urement (mass/volume)on 04-02-2022 Albumin [Mass/Vol] 3.5 g/dL 3.2-5.0 [facility] Work Phone: Serum or plasma albumin/glob ulin mass ratioon 04-02-2022 Albumin/Globulin [Mass ratio] 0.8 {ratio} 0.9-2.4 [facility] Work Phone: Serum or plasma calcium marleni urement (mass/volume)on 04-02-2022 Calcium [Mass/Vol] 9.8 mg/dL 8.5-10.1 [facility] Work Phone: Serum or plasma cholesterol in HDL measurement (mass/volume)on 04-02-2022 Cholesterol in HDL [Mass/Vol] 41 mg/dL >40 [facility] Work Phone: Comment on above: The drugs N-Acetylcy steine and Metamizole may falsely depress this assay. Reference Range HDL <40 mg/dL Low HDL Cholesterol HDL >or= 60 mg/dL High HDL Cholesterol Serum or plasma cholesterol in VLDL measurement (mass/volume)on 10-08-2022 Cholesterol in VLDL [Mass/Vol] 46 mg/dL 5-40 [facility] Work Phone: [phone] Serum or plasma creatinine m easurement (mass/volume)on 04-02-2022 Creatinine [Mass/Vol] 1.29 mg/dL 0.55-1.02 [facility] Work Phone: Comment on above: The validity of the calculated GFR & GFRAA in patients over 70 years has not been determined. Clinical correlation is essential. Serum or plasma low density lipoprotein (LDL) cholesterol measurement (mass/volume)on 04-02-2022 Cholesterol in LDL [Mass/Vol] 86 mg/dL 0-130 [facility] Work Phone: Serum or plasma urea nitroge n measurement (mass/volume)on 04-02-2022 Urea nitrogen [Mass/Vol] 25 mg/dL 7-18 [facility] Work Phone: Thin prep Papanicolaou smear with manual screeningon 04-02-2022 Thin prep Papanicolaou smear with manual screening 24 U/L 15-37 [facility] Work Phone: [phone] Thin prep Papanicolaou smear with manual screening 8 5-15 [facility] Work Phone: [phone] Whole blood hemoglobin A1c/t otal hemoglobin ratio (mass fraction)on 04-02-2022 HbA1c (Bld) [Mass fraction] 6.2 % 3.8-5.6 [facility] Work Phone: Comment on above: Normal < 5.7 % Predi abetic 5.7 - 6.4 % Diabetic >or= 6.5 % Please note range changes. Basophil percentageon 2021 Chloride [Moles/Vol] 108 mmol/L 98-[address] [facility] Work Phone: Glucose [Mass/Vol] 135 mg/dL 74-106 [facility] Work Phone: [phone] Comment on above: Fasting Glucose resu lt greater than or equal to 126 mg/dL suggests DIABETES MELLITUS per A.D.A. criteria. Potassium [Moles/Vol] 3.7 mmol/L 3.5-5.1 [facility] Work Phone: Sodium [Moles/Vol] 138 mmol/L 136-145 [facility] Work Phone: Laboratory - Chemistry and C hemistry - challengeon 10-09-2021 CO2 [Moles/Vol] 24.0 mmol/L 21.0-32.0 [facility] Work Phone: Urea nitrogen/Creatinine [Mass ratio] 11.3 mg/mg 10-20 [facility] Work Phone: No Panel Informationon 10-09 Estimated GFR (MDRD) Amer 60 mL/min >60 [facility] Work Phone: Comment on above: GFR Calc Estimated GFR (MDRD) Non-Af Amer 50 mL/min >60 [facility] Work Phone: Comment on above: Non- GFR Calc Serum or plasma calcium marleni urement (mass/volume)on 10-09-2021 Calcium [Mass/Vol] 8.9 mg/dL 8.5-10.1 [facility] Work Phone: Serum or plasma creatinine m easurement (mass/volume)on 10-09-2021 Creatinine [Mass/Vol] 1.15 mg/dL 0.55-1.02 [facility] Work Phone: Comment on above: The validity of the calculated GFR & GFRAA in patients over 70 years has not been determined. Clinical correlation is essential. Serum or plasma urea nitroge n measurement (mass/volume)on 10-09-2021 Urea nitrogen [Mass/Vol] 13 mg/dL 7-18 [facility] Work Phone: [phone] Thin prep Papanicolaou smear with manual screeningon 10-09-2021 Thin prep Papanicolaou smear with manual screening 6 5-15 [facility] Work Phone: [phone] Whole blood hemoglobin A1c/t otal hemoglobin ratio (mass fraction)on 10-09-2021 HbA1c (Bld) [Mass fraction] 6.2 % 3.8-5.6 [facility] Work Phone: Comment on above: Normal < 5.7 % Predi abetic 5.7 - 6.4 % Diabetic >or= 6.5 % Please note range changes. Vital Signs Date Time Vital Sign Value Performing Clinician Facility 10-01-2024 11:09-0400 Diastolic blood pressure 70 mm[Hg] Kathia Tavares MD Work Phone: [facility] 10-01-2024 11:09-0400 Systolic blood pressure 128 mm[Hg] Kathia Tavares MD Work Phone: [facility] 10-01-2024 10:33-0400 Body mass index (BMI) [Ratio] 38.37 kg/m2 Kathia Tavares MD Work Phone: [facility] 10-01-2024 10:33-0400 Body weight 102.2 kg Kathia Tavares MD Work Phone: [facility] 10-01-2024 10:33-0400 Heart rate 51 /min Kathia Tavares MD Work Phone: [facility] 10-01-2024 10:33-0400 Respiratory rate 14 /min Kathia Tavares MD Work Phone: [facility] 10-01-2024 10:33-0400 SaO2% (BldA) [Mass fraction] 94 % Kathia Tavares MD Work Phone: [facility] 06-11-2024 08:38-0500 Body height 165.[address] Kathia Tavares MD Work Phone: [facility] 06-11-2024 08:38-0500 Body mass index (BMI) [Ratio] 37 kg/m2 Dr. Kathia Tavares MD Work Phone: [facility] 06-11-2024 08:38-0500 Body weight 101.[address] Kathia Tavares MD Work Phone: [facility] 06-11-2024 08:38-0500 Diastolic blood pressure 75 mm[Hg] Dr. Kathia Tavares MD Work Phone: 2(198)390-329411 [place] [address] 06-11-2024 08:38-0500 Systolic blood pressure 152 mm[Hg] Dr. Kathia Tavares MD Work Phone: 4(101)689-467211 [place] [address] 06-06-2024 10:04-0500 Body temperature 98.3 [degF] Dr. Kathia Tavares MD Work Phone: 6(240)539-157411 [place] [address] 06-06-2024 10:04-0500 Diastolic blood pressure 71 mm[Hg] Dr. Kathia Tavares MD Work Phone: 9(273)912-297611 [place] [address] 06-06-2024 10:04-0500 Heart rate 50 /min Dr. Kathia Tavares MD Work Phone: 4(271)373-183811 [place] [address] 06-06-2024 10:04-0500 Respiratory rate 16 /min Dr. Kathia Tavares MD Work Phone: 0(567)264-414811 [place] [address] 06-06-2024 10:04-0500 SaO2% (BldA) [Mass fraction] 97 % Dr. Kathia Tavares MD Work Phone: 4(571)976-361711 [place] [address] 06-06-2024 10:04-0500 Systolic blood pressure 167 mm[Hg] Dr. Kathia Tavares MD Work Phone: 5(505)421-355511 [place] [address] 06-06-2024 09:04-0500 Body mass index (BMI) [Ratio] 37 kg/m2 Dr. Kathia Tavares MD Work Phone: 6(255)164-822693 [place] [address] 06-06-2024 09:04-0500 Body weight 101.[address] Kathia Tavares MD Work Phone: 9(711)588-780011 [place] [address] 03-26-2024 09:52-0400 Body mass index (BMI) [Ratio] 39.09 kg/m2 Kathia Tavares MD Work Phone: [facility] 03-26-2024 09:52-0400 Body temperature 98.29 [degF] Kathia Tavares MD Work Phone: [facility] 03-26-2024 09:52-0400 Body weight 104.1 kg Kathia Tavares MD Work Phone: [facility] 03-26-2024 09:52-0400 Diastolic blood pressure 82 mm[Hg] Kathia Tavares MD Work Phone: [facility] 03-26-2024 09:52-0400 Heart rate 52 /min Kathia Tavares MD Work Phone: [facility] 03-26-2024 09:52-0400 Respiratory rate 16 /min Kathia Tavares MD Work Phone: [facility] 03-26-2024 09:52-0400 SaO2% (BldA) [Mass fraction] 97 % Kathia Tavares MD Work Phone: [facility] 03-26-2024 09:52-0400 Systolic blood pressure 150 mm[Hg] Kathia Tavares MD Work Phone: [facility] 04-12-2023 09:00-0400 Body temperature 97.11 [degF] Kathia Tavares MD Work Phone: [facility] 04-12-2023 09:00-0400 Body weight 97.98 kg Kathia Tavares MD Work Phone: [facility] 04-12-2023 09:00-0400 Diastolic blood pressure 82 mm[Hg] Kathia Tavares MD Work Phone: [facility] 04-12-2023 09:00-0400 Heart rate 56 /min Kathia Tavares MD Work Phone: [facility] 04-12-2023 09:00-0400 Respiratory rate 18 /min Kathia Tavares MD Work Phone: [facility] 04-12-2023 09:00-0400 Systolic blood pressure 126 mm[Hg] Kathia Tavares MD Work Phone: [facility] 09-28-2022 16:22-0400 Body height 163.2 cm Kathia Tavares MD Work Phone: [facility] 09-28-2022 16:22-0400 Body weight 109.32 kg Kathia Tavares MD Work Phone: [facility] 09-28-2022 16:22-0400 Diastolic blood pressure 78 mm[Hg] Kathia Tavares MD Work Phone: [facility] 09-28-2022 16:22-0400 Heart rate 66 /min Kathia Tavares MD Work Phone: [facility] 09-28-2022 16:22-0400 Respiratory rate 16 /min Kathia Tavares MD Work Phone: [facility] 09-28-2022 16:22-0400 Systolic blood pressure 130 mm[Hg] Kathia Tavares MD Work Phone: [facility] 06-14-2022 19:08-0500 Diastolic blood pressure 82 mm[Hg] Kathia Tavares MD Work Phone: [facility] 06-14-2022 19:08-0500 Systolic blood pressure 138 mm[Hg] Kathia Tavares MD Work Phone: [facility] 06-14-2022 18:47-0500 Body weight 106.14 kg Kathia Tavares MD Work Phone: [facility] 06-14-2022 18:47-0500 Heart rate 87 /min Kathia Tavares MD Work Phone: [facility] 06-14-2022 18:47-0500 SaO2% (BldA) [Mass fraction] 96 % Kathia Tavares MD Work Phone: [facility] 06-06-2022 14:51-0500 Body temperature 97.9 [degF] Dr. Kathia Tavares Work Phone: [facility] Work Phone: 06-06-2022 14:51-0500 Diastolic blood pressure 82 mm[Hg] Dr. Kathia Tavares Work Phone: [facility] Work Phone: 06-06-2022 14:51-0500 Heart rate 69 /min Dr. Kathia Tavares Work Phone: [facility] Work Phone: 06-06-2022 14:51-0500 Respiratory rate 16 /min Dr. Kathia Tavares Work Phone: [facility] Work Phone: 06-06-2022 14:51-0500 SaO2% (BldA) [Mass fraction] 97 % Dr. Kathia Tavares Work Phone: [facility] Work Phone: 06-06-2022 14:51-0500 Systolic blood pressure 169 mm[Hg] Dr. Kathia Tavares Work Phone: [facility] Work Phone: 06-06-2022 13:45-0500 Body height 165.[address] Kathia Tavares Work Phone: [facility] Work Phone: 06-06-2022 13:45-0500 Body mass index (BMI) [Ratio] 39.1 kg/m2 Dr. Kathia Tavares Work Phone: [facility] Work Phone: 06-06-2022 13:45-0500 Body weight 106.[address] Kathia Tavares Work Phone: [facility] Work Phone: 05-16-2022 11:29-0500 Body mass index (BMI) [Ratio] 39.7 kg/m2 Dr. Kathia Tavares Work Phone: [facility] Work Phone: 05-16-2022 11:29-0500 Body weight 108.[address] Kathia Tavares Work Phone: [facility] Work Phone: 05-16-2022 11:29-0500 Diastolic blood pressure 82 mm[Hg] Dr. Kathia Tavares Work Phone: [facility] Work Phone: 05-16-2022 11:29-0500 Systolic blood pressure 148 mm[Hg] Dr. Kathia Tavares Work Phone: [facility] Work Phone: 04-12-2022 19:17-0400 Diastolic blood pressure 82 mm[Hg] Kathia Tavares MD Work Phone: [facility] 04-12-2022 19:17-0400 Systolic blood pressure 132 mm[Hg] Kathia Tavares MD Work Phone: [facility] 04-12-2022 18:21-0400 Body weight 106.14 kg Kathia Tavares MD Work Phone: [facility] 04-12-2022 18:21-0400 Heart rate 83 /min Kathia Tavares MD Work Phone: [facility] 04-12-2022 18:21-0400 SaO2% (BldA) [Mass fraction] 97 % Kathia Tavares MD Work Phone: [facility] Encounters Encounter Date Encounter Type Care Provider Facility Start: 04-11-2025 End: 04-11-2025 ambulatory Nancy Franklin Facility:[facility] Start: 04-08-2025 End: 04-08-2025 ambulatory KATHIA TAVARES Facility:[facility] Start: 04-08-2025 Patient encounter procedure KATHIA TAVARES [facility] Start: 04-05-2025 End: 04-05-2025 ambulatory Kathia Tavares Facility:[facility] Start: 02-17-2025 End: 02-17-2025 ambulatory Farida Garces MA [facility] Start: 02-17-2025 End: 02-17-2025 Patient encounter procedure Farida Garces MA [facility] Comment on above: Population Health Na vigation Outreach ([facility] ) Start: 10-01-2024 End: 10-01-2024 Office outpatient visit 25 minutes Kathia Tavares MD Work Phone: [facility] Comment on above: Controlled type 2 di abetes mellitus without complication, without long-term current use of insulin (HCC) (Primary Dx); Migraine with aura and without status migrainosus, not intractable; Gastroesophageal reflux disease without esophagitis; Mixed hyperlipidemia; SHALOM on CPAP; Essential hypertension; Hypomagnesemia; Vitamin D deficiency; Stage 3b chronic kidney disease (HCC); Encounter for long-term current use of medication; IFG (impaired fasting glucose); Osteopenia of necks of both femurs Start: 10-01-2024 End: 10-01-2024 ambulatory KATHIA TAVARES Facility:[facility] Start: 09-27-2024 End: 09-27-[address] Kathia Tavares MD Work Phone: [facility] Work Phone: Start: 09-27-2024 End: 09-27-[address] Kathia Tavares MD -Laboratory Work Phone: Start: 09-27-2024 End: 09-27-2024 ambulatory Kathia Tavares Facility:[facility] Start: 07-16-2024 Encounter for gynecological examination (general) (routine) without abnormal findings Nancy Franklin [facility] Start: 06-11-2024 End: 06-11-[address] Nancy Franklin DO -Laboratory, Specimen Work Phone: Start: 06-11-2024 End: 06-11-[address] Nancy Franklin DO -[facility] Work Phone: Start: 06-11-2024 End: 06-11-[address] Nancy Franklin DO [facility] Start: 06-11-2024 End: 06-11-2024 ambulatory Kathia Tavares [place] [place] Start: 06-11-2024 End: 06-11-2024 ambulatory Nancy Franklin Facility:[facility] Start: 06-06-2024 End: 06-06-[address] Kathia Tavares MD -Medical Out Work Phone: Start: 06-06-2024 End: 06-06-2024 ambulatory Kathia Tavares Facility:[facility] Start: 05-06-2024 End: 05-10-2024 Telephone encounter Kathia Tavares MD Work Phone: [facility] Comment on above: Orders; Results Start: 04-30-2024 End: 04-30-2024 ambulatory Kathia Tavares Facility:[facility] Start: 03-29-2024 End: 03-29-2024 Telephone encounter Kathia Tavares MD Work Phone: [facility] Comment on above: Medication Request Start: 03-28-2024 End: 04-09-2024 Telephone encounter Kathia Tavares MD Work Phone: [facility] Comment on above: Orders Start: 03-26-2024 End: 03-26-2024 Office outpatient visit 25 minutes Kathia Tavares MD Work Phone: [facility] Comment on above: Controlled type 2 di abetes mellitus without complication, without long-term current use of insulin (HCC) (Primary Dx); Essential hypertension; Mixed hyperlipidemia; Neuropathy of both feet; Vitamin D deficiency; Age-related osteoporosis without current pathological fracture; Migraine without aura and without status migrainosus, not intractable; Encounter for immunization; Asymptomatic postmenopausal state; Screening for depression; Encounter for screening examination for other mental health and behavioral disorders; Class 2 obesity due to excess calories with body mass index (BMI) of 39.0 to 39.9 in adult, unspecified whether serious comorbidity present; Encounter for long-term current use of medication Start: 10-26-2023 End: 10-26-2023 ambulatory [facility] Work Phone: Start: 10-26-2023 End: 10-26-2023 Patient encounter procedure [facility] Work Phone: Start: 10-09-2023 End: 10-09-2023 Patient encounter procedure Kathia Tavares MD Work Phone: [facility] Comment on above: Medicare annual well ness visit, subsequent (Primary Dx); SHALOM on CPAP; Neuropathy of both feet; Ocular migraine; Migraine with aura and without status migrainosus, not intractable; Essential hypertension; Mixed hyperlipidemia; Hypopotassemia; Sciatica of right side; Gastroesophageal reflux disease without esophagitis; IFG (impaired fasting glucose); Vitamin D deficiency; Hypomagnesemia; Stage 3 chronic kidney disease, unspecified whether stage 3a or 3b CKD (HCC) Start: 10-09-2023 End: 10-09-2023 Telemedicine consultation with patient Kathia Tavares MD Work Phone: [facility] Start: 08-18-2023 Telephone encounter Kathia march MD Work Phone: [facility] Comment on above: Patient Update; Zohra ent Question Start: 04-12-2023 End: 04-12-2023 Office outpatient visit 25 minutes Kathia Tavares MD Work Phone: [facility] Comment on above: Essential hypertensi on (Primary Dx); Age-related osteoporosis without current pathological fracture; Mixed hyperlipidemia; Vitamin D deficiency; Hypomagnesemia; IFG (impaired fasting glucose); Stage 3 chronic kidney disease, unspecified whether stage 3a or 3b CKD (HCC); History of left breast cancer; Encounter for long-term current use of medication; Encounter for immunization Start: 04-06-2023 End: 04-06-2023 ambulatory [facility] Work Phone: Start: 04-06-2023 End: 04-06-2023 Patient encounter procedure [facility]Out[facility] Work Phone: Start: 12-30-2022 Refill Kathia castillo MD Work Phone: [facility] Comment on above: Refill Request Start: 09-28-2022 End: 09-28-2022 Office outpatient visit 25 minutes Kathia Tavares MD Work Phone: [facility] Comment on above: Controlled type 2 di abetes mellitus without complication, without long-term current use of insulin ([facility]) (Primary Dx); Essential hypertension; Ocular migraine; Migraine with aura and without status migrainosus, not intractable; Mixed hyperlipidemia; Hypopotassemia; Gastroesophageal reflux disease without esophagitis; Essential hypertension; Sciatica of right side; Vitamin D deficiency; Class 3 severe obesity due to excess calories with body mass index (BMI) of 40.0 to 44.9 in adult, unspecified whether serious comorbidity present (HCC) Start: 06-14-2022 End: 06-14-2022 Office outpatient visit 25 minutes Kathia Tavares MD Work Phone: [facility] Comment on above: Essential hypertensi on (Primary Dx); Ocular migraine Start: 06-07-2022 Telephone encounter Kathia march MD Work Phone: [facility] Comment on above: Patient Update Start: 06-06-2022 End: 06-06-[address] Kathia Tavares Work Phone: [facility] Work Phone: Start: 06-06-2022 End: 06-06-[address] Kathia Tavares Work Phone: [facility]Medical Out Start: 05-16-2022 End: 05-16-[address] Kathia Tavares Work Phone: [facility] Start: 05-13-2022 Telephone encounter Kathia march MD Work Phone: Internal [facility] Comment on above: Release Of Medical R ecords Start: 04-12-2022 End: 04-12-2022 Office outpatient visit 25 minutes Kathia Tavares MD Work Phone: [facility] Comment on above: Age-related osteopor osis without current pathological fracture (Primary Dx); Hypopotassemia; Mixed hyperlipidemia; Essential hypertension; Vitamin D deficiency; Elevated glucose; Encounter for immunization Start: 04-05-2022 End: 04-05-2022 ambulatory [facility] Work Phone: Start: 04-05-2022 End: 04-05-2022 Patient encounter procedure [facility] Start: 04-02-2022 End: 04-02-2022 Patient encounter procedure [facility] Start: 10-09-2021 End: 10-09-2021 Patient encounter procedure [facility] Procedures Date Procedure Procedure Detail Performing Clinician Start: 03-26-2024 Adult depression scr eening assessment Kathia Tavares MD Work Phone: Start: 04-12-2023 INFLUENZA VACCINE, P RSV FREE, AGE 65+ YR, HIGH DOSE, QUADRIVALENT (FLUZONE HIGH-DOSE) Kathia Tavares MD Work Phone: Start: 04-06-2023 Screening mammography Start: 09-26-2022 Lipid 1996 panel - S daniella or Plasma Kathia Tavares MD Work Phone: Start: 04-12-2022 INFLUENZA SEASONAL QUADRIVALENT HIGH DOSE AGE 65+ Kathia Tavares MD Work Phone: Start: 04-05-2022 Dual energy X-ray absorptiometry Start: 04-05-2022 End: 04-05-2022 Screening mammography Start: 10-08-2021 Colonoscopy Kathia avilez MD Work Phone: Plan of Treatment Date Care Activity Detail Author Start: 10-09-2031 Colonoscopy COLONOSCOPY [facility] Start: 10-09-2031 COLORECTAL CANCER SCREENING COLORECTAL CANCER SCREENING [facility] Start: 10-09-2031 Screening for malign ant neoplasm of colon [facility] Start: 09-27-2027 Lipid 1996 panel - Serum or Plasma Lipid Screening [facility] Start: 09-27-2027 Lipid panel Lipid Screening [facility] Start: 09-27-2027 LIPID SCREEN LIPID SCREEN [facility] Start: 04-30-2026 Screening for osteoporosis Bone Density Screening [facility] Start: 04-22-2026 LIPID SCREEN LIPID SCREEN [facility] Start: 10-01-2025 Annual PCP Team Ointment [facility] Disease Visit Annual PCP Team Chronic Disease Visit [facility] Start: 10-01-2025 BP Controlled (<130/80) BP Controlle d (<130/80) [facility] Start: 10-01-2025 Covid-19 Vaccine ( season) Covid-19 Vaccine () [facility] Comment on above: Postponed from 09/06 (Declined at this time) Start: 10-01-2025 Urine microalbumin profile DTaP,Tdap,Td Vaccine (2 - Td or Tdap) [facility] Comment on above: Postponed from 10/23 (Declined at this time) Start: 04-09-2025 Screening for malign ant neoplasm of breast Mammogram Screening [facility] Start: 04-08-2025 End: 04-08-2025 Patient encounter procedure 04/08/2025 9:00 AM EDT Office Visit [facility] [address] [place], [place] [id number] Kathia Tavares MD [address] [place] [address] Medicare Wellness [facility] Comment on above: Medicare Wellness Start: 03-26-2025 Annual PCP Team Ointment [facility] Disease Visit Annual PCP Team Chronic Disease Visit [facility] Start: 03-26-2025 Anxiety Screening Anxiety Screening [facility] Start: 03-26-2025 Depression Screening Depression Scre ening [facility] Start: 03-03-2025 End: 06-02-2025 25-hydroxyvitamin D3 [Mass/volume] in Serum or Plasma VITAMIN D 25 HYDROXY Lab Routine Vitamin D deficiency Expected: 03/03/2025 (Approximate), Expires: 06/02/2025 [facility] Comment on above: Expected: 03/03/2025 (Approximate), Expires: 06/02/2025 Start: 03-03-2025 End: 06-02-2025 CBC panel - Blood by Automated count COMPLETE BLOOD COUNT Lab Routine Essential hypertension Encounter for long-term current use of medication Expected: 03/03/2025 (Approximate), Expires: 06/02/2025 [facility] Comment on above: Expected: 03/03/2025 (Approximate), Expires: 06/02/2025 Start: 03-03-2025 End: 06-02-2025 Comprehensive metabolic 2000 panel - Serum or Plasma COMPREHENSIVE METABOLIC PANEL Lab Routine Essential hypertension Encounter for long-term current use of medication IFG (impaired fasting glucose) Expected: 03/03/2025 (Approximate), Expires: 06/02/2025 [facility] Comment on above: Expected: 03/03/2025 (Approximate), Expires: 06/02/2025 Start: 03-03-2025 End: 06-02-2025 Hemoglobin A1c in Blood HEMOGLOBIN A1C Lab Routine IFG (impaired fasting glucose) Expected: 03/03/2025 (Approximate), Expires: 06/02/2025 [facility] Comment on above: Expected: 03/03/2025 (Approximate), Expires: 06/02/2025 Start: 03-03-2025 End: 06-02-2025 Lipid 1996 panel - Serum or Plasma LIPID PANEL, FASTING Lab Routine Mixed hyperlipidemia Expected: 03/03/2025 (Approximate), Expires: 06/02/2025 [facility] Comment on above: Expected: 03/03/2025 (Approximate), Expires: 06/02/2025 Start: 03-03-2025 End: 06-02-2025 Magnesium [Mass/volume] in Serum or Plasma MAGNESIUM Lab Routine Encounter for long-term current use of medication Expected: 03/03/2025 (Approximate), Expires: 06/02/2025 [facility] Work Phone: Comment on above: Expected: 03/03/2025 (Approximate), Expires: 06/02/2025 Start: 03-03-2025 End: 06-02-2025 Microalbumin/Creatinine [Mass Ratio] in Urine ALBUMIN/CREATININE RATIO, URINE Lab Routine Controlled type 2 diabetes mellitus without complication, without long-term current use of insulin (HCC) Expected: 03/03/2025 (Approximate), Expires: 06/02/2025 [facility] Comment on above: Expected: 03/03/2025 (Approximate), Expires: 06/02/2025 Start: 02-24-2025 Influenza vaccination Influenza Vacc ine (#1) [facility] Start: 10-09-2024 [facility] Start: 10-09-2024 Diabetes Screening Diabetes Screenin g [facility] Start: 10-08-2024 Annual PCP Team Ointment [facility] Disease Visit Annual PCP Team Chronic Disease Visit [facility] Start: 10-08-2024 Medicare Annual Wellness Visit Medicare Annual Wellness Visit [facility] Start: 10-01-2024 End: 10-01-2024 Patient encounter procedure 10/01/2024 10:00 AM EDT Office Visit [facility] [address] [place] [address] Kathia Tavares MD [address] [facility] [place] [address] 6 month follow up [facility] Comment on above: 6 month follow up Start: 08-24-2024 End: 11-23-2024 25-hydroxyvitamin D3 [Mass/volume] in Serum or Plasma VITAMIN D 25 HYDROXY Lab Routine Age-related osteoporosis without current pathological fracture Encounter for long-term current use of medication Expected: 08/24/2024 (Approximate), Expires: 11/23/2024 [facility] Comment on above: Expected: 08/24/2024 (Approximate), Expires: 11/23/2024 Start: 08-24-2024 End: 11-23-2024 CBC panel - Blood by Automated count COMPLETE BLOOD COUNT Lab Routine Essential hypertension Encounter for long-term current use of medication Expected: 08/24/2024 (Approximate), Expires: 11/23/2024 [facility] Comment on above: Expected: 08/24/2024 (Approximate), Expires: 11/23/2024 Start: 08-24-2024 End: 11-23-2024 Comprehensive metabolic 2000 panel - Serum or Plasma COMPREHENSIVE METABOLIC PANEL Lab Routine Essential hypertension Encounter for long-term current use of medication Expected: 08/24/2024 (Approximate), Expires: 11/23/2024 [facility] Comment on above: Expected: 08/24/2024 (Approximate), Expires: 11/23/2024 Start: 08-24-2024 End: 11-23-2024 Hemoglobin A1c in Blood HEMOGLOBIN A1C Lab Routine Controlled type 2 diabetes mellitus without complication, without long-term current use of insulin (HCC) Essential hypertension Encounter for long-term current use of medication Expected: 08/24/2024 (Approximate), Expires: 11/23/2024 [facility] Comment on above: Expected: 08/24/2024 (Approximate), Expires: 11/23/2024 Start: 08-24-2024 End: 11-23-2024 Lipid 1996 panel - Serum or Plasma LIPID PANEL BASIC Lab Routine Mixed hyperlipidemia Encounter for long-term current use of medication Expected: 08/24/2024 (Approximate), Expires: 11/23/2024 [facility] Comment on above: Expected: 08/24/2024 (Approximate), Expires: 11/23/2024 Start: 08-24-2024 End: 11-23-2024 Magnesium [Mass/volume] in Serum or Plasma MAGNESIUM Lab Routine Encounter for long-term current use of medication Expected: 08/24/2024 (Approximate), Expires: 11/23/2024 [facility] Comment on above: Expected: 08/24/2024 (Approximate), Expires: 11/23/2024 Start: 06-26-2024 Advance Directive Discussion Advance Directive Discussion [facility] Start: 06-06-2024 Iv infusion therapy/prophylaxis /dx 1st to 1 hr THER/PROPH/DIAG IV INF [facility] Start: 04-12-2024 Annual PCP Team Ointment [facility] Disease Visit Annual PCP Team Chronic Disease Visit [facility] Start: 04-12-2024 Urine microalbumin profile DTaP,Tdap,Td Vaccine (2 - Td or Tdap) [facility] Comment on above: Postponed from 10/23 (Declined at this time) Start: 04-09-2024 End: 04-25-2025 DXA Skeletal system.axial Views for bone density DXA-AXIAL [facility] Radiology Routine Asymptomatic postmenopausal state Expected: 04/09/2024, Expires: 04/25/2025 [facility] Work Phone: Comment on above: Expected: 04/09/2024 , Expires: 04/25/2025 Start: 04-09-2024 Screening for malign ant neoplasm of breast Mammogram Screening [facility] Comment on above: Postponed from 04/05 (Currently Scheduled) Start: 04-05-2024 Mammography Mammogram Screening [facility] Start: 04-05-2024 Screening for malign ant neoplasm of breast Mammogram Screening [facility] Start: 03-26-2024 End: 06-25-2024 25-hydroxyvitamin D3 [Mass/volume] in Serum or Plasma VITAMIN D 25 HYDROXY Lab Routine Vitamin D deficiency Expected: 03/26/2024, Expires: 06/25/2024 [facility] Work Phone: Comment on above: Expected: 03/26/2024 , Expires: 06/25/2024 Start: 03-26-2024 End: 06-25-2024 CBC panel - Blood by Automated count COMPLETE BLOOD COUNT Lab Routine Essential hypertension Expected: 03/26/2024, Expires: 06/25/2024 [facility] Work Phone: Comment on above: Expected: 03/26/2024 , Expires: 06/25/2024 Start: 03-26-2024 End: 06-25-2024 Comprehensive metabolic 2000 panel - Serum or Plasma COMPREHENSIVE METABOLIC PANEL Lab Routine Essential hypertension IFG (impaired fasting glucose) Expected: 03/26/2024, Expires: 06/25/2024 [facility] Work Phone: Comment on above: Expected: 03/26/2024 , Expires: 06/25/2024 Start: 03-26-2024 End: 06-25-2024 Hemoglobin A1c in Blood HEMOGLOBIN A1C Lab Routine IFG (impaired fasting glucose) Expected: 03/26/2024, Expires: 06/25/2024 [facility] Work Phone: Comment on above: Expected: 03/26/2024 , Expires: 06/25/2024 Start: 03-26-2024 End: 06-25-2024 Lipid 1996 panel - Serum or Plasma LIPID PANEL BASIC Lab Routine Mixed hyperlipidemia Expected: 03/26/2024, Expires: 06/25/2024 [facility] Work Phone: Comment on above: Expected: 03/26/2024 , Expires: 06/25/2024 Start: 03-26-2024 End: 06-25-2024 Magnesium [Mass/volume] in Serum or Plasma MAGNESIUM Lab Routine Hypomagnesemia Expected: 03/26/2024, Expires: 06/25/2024 [facility] Work Phone: Comment on above: Expected: 03/26/2024 , Expires: 06/25/2024 Start: 09-29-2023 ANNUAL PCP TEAM [facility]IL[facility] DISEASE VISIT ANNUAL PCP TEAM CHRONIC DISEASE VISIT [facility] Start: 06-26-2023 Advance Directive Discussion Advance Directive Discussion [facility] Start: 06-26-2023 Behavioral Health Screening Behavioral Health Screening [facility] Start: 06-14-2023 ANNUAL PCP TE[facility]IL[facility] DISEASE VISIT ANNUAL PCP TEAM CHRONIC DISEASE VISIT [facility] Start: 04-12-2023 ANNUAL PCP TEAM [facility]IL[facility] DISEASE VISIT ANNUAL PCP TEAM CHRONIC DISEASE VISIT [facility] Start: 04-05-2023 Mammography MAMMOGRAM [facility] Start: 03-26-2023 End: 05-26-2023 25-hydroxyvitamin D3 [Mass/volume] in Serum or Plasma VITAMIN D 25 HYDROXY Lab Routine Vitamin D deficiency Expected: 03/26/2023 (Approximate), Expires: 05/26/2023 [facility] Work Phone: Comment on above: Expected: 03/26/2023 (Approximate), Expires: 05/26/2023 Start: 03-26-2023 End: 05-26-2023 CBC panel - Blood by Automated count CBC Lab Routine Essential hypertension Essential hypertension Expected: 03/26/2023 (Approximate), Expires: 05/26/2023 [facility] Work Phone: Comment on above: Expected: 03/26/2023 (Approximate), Expires: 05/26/2023 Start: 03-26-2023 End: 05-26-2023 Comprehensive metabolic 2000 panel - Serum or Plasma COMP METABOLIC PANEL Lab Routine Essential hypertension Essential hypertension Controlled type 2 diabetes mellitus without complication, without long-term current use of insulin (HCC) Expected: 03/26/2023 (Approximate), Expires: 05/26/2023 [facility] Work Phone: Comment on above: Expected: 03/26/2023 (Approximate), Expires: 05/26/2023 Start: 03-26-2023 End: 05-26-2023 Hemoglobin A1c in Blood HGB A1C Lab Routine Controlled type 2 diabetes mellitus without complication, without long-term current use of insulin (HCC) Expected: 03/26/2023 (Approximate), Expires: 05/26/2023 [facility] Work Phone: Comment on above: Expected: 03/26/2023 (Approximate), Expires: 05/26/2023 Start: 03-26-2023 End: 05-26-2023 Lipid 1996 panel - Serum or Plasma LIPID PANEL BASIC Lab Routine Mixed hyperlipidemia Expected: 03/26/2023 (Approximate), Expires: 05/26/2023 [facility] Work Phone: Comment on above: Expected: 03/26/2023 (Approximate), Expires: 05/26/2023 Start: 02-24-2023 Influenza vaccination INFLUENZA (#1) [facility] Start: 09-24-2022 End: 11-24-2022 25-hydroxyvitamin D3 [Mass/volume] in Serum or Plasma VITAMIN D 25 HYDROXY Lab Routine Age-related osteoporosis without current pathological fracture Vitamin D deficiency Expected: 09/24/2022 (Approximate), Expires: 11/24/2022 [facility] Work Phone: Comment on above: Expected: 09/24/2022 (Approximate), Expires: 11/24/2022 Start: 09-24-2022 End: 11-24-2022 CBC panel - Blood by Automated count CBC Lab Routine Age-related osteoporosis without current pathological fracture Essential hypertension Expected: 09/24/2022 (Approximate), Expires: 11/24/2022 [facility] Work Phone: Comment on above: Expected: 09/24/2022 (Approximate), Expires: 11/24/2022 Start: 09-24-2022 End: 11-24-2022 Comprehensive metabolic 2000 panel - Serum or Plasma COMP METABOLIC PANEL Lab Routine Age-related osteoporosis without current pathological fracture Hypopotassemia Essential hypertension Elevated glucose Expected: 09/24/2022 (Approximate), Expires: 11/24/2022 [facility] Work Phone: Comment on above: Expected: 09/24/2022 (Approximate), Expires: 11/24/2022 Start: 09-24-2022 End: 11-24-2022 Hemoglobin A1c in Blood HGB A1C Lab Routine Elevated glucose Expected: 09/24/2022 (Approximate), Expires: 11/24/2022 [facility] Work Phone: Comment on above: Expected: 09/24/2022 (Approximate), Expires: 11/24/2022 Start: 09-24-2022 End: 11-24-2022 Lipid 1996 panel - Serum or Plasma LIPID PANEL BASIC Lab Routine Age-related osteoporosis without current pathological fracture Mixed hyperlipidemia Expected: 09/24/2022 (Approximate), Expires: 11/24/2022 [facility] Work Phone: Comment on above: Expected: 09/24/2022 (Approximate), Expires: 11/24/2022 Start: 06-26-2022 DEPRESSION ASSESSMENT [facility] Start: 06-06-2022 Iv infusion therapy/prophylaxis /dx 1st to 1 hr THER/PROPH/DIAG IV INF [facility] Work Phone: Start: 04-22-2022 Complete blood count Hemoglobin/Jairo tocrit [facility] Start: 04-22-2022 HEMOGLOBIN/HEMATOCRIT HEMOGLOBIN/HEM ATOCRIT [facility] Start: 04-10-2022 Hemoglobin A1c measurement HbA1C [facility] Start: 10-23-2021 Urine microalbumin profile [facility] Start: 06-26-2021 DEPRESSION ASSESSMENT DEPRESSION ASS ESSMENT [facility] Start: 06-17-2021 BP CONTROLLED (<130/80) BP CONTROLLE D (<130/80) [facility] Start: 03-17-2021 Hepatitis B surface antibody level LDL Cholesterol [facility] Start: 03-28-2020 Screening for osteoporosis Bone Density Screening [facility] Start: 04-06-2019 Creatinine measurement Serum Creatin ine [facility] Start: 04-06-2019 SERUM CREATININE SERUM CREATININE Cl [facility] Start: 1997 COLOGUARD (FIT-DNA) COLOGUARD (FIT-D NA) [facility] Start: [address] [facility]: 1997 FECAL OCCULT BLOOD FECAL OCCULT BLOO D [facility] Start: 1997 Screening for malign ant neoplasm of colon [facility] Start: 1997 [facility]: [facility] Diabetic foot examination Diabetic Foot Exam [facility] Start: 1962 Glaucoma screening Dilated Retinal E xam [facility] Start: 1962 Hepatitis B screening Urine Al bumin:Creatinine Ratio [facility] End: 04-11-2024 25-hydroxyvitamin D3 [Mass/volume] in Serum or Plasma VITAMIN D 25 HYDROXY Lab Routine Vitamin D deficiency Every 6 months for 3 Occurrences starting 04/12/2023 until 04/11/2024 [facility] Work Phone: Comment on above: Every 6 months for 3 Occurrences starting 04/12/2023 until 04/11/2024 End: 04-25-2025 BD DXA TRABECULAR BONE SCORE (TBS) BD DXA TRABECULAR BONE SCORE (TBS) Radiology Routine Asymptomatic postmenopausal state 1 Occurrences starting 03/26/2024 until 04/25/2025 [facility] Comment on above: 1 Occurrences starti ng 03/26/2024 until 04/25/2025 End: 04-11-2024 CBC panel - Blood by Automated count CBC Lab Routine Essential hypertension Encounter for long-term current use of medication Every 6 months for 3 Occurrences starting 04/12/2023 until 04/11/2024 [facility] Work Phone: Comment on above: Every 6 months for 3 Occurrences starting 04/12/2023 until 04/11/2024 End: 04-11-2024 Comprehensive metabolic 2000 panel - Serum or Plasma COMP METABOLIC PANEL Lab Routine Essential hypertension Encounter for long-term current use of medication IFG (impaired fasting glucose) Every 6 months for 3 Occurrences starting 04/12/2023 until 04/11/2024 [facility] Work Phone: Comment on above: Every 6 months for 3 Occurrences starting 04/12/2023 until 04/11/2024 End: 04-11-2024 Hemoglobin A1c in Blood HGB A1C Lab Routine IFG (impaired fasting glucose) Every 6 months for 3 Occurrences starting 04/12/2023 until 04/11/2024 [facility] Work Phone: Comment on above: Every 6 months for 3 Occurrences starting 04/12/2023 until 04/11/2024 End: 04-11-2024 Lipid 1996 panel - Serum or Plasma LIPID PANEL BASIC Lab Routine Mixed hyperlipidemia Every 6 months for 3 Occurrences starting 04/12/2023 until 04/11/2024 [facility] Work Phone: Comment on above: Every 6 months for 3 Occurrences starting 04/12/2023 until 04/11/2024 End: 04-11-2024 Magnesium [Mass/volume] in Serum or Plasma MAGNESIUM BLD Lab Routine Encounter for long-term current use of medication Every 6 months for 3 Occurrences starting 04/12/2023 until 04/11/2024 [facility] Work Phone: Comment on above: Every 6 months for 3 Occurrences starting 04/12/2023 until 04/11/2024 [facility] Immunizations Immunization Date Immunization Notes Care Provider Germán gordillo 03-26-2024 influenza, high dose seasonal, preservative-free Kathia Tavares MD Work Phone: [facility] 03-26-2024 influenza virus vacc ine, unspecified formulation Farida Garces MA [facility] 04-21-2023 respiratory syncytia l virus (RSV) vaccine, adjuvanted (AREXVY) Kathia Tavares MD Work Phone: [facility] 04-12-2023 influenza (HD-IIV4) vaccine, age 65+ yr, high dose, quadrivalent, PF (FLUZONE HIGH-DOSE) Kathia Tavares MD Work Phone: [facility] 03-18-2023 COVID-19 vaccine, ag e 12+ yr, season (PFIZER-BIONTECH) Kathia Tavares MD Work Phone: [facility] 04-12-2022 influenza, high-dose , quadrivalent vaccine (FLUZONE HIGH DOSE QUADRIVALENT) Kathia Tavares MD Work Phone: [facility] 03-11-2022 COVID-19 booster vaccine, age 12+ yr, bivalent (PFIZER-BIONTECH) Kathia Tavares MD Work Phone: [facility] Work Phone: 03-24-2021 influenza, high-dose , quadrivalent vaccine (FLUZONE HIGH DOSE QUADRIVALENT) Kathia Tavares MD Work Phone: [facility] 08-08-2020 COVID-19 original vaccine, age 12+ yr, monovalent (PFIZER-BIONTECH - PURPLE TOP) Kathia Tavares MD Work Phone: [facility] 07-18-2020 COVID-19 original vaccine, age 12+ yr, monovalent (PFIZER-BIONTECH - PURPLE TOP) Kathia Tavares MD Work Phone: [facility] 05-04-2020 pneumococcal polysaccharide vaccine, 23 valent Kathia Tavares MD Work Phone: [facility] Work Phone: 04-01-2020 influenza, high-dose , quadrivalent vaccine (FLUZONE HIGH DOSE QUADRIVALENT) Kathia Tavares MD Work Phone: [facility] 03-19-2020 zoster vaccine recombinant Kathia Tavares MD Work Phone: [facility] Work Phone: 11-30-2019 zoster vaccine recombinant Kathia Tavares MD Work Phone: [facility] Work Phone: 04-03-2019 influenza, high dose seasonal, preservative-free Kathia Tavares MD Work Phone: [facility] 04-16-2018 pneumococcal conjuga te vaccine, 13 valent Kathia Tavares MD Work Phone: [facility] Work Phone: 04-07-2018 influenza, high dose seasonal, preservative-free Kathia Tavares MD Work Phone: [facility] Work Phone: 04-10-2017 influenza, injectabl e, quadrivalent, contains preservative Kathia Tavares MD Work Phone: [facility] 04-19-2016 influenza, injectabl e, quadrivalent, contains preservative Kathia Tavares MD Work Phone: [facility] 04-22-2015 influenza, injectabl e, quadrivalent, contains preservative Kathia Tavares MD Work Phone: [facility] 04-15-2014 influenza, seasonal, injectable Kathia Tavares MD Work Phone: [facility] 04-01-2013 influenza virus vacc ine, unspecified formulation Kathia Tavares MD Work Phone: [facility] 04-01-2013 zoster vaccine, live Kathia turner MD Work Phone: [facility] 04-05-2012 influenza virus vacc ine, unspecified formulation Kathia Tavares MD Work Phone: [facility] 10-24-2011 tetanus toxoid, redu daya diphtheria toxoid, and acellular pertussis vaccine, adsorbed Kathia Tavares MD Work Phone: [facility] 03-29-2011 influenza virus vacc ine, unspecified formulation Kathia Tavares MD Work Phone: [facility] 04-25-2007 influenza virus vacc ine, unspecified formulation Kathia Tavares MD Work Phone: [facility] Work Phone: Payers Date Payer Category Payer Self-pay [id number] 2019 Private Health Insurance MMO MED ICARE SUPPLEMENT [id number] 2019 Unknown MMO MMO MEDICARE SUPPLEMENT [id number] 2019-Present [phone] [address] [place] [address] Indemnity [id number] 2017 Medicare [id number] 2017 Medicare [id number] 2015 Unknown [id number] Unknown [id number] Unknown [id number] Unknown [id number] Unknown [id number] Unknown [id number] Unknown [id number] Unknown [id number] Social History Date Type Detail Facility Start: 05-05-2021 End: 06-02-2023 Tobacco smoking status MAIS Unknown if ever smoked [facility] Start: 01-17-2014 None [facility] Start: 01-17-2014 Spouse/ Signif icant Other [facility] Start: 01-17-2014 Non-smoker [facility] Start: 1950 Sex Assigned At Female [facility] Start: 04-08-2015 End: 06-02-2023 Tobacco smoking status NHIS Never smoked tobacco [facility] Start: 04-08-2015 Tobacco use and exposure Smoke less tobacco non-user [facility] Start: 04-12-2022 End: 03-26-2024 Alcohol intake Current drinker of alcohol (finding) [facility] Start: 04-12-2023 End: 10-08-2023 History of Social function [facility] Work Phone: Start: 04-12-2023 End: 10-08-2023 Tobacco use panel [facility] Work Phone: Start: 05-27-2012 Adult Depression Screening Assessment 0 [facility] Work Phone: Start: 04-25-2021 Gender identity Identifies as female gender (finding) [facility] Start: 04-25-2021 Sexual orientation Choose not to dis close [facility] Has the [employer], or [employer] threatened to shut off services in your home in past 12Mo No [facility] Are you now , , , , never or living with a partner? [facility] How often to you hav e a drink containing alcohol? Never [facility] Do you feel stress - tense, restless, nervous, or anxious, or unable to sleep at night because your mind is troubled all the time - these days [OSQ] Not at all [facility] (I/We) worried kwame er (my/our) food would run out before (I/we) got money to buy more. Never true [facility] Start: 09-30-2024 Sex Female (finding) Rosa Elena moscoso [facility] Functional Status Date Assessment Result Facility 10-20-2014 Are you deaf, or do you have serious difficulty hearing No 10/20/2014 9:16 AM Yuly Felix LPN No [facility] 10-20-2014 Are you blind, or do you have serious difficulty seeing, even when wearing glasses No 10/20/2014 9:16 AM Yuly Felix LPN No [facility] 10-20-2014 Do you have serious difficulty walking or climbing stairs No 10/20/2014 9:16 AM Yuly Felix LPN No [facility] 10-20-2014 Do you have difficul ty dressing or bathing No 10/20/2014 9:16 AM Yuly Felix LPN No [facility] 10-20-2014 Because of a physica l, mental, or emotional condition, do you have difficulty doing errands alone such as visiting a physician's office or shopping No 10/20/2014 9:16 AM EDT Sukhjinder Yuly [employer] No [facility] Mental Status Date Assessment Result Facility 06-06-2024 Cognitive function Level Of Cons ciousness Awake;Alert;Appropriate;Fol lows Commands [facility] Work Phone: 06-06-2022 Cognitive function Awake;Alert;A ppropriate;Fol lows Commands [facility] Work Phone: 10-20-2014 Because of a physica l, mental, or emotional condition, do you have serious difficulty concentrating, remembering, or making decisions No 10/20/2014 9:16 AM EDT Yuly Slaughter LPN No [facility] Clinical Notes 10-31-2006 to 02-18-2025 Farida Garces MA - 02/17/2025 5:08 PM EDTPatient Kathia Boone MD - 10/01/2024 10:48 AM EDT Note Date & Type Note Facility 02-18-2025 Note HNO ID: [id number] Author: FARIDA GARCES MA Service: ? Author Type: Sales Performance Analyst Type: Progress Notes Filed: 02/18/2025 12:20 Note Text: POPULATION HEALTH NAVIGATION OUTREACH Action/FYI Patient returned My Chart stating she has an appointment. I replied to let her know this was about lab work and that the fasting lab orders have been placed by PCP Reason for Outreach Returned Call/MyChart Patient Contacted: Spoke to patient/parent/or legal guardian Patient identified by name and date of : Yes Returned call/MyChart actions taken: MyChart message sent Navigation Signature: Farida Garces MA February 18, 2025 12:16 PM [facility] 02-17-2025 Note HNO ID: [id number] Author: FARIDA GARCES MA Service: ? Author Type: Sales Performance Analyst Type: Progress Notes Filed: 02/18/2025 07:21 Note Text: POPULATION HEALTH NAVIGATION OUTREACH Action/FYI Contacted patient to schedule HCC care gaps and health maintenance. Appointment notes updated for upcoming appointment to include HCC gap closure. 1st attempt: Left message with my direct number 2nd attempt: My Chart message sent Topic Due (Y or N) Comments Annual Wellness Exam No PCP Follow up No Colorectal Cancer Screening No A1C Yes HTN/Controlling BP No HCC Yes Updated appointment notes Yes Reason for Outreach Care Gap/HCC or Scheduling Wellness Visits Care Gaps due: HBA1C Patient Contacted: Unable or unnecessary to reach patient: Left message MyChart message sent HCC related Updated appointment notes Navigation Signature: Farida Garces MA February 17, 2025 5:08 PM [facility] 02-17-2025 History of Present illness Narrative POPULATION HEALTH NAVIGATION OUTREACH Action/FYI Contacted patient to schedule HCC care gaps and health maintenance. 1st attempt: Left message with my direct number 2nd attempt: My Chart message sent Topic Due (Y or N) Comments Annual Wellness Exam No PCP Follow up No Colorectal Cancer Screening No A1C Yes HTN/Controlling BP No HCC Yes Updated appointment notes Yes Reason for Outreach Care Gap/HCC or Scheduling Wellness Visits Care Gaps due: HBA1C Patient Contacted: Unable or unnecessary to reach patient: Left message [email or web address] ([email or web address] message sent HCC related Updated appointment notes Navigation Signature: Farida Garces MA February 17, 2025 5:08 PM documented in this encounter [facility] 02-17-2025 Note Patient Outreach (NE TNAV) OMKAR MELLO ([id number]) 1950 F Date Time Provider Department 02/17/25 FARIDA GARCES During your visit today, we recorded the following information about you: Farida Garces MA 02/18/2025 7:21 AM Addendum POPULATION HEALTH NAVIGATION OUTREACH Action/FYI Contacted patient to schedule HCC care gaps and health maintenance. Appointment notes updated for upcoming appointment to include HCC gap closure. 1st attempt: Left message with my direct number 2nd attempt: My Chart message sent Topic Due (Y or N) Comments Annual Wellness Exam No PCP Follow up No Colorectal Cancer Screening No A1C Yes HTN/Controlling BP No HCC Yes Updated appointment notes Yes Reason for Outreach Care Gap/HCC or Scheduling Wellness Visits Care Gaps due: HBA1C Patient Contacted: Unable or unnecessary to reach patient: Left message [email or web address] ([email or web address] message sent HCC related Updated appointment notes Navigation Signature: Farida Garces MA February 17, 2025 5:08 PM Farida Garces MA 02/18/2025 12:20 PM Signed POPULATION HEALTH NAVIGATION OUTREACH Action/FYI Patient returned My Chart stating she has an appointment. I replied to let her know this was about lab work and that the fasting lab orders have been placed by PCP Reason for Outreach Returned Call/MyChart Patient Contacted: Spoke to patient/parent/or legal guardian Patient identified by name and date of : Yes Returned call/MyChart actions taken: [email or web address] ([email or web address])hart message sent Navigation Signature: Farida Garces MA February 18, 2025 12:16 PM Farida Garces MA 02/18/2025 12:21 PM Signed Addended by: FARIDA GARCES on: 02/18/2025 12:21 PM Modules accepted: Orders Allergies As of Date: 02/17/2025 Noted Allergy Reaction CIPROFLOXACIN 11/06/2010 2 - Rash Comments: Head to toe rash. Did tolerate Levaquin 01/2014 for pyelonephritis CODEINE 09/17/2007 5 - Intolerance Comments: nightmares OPIOIDS-MEPERIDINE AND RELATED 04/21/2004 10 - Anaphylaxis PENICILLINS 04/21/2004 4 - Hives SIMVASTATIN 10/20/2014 14 - Other: See Comments Comments: joint aches that resolved when stopped med TRIAMTERENE 06/10/2011 5 - Intolerance Comments: felt like passing out with this; tolerates HCTZ ZYRTEC (CETIRIZINE HCL) 01/12/2005 Comments: extreme headache Date Reviewed: 10/01/2024 Reviewed by: Annabelle Salinas LPN - Fully Assessed Reason for Visit: Population Health Navigation Outreach [3910] Cmt: Hutchins/Workbench/ACO Prescriptions as of 02/18/2025 - atenolol (TENORMIN) 25 mg tablet Take 1 tablet by mouth once daily. - metFORMIN ER (GLUCOPHAGE XR) 500 mg 24 hr tablet Take 1 tablet by mouth daily with breakfast. - pantoprazole DR (PROTONIX) 20 mg tablet Take 1 tablet by mouth daily before breakfast. Take on empty stomach, 1/2 hr before meal. - PARoxetine (PAXIL) 10 mg tablet Take 1 tablet by mouth once daily. - pravastatin (PRAVACHOL) 20 mg tablet Take 1 tablet by mouth once daily. - topiramate (TOPAMAX) 50 mg tablet Take 1 tablet by mouth daily at bedtime. - valsartan (DIOVAN) 80 mg tablet Take 1 tablet by mouth once daily. - Benzonatate (TESSALON) 200 mg capsule Take 1 capsule by mouth three times a day as needed. - oxyCODONE-acetaminophen (PERCOCET) 5-325 mg tablet Take 1 tablet by mouth two times a day as needed for pain for up to 7 days. - scopolamine (TRANSDERM-SCOP) patch 1.5 mg/72 hr (delivers 1 mg over 3 days) Apply first patch at least 4 hours prior to traveling. Apply every 3 days as needed during travel. - ZINC ACETATE ORAL Take by mouth. - CPAP CPAP supplies: Mask (per patient preference) optional chin strap/head gear (if indicated) , filters, tubing, humidifier and lifetime supplies. (G47.33) SHALOM (obstructive sleep apnea) - VITAMIN B COMPLEX (SUPER B COMPLEX ORAL) Take 1 tablet by mouth once daily. - Cholecalciferol, Vitamin D3, 5,000 unit cap Take 1 capsule by mouth once daily. - magnesium oxide (MAG-OXIDE) 400 mg tablet Take 1 tablet by mouth twice daily. - COMPOUNDED PRESCRIPTION nasal CPAP with a setting of 5cm with a heated humidity and medium comfort gel mask. Dx is obstructive sleep apnea. Problem List As Of Date 02/17/2025 Noted Resolved Malignant neoplasm of breast (female), unspecif*04/30/2004 04/24/2016 Migraine without aura [G43.009] 02/21/2005 Hyperlipemia [E78.5] 02/21/2005 Essential hypertension [I10] 08/23/2005 IRRITABLE COLON [K58.9] 08/23/2005 ESOPHAGEAL REFLUX [K21.9] 08/23/2005 Osteoporosis [M81.0] 08/24/2005 WOUND (NOT COMPLICATED) - OPEN ABD WALL, ANTER*10/05/2005 04/24/2016 Lump or mass in breast [N63.0] 11/02/2005 04/24/2016 HISTORY OF CANCER OF BREAST [Z85.3] 11/02/2005 Calculus of gallbladder without cholecystitis w*10/31/2006 04/24/2016 HYPOPOTASSEMIA [E87.6] 09/17/2007 SCAR (CICATRIX) HYPERTROPHIC [L91.0] 11/01/2007 Vitamin D Deficiency [E55.9] (more content not included)... [facility] 10-01-2024 Instructions Kathia Tavares MD - 10/01/2024 11:13 AM EDT - Refill medications at [facility]: Atenolol, Metformin, Pantoprazole, Paroxetine, Pravachol, Topamax, and Valsartan. - Continue taking Vitamin D 5000 IU daily. - Start taking a multivitamin that includes iron. - Drink 6-8 cups of water daily to stay hydrated. - Monitor blood pressure at home using your automatic blood pressure machine. - Maintain portion control and make healthy food choices. - Next appointment in March. documented in this encounter [facility] 10-01-2024 Note HNO ID: [id number] Author: KATHIA TAVARES MD Service: ? Author Type: Physician Type: Progress Notes Filed: 10/01/2024 11:21 Note Text: This note was created using [employer]. Subjective Patient presents with: 6 month f/up Omkar is a 73-year-old female with a history of HTN, DM, HLD, and SHALOM, presenting for a follow-up visit. Omkar reports a weight gain of 1 lb over the winter, but notes an overall weight loss from 229 lbs to 225 lbs since her last appointment. She attributes her weight gain to increased ice cream consumption, particularly at night, and mentions that she tries to practice portion control and make healthier food choices. She denies any issues with her current medications, which include atenolol, metformin, pantoprazole, paroxetine, Pravachol, Topamax, and valsartan. She reports difficulty maintaining adequate hydration, particularly on days when she is not exercising. She notes that she drinks approximately 16 oz of water on days when she exercises, which is usually at 0730, but struggles to drink enough water on other days. She mentions that she tries to stop drinking water by 1900 to avoid nocturia. She also reports that she has been taking vitamin D 5,000 IU daily more regularly since the winter, along with magnesium, zinc, and Super B-complex. She denies any muscle or joint aches. She uses a CPAP machine routinely and reports benefiting from its use. Recent lab results show a creatinine level of 1.48 mg/dL, glucose level of 115 mg/dL, total cholesterol of 119 mg/dL, triglycerides of 173 mg/dL, HDL of 53 mg/dL, LDL of 105 mg/dL, and vitamin D level of 33.6 ng/mL. Her A1c is 6.1%. She denies any symptoms of high blood pressure and has not been regularly checking her blood pressure at home. PAST MEDICAL HISTORY Diagnosis Date Colorectal polyp detected on colonoscopy 2014 Dr. Mayo Esophageal reflux Esophageal reflux 08/23/2005 Irritable bowel syndrome 08/23/2005 Malignant neoplasm of breast (female), unspecified site s/p left breast mastectomy w/ recontruction Migraine without aura, without mention of intractable migraine without mention of status migrainosus Obesity, unspecified 08/23/2005 SHALOM on CPAP 2007 Osteoporosis Reclast yearly (May). Bone density improved to osteopenia range in 2006. Last infusion 2016; BMD last checked 2014 at [facility] Osteoporosis, unspecified Bone density improved to osteopenia range in 2006 Other and unspecified hyperlipidemia Unspecified essential hypertension Current Outpatient Medications Medication Sig Benzonatate (TESSALON) 200 mg capsule Take 1 capsule by mouth three times a day as needed. scopolamine (TRANSDERM-SCOP) patch 1.5 mg/72 hr (delivers 1 mg over 3 days) Apply first patch at least 4 hours prior to traveling. Apply every 3 days as needed during travel. ZINC ACETATE ORAL Take by mouth. CPAP CPAP supplies: Mask (per patient preference) optional chin strap/head gear (if indicated) , filters, tubing, humidifier and lifetime supplies. (G47.33) SHALOM (obstructive sleep apnea) VITAMIN B COMPLEX (SUPER B COMPLEX ORAL) Take 1 tablet by mouth once daily. Cholecalciferol, Vitamin D3, 5,000 unit cap Take 1 capsule by mouth once daily. magnesium oxide (MAG-OXIDE) 400 mg tablet Take 1 tablet by mouth twice daily. COMPOUNDED PRESCRIPTION nasal CPAP with a setting of 5cm with a heated humidity and medium comfort gel mask. Dx is obstructive sleep apnea. atenolol (TENORMIN) 25 mg tablet Take 1 tablet by mouth once daily. metFORMIN ER (GLUCOPHAGE XR) 500 mg 24 hr tablet Take 1 tablet by mouth daily with breakfast. pantoprazole DR (PROTONIX) 20 mg tablet Take 1 tablet by mouth daily before breakfast. Take on empty stomach, 1/2 hr before meal. PARoxetine (PAXIL) 10 mg tablet Take 1 tablet by mouth once daily. pravastatin (PRAVACHOL) 20 mg tablet Take 1 tablet by mouth once daily. topiramate (TOPAMAX) 50 mg tablet Take 1 tablet by mouth daily at bedtime. valsartan (DIOVAN) 80 mg tablet Take 1 tablet by mouth once daily. oxyCODONE-acetaminophen (PERCOCET) 5-325 mg tablet Take 1 tablet by mouth two times a day as needed for pain for up to 7 days. No current facility-administered medications for this visit. Review of Systems Objective BP 128/70 Pulse (!) 51 Resp 14 Wt 102.2 kg (225 lb 5 oz) SpO2 94% BMI 38.37 kg/m? Last 5 Encounter Wt Readings: Date: Wt: 10/01/2024 102.2 kg (225 lb 5 oz) 03/26/2024 104.1 kg (229 lb 8 oz) 04/12/2023 98 kg (216 lb) 09/28/2022 109.3 kg (241 lb) 06/14/2022 106.1 kg (234 lb) No waist measurement recorded Estimated body mass index is 38.37 kg/m? as calculated from the following: Height as of 09/28/22: 163.2 cm (5' 4.25). Weight as of this encounter: 102.2 kg (225 lb 5 oz). Last 5 Encounter BP Readings: Date: BP: 10/01/2024 140/82 03/26/2024 150/82 04/12/2023 126/82 09/28/2022 130/78 06/14/2022 138/82 10/01/24 1033 10/01/24 (more content not included)... [facility] 10-01-2024 History of Present illness Narrative This note was created using NoteWriter. Subjective Patient presents with: 6 month f/up Omkar is a 73-year-old female with a history of HTN, DM, HLD, and SHALOM, presenting for a follow-up visit. Omkar reports a weight gain of 1 lb over the winter, but notes an overall weight loss from 229 lbs to 225 lbs since her last appointment. She attributes her weight gain to increased ice cream consumption, particularly at night, and mentions that she tries to practice portion control and make healthier food choices. She denies any issues with her current medications, which include atenolol, metformin, pantoprazole, paroxetine, Pravachol, Topamax, and valsartan. She reports difficulty maintaining adequate hydration, particularly on days when she is not exercising. She notes that she drinks approximately 16 oz of water on days when she exercises, which is usually at 0730, but struggles to drink enough water on other days. She mentions that she tries to stop drinking water by 1900 to avoid nocturia. She also reports that she has been taking vitamin D 5,000 IU daily more regularly since the winter, along with magnesium, zinc, and Super B-complex. She denies any muscle or joint aches. She uses a CPAP machine routinely and reports benefiting from its use. Recent lab results show a creatinine level of 1.48 mg/dL, glucose level of 115 mg/dL, total cholesterol of 119 mg/dL, triglycerides of 173 mg/dL, HDL of 53 mg/dL, LDL of 105 mg/dL, and vitamin D level of 33.6 ng/mL. Her A1c is 6.1%. She denies any symptoms of high blood pressure and has not been regularly checking her blood pressure at home. PAST MEDICAL HISTORY Diagnosis Date Colorectal polyp detected on colonoscopy 2014 Dr. Mayo Esophageal reflux Esophageal reflux 08/23/2005 Irritable bowel syndrome 08/23/2005 Malignant neoplasm of breast (female), unspecified site s/p left breast mastectomy w/ recontruction Migraine without aura, without mention of intractable migraine without mention of status migrainosus Obesity, unspecified 08/23/2005 SHALOM on CPAP 2007 Osteoporosis Reclast yearly (May). Bone density improved to osteopenia range in 2006. Last infusion 2016; BMD last checked 2014 at [facility] Osteoporosis, unspecified Bone density improved to osteopenia range in 2006 Other and unspecified hyperlipidemia Unspecified essential hypertension Current Outpatient Medications Medication Sig Benzonatate (TESSALON) 200 mg capsule Take 1 capsule by mouth three times a day as needed. scopolamine (TRANSDERM-SCOP) patch 1.5 mg/72 hr (delivers 1 mg over 3 days) Apply first patch at least 4 hours prior to traveling. Apply every 3 days as needed during travel. ZINC ACETATE ORAL Take by mouth. CPAP CPAP supplies: Mask (per patient preference) optional chin strap/head gear (if indicated) , filters, tubing, humidifier and lifetime supplies. (G47.33) SHALOM (obstructive sleep apnea) VITAMIN B COMPLEX (SUPER B COMPLEX ORAL) Take 1 tablet by mouth once daily. Cholecalciferol, Vitamin D3, 5,000 unit cap Take 1 capsule by mouth once daily. magnesium oxide (MAG-OXIDE) 400 mg tablet Take 1 tablet by mouth twice daily. COMPOUNDED PRESCRIPTION nasal CPAP with a setting of 5cm with a heated humidity and medium comfort gel mask. Dx is obstructive sleep apnea. atenolol (TENORMIN) 25 mg tablet Take 1 tablet by mouth once daily. metFORMIN ER (GLUCOPHAGE XR) 500 mg 24 hr tablet Take 1 tablet by mouth daily with breakfast. pantoprazole DR (PROTONIX) 20 mg tablet Take 1 tablet by mouth daily before breakfast. Take on empty stomach, 1/2 hr before meal. PARoxetine (PAXIL) 10 mg tablet Take 1 tablet by mouth once daily. pravastatin (PRAVACHOL) 20 mg tablet Take 1 tablet by mouth once daily. topiramate (TOPAMAX) 50 mg tablet Take 1 tablet by mouth daily at bedtime. valsartan (DIOVAN) 80 mg tablet Take 1 tablet by mouth once daily. oxyCODONE-acetaminophen (PERCOCET) 5-325 mg tablet Take 1 tablet by mouth two times a day as needed for pain for up to 7 days. No current facility-administered medications for this visit. Review of Systems Objective BP 128/70 Pulse (!) 51 Resp 14 Wt 102.2 kg (225 lb 5 oz) SpO2 94% BMI 38.37 kg/m Last 5 Encounter Wt Readings: Date: Wt: 10/01/2024 102.2 kg (225 lb 5 oz) 03/26/2024 104.1 kg (229 lb 8 oz) 04/12/2023 98 kg (216 lb) 09/28/2022 109.3 kg (241 lb) 06/14/2022 106.1 kg (234 lb) No waist measurement recorded Estimated body mass index is 38.37 kg/m as calculated from the following: Height as of 09/28/22: 163.2 cm (5' 4.25). Weight as of this encounter: 102.2 kg (225 lb 5 oz). Last 5 Encounter BP Readings: Date: BP: 10/01/2024 140/82 03/26/2024 150/82 04/12/2023 126/82 09/28/2022 130/78 06/14/2022 138/82 10/01/24 1033 10/01/24 1109 BP: 140/82 128/70 Pulse: (!) 51 Resp: 14 SpO2: 94% Weight: 102.2 kg (225 lb 5 oz) Physical Exam Constitutional: Appearance: Normal appearance. HENT: Head: Normocephalic. Eyes: Conjunctiva/sclera: Conjunctivae normal. Cardiovascular: Rate and Rhythm: Normal rate and regular rhythm. Heart sounds: Normal heart sounds. Pulmonary: Effort: Pulmonary effort is normal. Breath sounds: Normal breath sounds. Musculoskeletal: Right lower leg: No edema. Left lower leg: No edema. Skin: General: Skin is warm and dry. Neurological: General: No focal deficit present. Mental Status: She is alert and oriented to person, place, and time. Psychiatric: Attention and Perception: Attention and perception normal. Mood and Affect: Mood and affect normal. Speech: Speech normal. Behavior: Behavior normal. Thought Content: Thought content normal. Cognition and Memory: Cognition and memory normal. Judgment: Judgment normal. Assessment and Plan # Controlled type 2 diabetes mellitus without complication, without long-term current use of insulin (HCC) (E11.9) # IFG (impaired fasting glucose) (R73.01) - Hemoglobin A1c remains stable at 6.1%. - Fasting glucose level at 115 mg/dL. - Continue current management with metformin. - Maintain portion control and healthy food choices. # Migraine with aura and without status migrainosus, not intractable (G43.109) - Continue current management with Topamax. # Gastroesophageal reflux disease without esophagitis (K21.9) - Continue current management with pantoprazole. # Mixed hyperlipidemia (E78.2) - Total cholesterol decreased to 119 mg/dL, triglycerides at 173 mg/dL, HDL at 53 mg/dL, LDL at 105 mg/dL. - Continue current management with Pravachol. # SHALOM on CPAP (G47.33) - Patient is compliant with CPAP use and reports benefit. # Essential hypertension (I10) - Blood pressure measured at 120/70 mmHg. - Continue current management with atenolol and valsartan. # Hypomagnesemia (E83.42) - Magnesium levels within normal range. - Continue current supplementation. # Vitamin D deficiency (E55.9) - Vitamin D level at 33.6 ng/mL. - Continue supplementation with Vitamin D 5000 IU daily. # Stage 3b chronic kidney disease (HCC) (N18.32) - eGFR at 38 mL/min/1.73m . - Serum creatinine improved to 1.48 mg/dL from previous 1.6 mg/dL. - BUN improved to 21.6 mg/dL from previous 23 mg/dL. - Educated on the importance of adequate hydration; advised to consume 6-8 cups of water daily. - Ordered UACR to monitor for proteinuria. # Encounter for long-term current use of medication (Z79.899) - Refilled prescriptions for atenolol, metformin, pantoprazole, paroxetine, Pravachol, Topamax, and valsartan. - Medications sent to [facility] pharmacy. # Osteopenia of necks of both femurs -Continue weight bearing exercsise; BMD improving. Check in 2025 Kathia Tavares MD The patient consented to the use of [employer] software for draft documentation of the visit consistent with [facility] s Notice of Privacy Practices. documented in this encounter [facility] 06-11-2024 Note [facility] Pap Smear Specimen Adequacy June 11, 2024 6:06pm Comment . Satisfactory for evaluation. Endocervical and/or squamous metaplasticcells (endocervical component) are present. Comment on above: Satisfactory for ralph luation. Endocervical and/or squamous metaplasticcells (endocervical component) are present. 06-11-2024 Evaluation note Diagnosis Onset Date Resolution Encounter for routine gynecological examination noneactive June 11 8:20am [facility] Work Phone: 1(348) 593-420411-15-2024 Telephone encounter Note* Telephone Encounter - Kaushal Khan RN - 05/10/2024 4:42 PM EST Called and notified pt. Pt states she gets Reclast infusions every May. In looking at report, pt notified that since last exam, there has been improvement. [facility]11-15-2024 Miscellaneous Notes* Telephone Encounter - Kaushal Khan RN - 05/10/2024 4:42 PM EST Called and notified pt. Pt states she gets Reclast infusions every May. In looking at report, pt notified that since last exam, there has been improvement. * Telephone Encounter - Aysha Saxena APRN.CNS - 05/10/2024 4:23 PM EST Please let he know that her BMD showed osteopenia. * Telephone Encounter - Gudelia Chew LPN - 05/06/2024 3:33 PM EST Please review bone density from [facility]. View External Imaging - Bone Density [ID [id number]] [facility] Telephone encounter Note * Telephone Encounter - Aysha Saxena APRN.CNS - 05/10/2024 4:23 PM EST Please let he know that her BMD showed osteopenia. [facility]11-11-2024 Telephone encounter Note* Telephone Encounter - Gudelia Chew LPN - 05/06/2024 3:33 PM EST Please review bone density from [facility]. View External Imaging - Bone Density [ID [id number]] [facility]10-15-2024 Telephone encounter Note* Telephone Encounter - Anna Marie Verdugo LPN - 04/09/2024 5:05 PM EDT Patient requesting order be placed in medical records to be picked up on 04/10/24. Order taken by staff member to medical records. Anna Marie Verdugo LPN [facility]10-15-2024 Miscellaneous Notes* Telephone Encounter - Anna Marie Verdugo LPN - 04/09/2024 5:05 PM EDT Patient requesting order be placed in medical records to be picked up on 04/10/24. Order taken by staff member to medical records. Anna Marie Verdugo LPN * Telephone Encounter - Kathia Tavares MD - 04/08/2024 1:17 PM EDT Printed to fax FYI--The message regarding form was for nurses to take care of, not for patient. * Telephone Encounter - Adrianne Hawk RN - 04/06/2024 9:32 AM EDT Pt called and is notified of providers message. Pt voices understanding. She states she get the form from Dr Tavares and brings it to [facility]. [facility] does not have a form. If you would fill out our form that you printed, and call and let the Pt know when it is done. She said she would come up to providers office to pick it up. Adrianne Hawk, RN * Telephone Encounter - Kathia Tavares MD - 04/05/2024 6:36 PM EDT Tessalchad perljayde filled in other encounter by Aysha. Printed our order for Reclast, but if there is a form from [facility], I can sign that instead. * Telephone Encounter - Senthil Albert LPN - 03/28/2024 11:11 AM EDT Pt calling advising she was seen in office 03/26. Wanting to see if rx for Tessalon had been sent topharm. Advised her this was sent today. Pt also states she was to get an order for her Reclast thatis done at [facility]. She takes this order to the Hospital but did not get the order at her ov. Requesting to have the order mailed to her. Pt advises she is due for this in May. Address in [facility] confirmed with pt. Call pt only if problem. Senthil Albert LPN [facility] Telephone encounter Note * Telephone Encounter - Kathia Tavares MD - 04/08/2024 1:17 PM EDT Printed to fax FYI--The message regarding form was for nurses to take care of, not for patient. [facility]10-12-2024 Telephone encounter Note* Telephone Encounter - Adrianne Hawk RN - 04/06/2024 9:32 AM EDT Pt called and is notified of providers message. Pt voices understanding. She states she get the form from Dr Tavares and brings it to [facility]. [facility] does not have a form. If you would fill out our form that you printed, and call and let the Pt know when it is done. She said she would come up to providers office to pick it up. Adrianne Hawk, RN [facility]10-11-2024 Telephone encounter Note* Telephone Encounter - Kathia Tavares MD - 04/05/2024 6:36 PM EDT Tessalon perles filled in other encounter by Aysha. Printed our order for Reclast, but if there is a form from [facility], I can sign that instead. [facility]10-04-2024 Telephone encounter Note* Telephone Encounter - Aysha Saxena APRN.CNS - 03/29/2024 1:55 PM EDT ok [facility]10-04-2024 Miscellaneous Notes* Telephone Encounter - Aysha Saxena APRN.CNS - 03/29/2024 1:55 PM EDT ok * Telephone Encounter - Lilly Howell RN - 03/29/2024 11:37 AM EDT Patient requesting refill of Tessalon, as pended: The patient has been identified by name and date of : Yes Caregiver verified no other encounters exist for this prescription request: Yes Caregiver confirmed with patient/requestor that no other refills are due, in the near future, with this provider at this time: Yes The last office visit in the department: 03/26/2024 Does the patient have a future office visit with this provider/department: Yes 10/01/2024 Requested Prescriptions Pending Prescriptions Disp Refills Benzonatate (TESSALON) 200 mg capsule 50 capsule 3 Sig: Take 1 capsule by mouth three times a day as needed. Lilly Howell RN [facility] Telephone encounter Note * Telephone Encounter - Lilly Howell RN - 03/29/2024 11:37 AM EDT Patient requesting refill of Tessalon, as pended: The patient has been identified by name and date of : Yes Caregiver verified no other encounters exist for this prescription request: Yes Caregiver confirmed with patient/requestor that no other refills are due, in the near future, with this provider at this time: Yes The last office visit in the department: 03/26/2024 Does the patient have a future office visit with this provider/department: Yes 10/01/2024 Requested Prescriptions Pending Prescriptions Disp Refills Benzonatate (TESSALON) 200 mg capsule 50 capsule 3 Sig: Take 1 capsule by mouth three times a day as needed. Lilly Howell RN [facility]10-03-2024 Telephone encounter Note* Telephone Encounter - Senthil Albert LPN - 03/28/2024 11:11 AM EDT Pt calling advising she was seen in office 03/26. Wanting to see if rx for Tessalon had been sent topharm. Advised her this was sent today. Pt also states she was to get an order for her Reclast thatis done at [facility]. She takes this order to the Hospital but did not get the order at her ov. Requesting to have the order mailed to her. Pt advises she is due for this in May. Address in [facility] confirmed with pt. Call pt only if problem. Senthil Albert LPN [facility]10-01-2024 Instructions* Patient Instructions* Kathia Tavares MD - 03/26/2024 10:34 AM EDT -Flu shot will be administered today - Consider Prevnar 20 vaccine next year for pneumonia prevention - Schedule bone density scan to coincide with your mammogram on April 09 - Continue monitoring your blood pressure and discuss any concerns with your doctor - Consider adding Diovan for blood pressure control, especially if you experience orthostatic hypotension with your current medication - Continue monitoring your blood sugar levels and maintain a healthy diet and exercise routine - Your next appointment will be scheduled for around September 30-. [facility] History of Present illness Narrative* Kathia Tavares MD - 03/26/2024 10:11 AM EDT This note was created using [employer]. Subjective Omkar Mello is a 73 year old female. No chief complaint on file. SUBJECTIVE: Omkar Mello is a 73 year old year old lady here today for 6 month follow up appointment for review of medical conditions. The patient is a 73-year-old female with a history of HTN, neuropathy, and impaired fasting glucose, presenting for a routine 6-month follow-up visit. The patient reports discontinuing her antihypertensive medication, hydrochlorothiazide, over the summer due to experiencing orthostatic hypotension and lightheadedness, particularly during physical activity. She notes that since discontinuing the medication, she has felt better and has not experienced these symptoms. However, she acknowledges that her blood pressure was elevated at 150 mmHg systolic during a recent measurement. She also reportsthat her current medication, atenolol, causes her to feel winded and prevents her heart rate from exceeding 100 bpm during exercise. She denies any recent leg cramps. The patient has been managing her neuropathy with electrotherapy and laser light therapy since November, which she reports has significantly improved her symptoms. She notes that the thick sensation in the balls of her feet has resolved, and she now only experiences numbness and tingling in her toes. She also uses a roll-on treatment at night for additional relief. She denies any recent episodes of immobility or weakness. The patient is currently taking several medications, including Prevacol 20 mg, Topamax 50 mg at bedtime, Protonix 20 mg daily, metformin 500 mg once a day, and Paxil 10 mg once a day. She has discontinued her potassium supplement since stopping hydrochlorothiazide. She is also taking vitamin D 5,000 units, with a recent level of 37.7 ng/mL. She denies any issues with her current medication regimen. The patient has a history of impaired fasting glucose, with a recent HbA1c of 6.1%. She attributes a slight increase in her HbA1c to consuming sweet and sour sauce the night before her test. She has been monitoring her diet and reports a weight of 220 lbs, down from 240 lbs in September. She denies anyrecent changes in her diet or activity level. The patient has a history of hypercholesterolemia, with recent lab results showing a total cholesterol of 172 mg/dL, triglycerides of 188 mg/dL, HDL of 51 mg/dL, and LDL of 83 mg/dL. She also has a history of CKD, with recent lab results showing a BUN of 20 mg/dL, creatinine of 1.6 mg/dL, and a GFRof 34 mL/min/1.73 m . Her liver function tests were within normal limits, with an albumin level of 3.6 g/dL. Her electrolytes were also within normal limits, with a sodium level of 142 mmol/L and a potassium level of 3.8 mmol/L. Her magnesium level was 1.6 mg/dL. Her CBC was within normal limits, with a WBC count of 6.5 x 10^3/ L, hemoglobin of 12.6 g/dL, hematocrit of 38.8%, and platelet count of 262 x 10^3/ L. The patient is up to date on her vaccinations, including the flu, COVID-19, RSV, and shingles vaccines. She received the pneumococcal vaccine in 2019 and is due for the Prevnar 20 vaccine next year. She had a bone density scan in 2021 and is due for another one, which she plans to schedule along with her mammogram on April 09. She denies any feelings of depression or anxiety. She has an advance directive, which she has submitted multiple times but has not been scanned into her medical record. PAST MEDICAL HISTORY Diagnosis Date Colorectal polyp detected on colonoscopy 2014 Dr. Mayo Esophageal reflux Esophageal reflux 08/23/2005 Irritable bowel syndrome 08/23/2005 Malignant neoplasm of breast (female), unspecified site s/p left breast mastectomy w/ recontruction Migraine without aura, without mention of intractable migraine without mention of status migrainosus Obesity, unspecified 08/23/2005 SHALOM on CPAP 2007 Osteoporosis Reclast yearly (May). Bone density improved to osteopenia range in 2006. Last infusion 2016; BMD last checked 2014 at [facility] Osteoporosis, unspecified Bone density improved to osteopenia range in 2006 Other and unspecified hyperlipidemia Unspecified essential hypertension Current Outpatient Medications Medication Sig atenolol (TENORMIN) 25 mg tablet Take 1 tablet by mouth once daily. pravastatin (PRAVACHOL) 20 mg tablet Take 1 tablet by mouth once daily. topiramate (TOPAMAX) 50 mg tablet Take 1 tablet by mouth daily at bedtime. potassium chloride (K-TAB) 10 mEq tablet TAKE TWO TABLETS BY MOUTH 2 TIMES A DAY DIRECTED pantoprazole DR (PROTONIX) 20 mg tablet Take 1 tablet by mouth daily before breakfast. Take on empty stomach, 1/2 hr before meal. metFORMIN ER (GLUCOPHAGE XR) 500 mg 24 hr tablet Take 1 tablet by mouth daily with breakfast. PARoxetine (PAXIL) 10 mg tablet Take 1 tablet by mouth once daily. scopolamine (TRANSDERM-SCOP) patch 1.5 mg/72 hr (delivers 1 mg over 3 days) Apply first patch at least 4 hours prior to traveling. Apply every 3 days as needed during travel. ZINC ACETATE ORAL Take by mouth. Benzonatate (TESSALON) 200 mg capsule Take 1 capsule by mouth three times daily as needed. CPAP CPAP supplies: Mask (per patient preference) optional chin strap/head gear (if indicated) , filters, tubing, humidifier and lifetime supplies. (G47.33) SHALOM (obstructive sleep apnea) VITAMIN B COMPLEX (SUPER B COMPLEX ORAL) Take 1 tablet by mouth once daily. Cholecalciferol, Vitamin D3, 5,000 unit cap Take 1 capsule by mouth once daily. magnesium oxide (MAG-OXIDE) 400 mg tablet Take 1 tablet by mouth twice daily. COMPOUNDED PRESCRIPTION nasal CPAP with a setting of 5cm with a heated humidity and medium comfort gel mask. Dx is obstructive sleep apnea. nadolol (CORGARD) 20 mg tablet Take 1 tablet by mouth once daily. (Patient not taking: Reported on 03/26/2024) oxyCODONE-acetaminophen (PERCOCET) 5-325 mg tablet Take 1 tablet by mouth two times a day as neededfor pain for up to 7 days. hydroCHLOROthiazide 25 mg tablet Take 1 tablet by mouth once daily. (Patient not taking: Reported on 03/26/2024) zoledronic acid (RECLAST) 5 mg/100 mL pgbk PREMIX piggyback Inject 100 mL intravenously one time only for 1 dose. At [facility]. M81.0 (Due in May) No current facility-administered medications for this visit. Review of Systems Objective BP 150/82 Pulse (!) 52 Temp 36.8 C (98.3 F) Resp 16 Wt 104.1 kg (229 lb 8 oz) SpO2 97% BMI 39.09 kg/m Last 5 Encounter Wt Readings: Date: Wt: 03/26/2024 104.1 kg (229 lb 8 oz) 04/12/2023 98 kg (216 lb) 09/28/2022 109.3 kg (241 lb) 06/14/2022 106.1 kg (234 lb) 04/12/2022 106.1 kg (234 lb) No waist measurement recorded Estimated body mass index is 39.09 kg/m as calculated from the following: Height as of 09/28/22: 163.2 cm (5' 4.25). Weight as of this encounter: 104.1 kg (229 lb 8 oz). Last 5 Encounter BP Readings: Date: BP: 03/26/2024 150/82 04/12/2023 126/82 09/28/2022 130/78 06/14/2022 138/82 04/12/2022 132/82 Physical Exam Constitutional: Appearance: Normal appearance. She is obese. HENT: Head: Normocephalic. Eyes: Conjunctiva/sclera: Conjunctivae normal. Cardiovascular: Rate and Rhythm: Normal rate and regular rhythm. Heart sounds: Normal heart sounds. Pulmonary: Effort: Pulmonary effort is normal. Breath sounds: Normal breath sounds. Musculoskeletal: Right lower leg: No edema. Left lower leg: No edema. Skin: General: Skin is warm and dry. Neurological: General: No focal deficit present. Mental Status: She is alert and oriented to person, place, and time. Psychiatric: Attention and Perception: Attention and perception normal. Mood and Affect: Mood and affect normal. Speech: Speech normal. Behavior: Behavior normal. Thought Content: Thought content normal. Judgment: Judgment normal. Assessment and Plan # Controlled type 2 diabetes mellitus without complication, without long-term current use of insulin (HCC) (E11.9) - Hemoglobin A1c is 6.1%, indicating good glycemic control. - Continue metformin 500 mg once daily. - Encouraged regular exercise and dietary management to maintain glycemic control. # Essential hypertension (I10) - Blood pressure recorded at 150/80 mmHg. - Discontinued hydrochlorothiazide due to orthostatic hypotension. - Initiated Diovan 80 mg daily for blood pressure control and renal protection. - Atenolol to be continued; will reassess need for atenolol after stabilization on Diovan. # Mixed hyperlipidemia (E78.2) - Recent lipid panel: Total cholesterol 172 mg/dL, Triglycerides 188 mg/dL, HDL 51 mg/dL, LDL 83 mg/dL. - Continue Pravachol 20 mg daily. # Neuropathy of both feet (G57.93) - Symptoms improved with electrotherapy and laser treatment. - Continue current therapy. # Vitamin D deficiency (E55.9) - Recent vitamin D level 37.7 ng/mL. - Continue vitamin D supplementation at 5000 units daily. # Age-related osteoporosis without current pathological fracture (M81.0) - Last bone density scan in 2021. - Ordered bone density scan to be performed on 04/09/2024. # Migraine without aura and without status migrainosus, not intractable (G43.009) - Continue Topamax 50 mg at bedtime. # Encounter for immunization (Z23) - Administered influenza vaccine. - Pneumococcal vaccine up to date; next Prevnar 20 due in 2024. # Asymptomatic postmenopausal state (Z78.0) # Screening for depression (Z13.31) - Negative for symptoms of depression. # Encounter for screening examination for other mental health and behavioral disorders (Z13.39) - Negative for anxiety symptoms. # Class 2 obesity due to excess calories with body mass index (BMI) of 39.0 to 39.9 in adult, unspecified whether serious comorbidity present (E66.812) - Current weight 220 lbs, previously 216 lbs. - Encouraged dietary management and regular exercise. Kathia Tavares MD [facility] Instructions* Patient Instructions* Kathia Tavares MD - 10/09/2023 6:39 PM EDT Screening schedule The following prevention plan is recommended: Serum Creatinine due on 04/06/2019 BP Controlled (<130/80) due on 06/17/2021 Hemoglobin/Hematocrit due on 04/22/2022 Advance Directive Discussion due on 06/26/2023 Behavioral Health Screening Never done WHAT YOU CAN DO TO PREVENT FALLS Many falls can be prevented. By making some changes, you can lower your chances of falling. Four things YOU can do to prevent falls for you* and your caregiver 1. Begin a regular exercise program Exercise is one of the most important ways to lower your chances of falling. It makes you stronger and helps you feel better. Exercises that improve balance and coordination (like Rajendra Chi) are the most helpful. Lack of exercise leads to weakness and increases your chances of falling. Ask your doctor or health care provider about the best type of exercise program for you. 2. Have your health care provider review your medicines Have your doctor or pharmacist review all the medicines you take, even [id number] medicines. As you get older, the way medicines work in your body can change. Some medicines, or combinations of medicines, can make you sleepy or dizzy andcan cause you to fall. 3. Have your vision checked Have your eyes checked by an eye doctor at least once a year. You may be wearing the wrong glasses or have a condition like glaucoma or cataracts that limits your vision. Poor vision can increase your chances of falling. 4. Make your home safer About half of all falls happen at home. To make your home safer: Remove things you can trip over (like papers, books, clothes, and shoes) from stairs and places where you walk. Remove small throw rugs or use double-sided tape to keep the rugs from slipping. Keep items you use often in cabinets you can reach easily without using a step stool. Have grab bars put in next to your toilet and in the tub or shower. Use non-slip mats in the bathtub and on shower floors. Improve the lighting in your home. As you get older, you need brighter lights to see well. Hang light-weight curtains or shades to reduce glare. Have handrails and lights put in on all staircases. Wear shoes both inside and outside the house. Avoid going barefoot or wearing slippers. For more information, contact: Centers for Disease Control and Prevention www.cdc.gov/injury * This information may not apply if you have certain medical conditions. [facility] encounter[facility] History of Present illness Narrative* Kathia Tavares MD - 10/09/2023 6:10 PM EDT Images from the original note were not included. Omkar Mello is a 72 year old female here for a Medicare wellness visit. MyChart Zoom Video Visit was used for evaluation of this patient. I have communicated my name and active licensure. The patient's identity and physical location wereverified at the time of this visit. Either the patient or their legal sales representative electric service has been informed of the risks and benefits of -- and alternatives to -- treatment through a remote evaluation andconsents to proceed with the evaluation remotely. Medicare Health Risk Assessment General Health Very good Exercise: Minutes/Day 40 min Exercise: Days/Week 2 days Alcohol: Daily Use Never Alcohol: Drinks/Day Patient does not drink Alcohol: 6 or more drinks Never Feel off balance No Concerns: Teeth/Dentures No Concerns: Sexual function No Troubled by feelings None of the above Frequency: Eating healthy diet More than half the days ADLs requiring help None of the above Safety precautions in home/vehicle Yes Smoke, vape, chews tobacco No Difficulty hearing No Difficulty seeing No Current Providers Specialists: I have reviewed specialist-related care of the patient in the medical record. Outside specialists seen: Eye doctor--Dr. Jiménez ([facility]); Dentist--Dr. Omar GONZALEZ--Dr. Mayo, PAPER SALES REPRESENTATIVE--Dr. Nazario, Chiropractor--Dr. Lazar Medical/Family history review Reviewed and updated problem list, medical/surgical/family/social history, medications, and allergies. Opioid use review Opioid Medications (last 90 days) 10/09/2023 Opioid Medications oxycodone HCl/acetaminophen 1 tablet BID PRN ORAL -Discontinued No sig oxycodone HCl/acetaminophen 1 tablet BID PRN ORAL Details Outpatient prescription Medication marked as long-term Depression screening Depression Screening PHQ-2 Score 10/09/2023 0 Depression screening tool completed and reviewed. Based on score and interview, patient is not at risk for depression. Screening tool discussed with patient, and I recommended no further interventionat this time. Cognitive screening Virtual cognitive assessment performed Functional Observation Was the patient's Timed Up & Go test unsteady or ? 12 seconds? No Advance Care Planning Surrogate decision maker and/or advance care plan documented Will drop off for scanning. Measurements There were no vitals taken for this visit. Virtual visit Vision Screening: Follows with optometry/ophthalmology Assessment/Plan Medicare annual wellness visit, initial () - Counseled on healthy diet and regular exercise - Fall avoidance information provided - Personalized prevention plan provided Additional Concerns The following concerns were also discussed with the patient: Refills taken care of. Still on CPAP. Benefits from use. Uses at least 4 hours a night. Neuropathy in feet from balls of feet to toes--thinks since started nadolol and stayed even after switched to atenolol. Burning pain at night or feels like cold though foot temp is normal. Sometimes stinging pain in big toes. Sometimes feels like skin thick. rest of foot normal sensation. PHYSICAL EXAM There were no vitals taken for this visit. GENERAL: well appearing, alert, in no acute distress PULMONARY: breathing comfortably on room air , no coughing noted, and no wheezing noted Neuro Alert, oriented; affect bright and reactive Encounter Diagnosis ICD-10-CM 1. Medicare annual wellness visit, subsequent 2. SHALOM on CPAP G47.33 Uses nightly and benefits from use. Continue present management 3. Neuropathy of both feet G57.93 Balls of feet to tips of toes. Reviewed that beta blockers not associated with neuropathy. Will monitor for now. 4. Ocular migraine G43.109 nadolol (CORGARD) 20 mg tablet 5. Migraine with aura and without status migrainosus, not intractable G43.109 atenolol (TENORMIN) 25 mg tablet topiramate (TOPAMAX) 50 mg tablet Helps to have pain med on hand for just in case has a severe headahce 6. Essential hypertension I10 hydroCHLOROthiazide 25 mg tablet COMPREHENSIVE METABOLIC PANEL COMPLETE BLOOD COUNT Controlled. Continue same meds. 7. Mixed hyperlipidemia E78.2 pravastatin (PRAVACHOL) 20 mg tablet LIPID PANEL BASIC 8. Hypopotassemia E87.6 potassium chloride (K-TAB) 10 mEq tablet Continue management 9. Sciatica of right side M54.31 oxyCODONE-acetaminophen (PERCOCET) 5-325 mg tablet Helps to have pain med on hand for just in case has a severe bout 10. Gastroesophageal reflux disease without esophagitis K21.[address] (PROTONIX) 20 mg tablet Controlled with Protonix. Continue management 11. IFG (impaired fasting glucose) R73.01 HEMOGLOBIN A1C COMPREHENSIVE METABOLIC PANEL Update labs. Has orders but did not get labs done yet. Needs for next 6 month follow up 12. Vitamin D deficiency E55.9 VITAMIN D 25 HYDROXY 13. Hypomagnesemia E83.42 MAGNESIUM Patient here for Medicare Wellness exam and follow up. Above issues addressed with patient. Patient involved in shared decision making for management of medical issues. History and medications reviewed. Epic updated as needed Refills taken care of and meds adjusted as indicated after reviewed history, exam and labs. Health Maintenance reviewed. Updated record and/or ordered tests as recorded. Encouraged on efforts at healthy diet and regular exercise and adequate sleep. Needs to keep working on diet and exercise with lifestyle changes for effective weight loss as wellas prevention of DM, and control of BP and lipids. Lab orders to be mailed for March follow up. Stable on current meds. Kathia Tavares MD documented [facility] encounter[facility] Miscellaneous Notes* Telephone Encounter - Kathia Tavares MD - 08/20/2023 2:51 PM EST Below noted They had 10/18 then 10/15 Medicare Wellness appointments scheduled. Would offer to schedule Virtual Visits for the Medicare Wellness appointments and they can be back to back 20 minute slots instead. They are on [employer] and they want patients to do the Wellness Visits.Can do just the questions that are required for the Medicare Wellness visits, Addressing usual medical issues can wait till March. Can take care of refills as needed till March appointment. * Telephone Encounter - Lilly Howell RN - 08/18/2023 4:31 PM EST Patient calling for herself and for spouse. They both had 40 min wellness appointments scheduled with Dr. Tavares for 09/28. They received notice that their appts have been canceled due to provider will not be in office that day. No 40 min appts available with Dr. Tavares until 06/2024 at this time. Pt states she and her will only see Dr. Tavares. Pt states if ok with Dr. Tavares, she and her will not reschedule the September wellness appts for her and her and will plan to come to their 20 min appts that were scheduled awhile ago, for 03/26/24. Pt asking in the meantime if Dr. Tavares would renew their prescriptions as needed until seen in March? Please call Omkar at [phone] with reply. (*Duplicate note has been entered intospouse's record as well) Thank you. [facility] encounter[facility] History of Present illness Narrative* Kathia Tavares MD - 04/12/2023 9:57 AM EDT This note was created using [employer]. Subjective Omkar Mello is a 72 year old female. Patient presents with: 6 Month Exam SUBJECTIVE: Omkar Mello is a 72 year old year old lady here today for 6 month follow up appointment for review of medical conditions. Taking OTC Nervive for peripheral neuropathy in toes and feet. Sometimes feel really hot in toes; sometimes feel cold--feet stay cold to the touch. Started in beginning of the summer. Noted episode waking up in middle of the night and right arm and right leg --no sensation andcould not move them right away. No other symptoms concerning for stroke. [place] a little weakness thenext day but could walk/ Quit Nervive and resumed February at half dose plus roll on without issues. No recurrence of episode. PAST MEDICAL HISTORY Diagnosis Date Colorectal polyp detected on colonoscopy 2014 Dr. Mayo Esophageal reflux Esophageal reflux 08/23/2005 Irritable bowel syndrome 08/23/2005 Malignant neoplasm of breast (female), unspecified site s/p left breast mastectomy w/ recontruction Migraine without aura, without mention of intractable migraine without mention of status migrainosus Obesity, unspecified 08/23/2005 SHALOM on CPAP 2007 Osteoporosis Reclast yearly (May). Bone density improved to osteopenia range in 2006. Last infusion 2016; BMD last checked 2014 at [facility] Osteoporosis, unspecified Bone density improved to osteopenia range in 2006 Other and unspecified hyperlipidemia Unspecified essential hypertension Current Outpatient Medications Medication Sig scopolamine (TRANSDERM-SCOP) patch 1.5 mg/72 hr (delivers 1 mg over 3 days) Apply first patch at least 4 hours prior to traveling. Apply every 3 days as needed during travel. topiramate (TOPAMAX) 50 mg tablet Take 1 tablet by mouth daily at bedtime. pravastatin (PRAVACHOL) 20 mg tablet Take 1 tablet by mouth once daily. potassium chloride (K-TAB) 10 mEq tablet TAKE TWO TABLETS BY MOUTH 2 TIMES A DAY DIRECTED pantoprazole DR (PROTONIX) 20 mg tablet Take 1 tablet by mouth daily before breakfast. Take on empty stomach, 1/2 hr before meal. hydroCHLOROthiazide 25 mg tablet Take 1 tablet by mouth once daily. PARoxetine (PAXIL) 10 mg tablet Take 1 tablet by mouth once daily. oxyCODONE-acetaminophen (PERCOCET) 5-325 mg tablet Take 1 tablet by mouth twice daily as needed forpain for up to 7 days. atenolol (TENORMIN) 25 mg tablet Take 1 tablet by mouth once daily. metFORMIN ER (GLUCOPHAGE XR) 500 mg 24 hr tablet Take 1 tablet by mouth daily with breakfast. nadolol (CORGARD) 20 mg tablet Take 1 tablet by mouth once daily. zoledronic acid (RECLAST) 5 mg/100 mL pgbk PREMIX piggyback Inject 100 mL intravenously one time only for 1 dose. At [facility]. M81.0 (Due in May) ZINC ACETATE ORAL Take by mouth. Benzonatate (TESSALON) 200 mg capsule Take 1 capsule by mouth three times daily as needed. CPAP CPAP supplies: Mask (per patient preference) optional chin strap/head gear (if indicated) , filters, tubing, humidifier and lifetime supplies. (G47.33) SHALOM (obstructive sleep apnea) VITAMIN B COMPLEX (SUPER B COMPLEX ORAL) Take 1 tablet by mouth once daily. Cholecalciferol, Vitamin D3, 5,000 unit cap Take 1 capsule by mouth once daily. magnesium oxide (MAG-OXIDE) 400 mg tablet Take 1 tablet by mouth twice daily. COMPOUNDED PRESCRIPTION nasal CPAP with a setting of 5cm with a heated humidity and medium comfort gel mask. Dx is obstructive sleep apnea. No current facility-administered medications for this visit. Review of Systems Objective BP 126/82 (BP Site: Right Arm, BP Position: Sitting, BP Cuff Size: Large Adult) Pulse (!) 56 Temp 36.2 C (97.1 F) Resp 18 Wt 98 kg (216 lb) BMI 36.79 kg/m Physical Exam Constitutional: Appearance: Normal appearance. She is obese. HENT: Head: Normocephalic. Eyes: Conjunctiva/sclera: Conjunctivae normal. Cardiovascular: Rate and Rhythm: Normal rate and regular rhythm. Heart sounds: Normal heart sounds. Pulmonary: Effort: Pulmonary effort is normal. Breath sounds: Normal breath sounds. Musculoskeletal: Right lower leg: No edema. Left lower leg: No edema. Skin: General: Skin is warm and dry. Neurological: General: No focal deficit present. Mental Status: She is alert and oriented to person, place, and time. Psychiatric: Attention and Perception: Attention and perception normal. Mood and Affect: Mood and affect normal. Speech: Speech normal. Behavior: Behavior normal. Thought Content: Thought content normal. Cognition and Memory: Cognition and memory normal. Judgment: Judgment normal. Assessment and Plan Encounter Diagnosis ICD-10-CM 1. Essential hypertension I10 COMP METABOLIC PANEL CBC 2. Age-related osteoporosis without current pathological fracture M81.0 zoledronic acid (RECLAST) 5mg/100 mL pgbk PREMIX piggyback Reclast due May. Infusion done at [facility].Order filed to fax 3. Mixed hyperlipidemia E78.2 LIPID PANEL BASIC 4. Vitamin D deficiency E55.9 VITAMIN D 25 HYDROXY 5. Hypomagnesemia E83.42 6. IFG (impaired fasting glucose) R73.01 COMP METABOLIC PANEL HGB A1C 7. Stage 3 chronic kidney disease, unspecified whether stage 3a or 3b CKD (HCC) N18.30 8. History of left breast cancer Z85.3 9. Encounter for long-term current use of medication Z79.899 COMP METABOLIC PANEL CBC MAGNESIUM BLD 10. Encounter for immunization Z23 INFLUENZA VACCINE, PRSV FREE, AGE 65+ YR, HIGH DOSE, QUADRIVALENT (FLUZONE HIGH-DOSE) Above issues addressed with patient. Patient involved in shared decision making for management of medical issues. History and medications reviewed. Epic updated as needed Refills and/or prescriptions taken care of and meds adjusted as indicated after reviewed history, exam and labs. Health Maintenance reviewed. Updated record and/or ordered tests as recorded. Encouraged on efforts at healthy diet and regular exercise and adequate sleep. Needs to keep working on diet and exercise with lifestyle changes for effective weight loss as well as prevention of DM,and control of BP and lipids. I spent a total of 39 minutes on the date of the service which included preparing to see the patient, [id number] patient care, completing clinical documentation, performing a medically appropriate examination, counseling and educating the patient/family/caregiver, and ordering medications, tests,or procedures. Kathia Tavares MD documented [facility] this encounter[facility] Miscellaneous Notes* Telephone Encounter - Arabella Benson RN - 12/30/2022 9:21 AM EDT Patient calls to request a print prescription of scopolamine. Patient request 6 patches with 1 refill. Patient will be using [facility] and not sure on pharmacy yet. Pended per request. Last OV: 09/28/2022 Next OV: 04/12/2023 Will cotton picker in Medical Records if provider agrees. Please call patient at [phone]. Arabella Benson RN [facility] History of Present illness Narrative* Kathia Tavares MD - 09/28/2022 4:21 PM EDT This note was created using Rhapsoriter. Subjective Omkar Mello is a 71 year old female. HISTORY Omkar Mello is a 71 year old lady here for yearly exam and follow up appointment. Doing well overall. Needs to work on better diet to get weight down Also, increase activity. See Assessment and Plan for medical issues addressed, including labs and prescriptions. PAST MEDICAL HISTORY Diagnosis Date Colorectal polyp detected on colonoscopy 2014 Dr. Mayo Esophageal reflux Esophageal reflux 08/23/2005 Irritable bowel syndrome 08/23/2005 Malignant neoplasm of breast (female), unspecified site s/p left breast mastectomy w/ recontruction Migraine without aura, without mention of intractable migraine without mention of status migrainosus Obesity, unspecified 08/23/2005 SHALOM on CPAP 2007 Osteoporosis Reclast yearly (May). Bone density improved to osteopenia range in 2006. Last infusion 2016; BMD last checked 2014 at [facility] Osteoporosis, unspecified Bone density improved to osteopenia range in 2006 Other and unspecified hyperlipidemia Unspecified essential hypertension Current Outpatient Medications Medication Sig nadolol (CORGARD) 20 mg tablet Take 1 tablet by mouth once daily. zoledronic acid (RECLAST) 5 mg/100 mL pgbk PREMIX piggyback Inject 100 mL intravenously one time only for 1 dose. At [facility]. M81.0 (Due in May) topiramate (TOPAMAX) 50 mg tablet Take 1 tablet by mouth daily at bedtime. pravastatin (PRAVACHOL) 20 mg tablet Take 1 tablet by mouth once daily. potassium chloride (K-TAB) 10 mEq tablet TAKE TWO TABLETS BY MOUTH 2 TIMES A DAY DIRECTED pantoprazole DR (PROTONIX) 20 mg tablet Take 1 tablet by mouth daily before breakfast. Take on empty stomach, 1/2 hr before meal. hydroCHLOROthiazide (HYDRODIURIL, ESIDRIX) 25 mg tablet Take 1 tablet by mouth once daily. PARoxetine (PAXIL) 10 mg tablet Take 1 tablet by mouth once daily. ZINC ACETATE ORAL Take by mouth. oxyCODONE-acetaminophen (PERCOCET) 5-325 mg tablet Take 1 tablet by mouth twice daily as needed forPain for up to 7 days. Benzonatate (TESSALON) 200 mg capsule Take 1 capsule by mouth three times daily as needed. CPAP CPAP supplies: Mask (per patient preference) optional chin strap/head gear (if indicated) , filters, tubing, humidifier and lifetime supplies. (G47.33) SHALOM (obstructive sleep apnea) scopolamine (TRANSDERM-SCOP) 1.5 mg (1 mg over 3 days) Apply first patch at least 4 hours prior to traveling. Apply every 3 days as needed during travel. VITAMIN B COMPLEX (SUPER B COMPLEX ORAL) Take 1 tablet by mouth once daily. Cholecalciferol, Vitamin D3, 5,000 unit cap Take 1 capsule by mouth once daily. magnesium oxide (MAG-OXIDE) 400 mg tablet Take 1 tablet by mouth twice daily. COMPOUNDED PRESCRIPTION nasal CPAP with a setting of 5cm with a heated humidity and medium comfort gel mask. Dx is obstructive sleep apnea. No current facility-administered medications for this visit. ALLERGIES Allergen Reactions Ciprofloxacin Rash Head to toe rash. Did tolerate Levaquin 01/2014 for pyelonephritis Codeine Intolerance nightmares Opioids-Meperidine * Anaphylaxis Penicillins Hives Simvastatin Other: See Comments joint aches that resolved when stopped med Triamterene Intolerance felt like passing out with this; tolerates HCTZ Zyrtec [Cetirizine * extreme headache FAMILY HISTORY Problem Relation Age of Onset Diabetes Father Heart Father pacemaker Breast Cancer Mother dx at age 60 right breast affected, doing well Breast Cancer Maternal Aunt late 60's dx one breast affected, doing well Coronary Artery Disease Sister twin sister, had recent stent Colon Cancer Maternal Grandmother Colon Cancer Maternal Uncle Colon Cancer Maternal Aunt (maternal great aunt) Social History Tobacco Use Smoking status: Never Smokeless tobacco: Never Substance Use Topics Alcohol use: Yes Comment: socially rarely Drug use: No Review of Systems Objective BP 130/78 (BP Site: Left Arm, BP Position: Sitting, BP Cuff Size: Large Adult) Pulse 66 Resp 16 Ht 163.2 cm (5' 4.25) Wt 109.3 kg (241 lb) BMI 41.05 kg/m Last 5 Encounter Wt Readings: Date: Wt: 09/28/2022 109.3 kg (241 lb) 06/14/2022 106.1 kg (234 lb) 04/12/2022 106.1 kg (234 lb) 10/15/2021 103.9 kg (229 lb) 04/26/2021 106.7 kg (235 lb 3.2 oz) No waist measurement recorded Estimated body mass index is 41.05 kg/m as calculated from the following: Height as of this encounter: 163.2 cm (5' 4.25). Weight as of this encounter: 109.3 kg (241 lb). Last 5 Encounter BP Readings: Date: BP: 09/28/2022 130/78 06/14/2022 138/82 04/12/2022 132/82 10/15/2021 118/72 04/26/2021 128/82 Physical Exam Vitals reviewed. Constitutional: Appearance: Normal appearance. She is well-developed. She is obese. HENT: Head: Normocephalic and atraumatic. Right Ear: External ear normal. Left Ear: External ear normal. Nose: Nose normal. Eyes: Conjunctiva/sclera: Conjunctivae normal. Neck: Thyroid: No thyromegaly. Cardiovascular: Rate and Rhythm: Normal rate and regular rhythm. Pulses: Normal pulses. Heart sounds: Normal heart sounds. No murmur heard. No friction rub. No gallop. Pulmonary: Effort: Pulmonary effort is normal. Breath sounds: Normal breath sounds. Abdominal: General: Bowel sounds are normal. There is no distension. Palpations: Abdomen is soft. There is no mass. Tenderness: There is no abdominal tenderness. Musculoskeletal: General: No deformity. Normal range of motion. Lymphadenopathy: Cervical: No cervical adenopathy. Skin: General: Skin is warm and dry. Coloration: Skin is not jaundiced or pale. Findings: No rash. Neurological: General: No focal deficit present. Mental Status: She is alert and oriented to person, place, and time. Cranial Nerves: No cranial nerve deficit. Sensory: No sensory deficit. Motor: No abnormal muscle tone. Coordination: Coordination normal. Deep Tendon Reflexes: Reflexes normal. Psychiatric: Mood and Affect: Mood normal. Behavior: Behavior normal. Thought Content: Thought content normal. Judgment: Judgment normal. Labs reviewed, Assessment and Plan Encounter Diagnosis ICD-10-CM 1. Controlled type 2 diabetes mellitus without complication, without long-term current use of insulin (HCC) E11.9 HGB A1C COMP METABOLIC PANEL 2. Essential hypertension I10 hydroCHLOROthiazide 25 mg tablet atenolol (TENORMIN) 25 mg tablet COMP METABOLIC PANEL CBC 3. Ocular migraine G43.109 4. Migraine with aura and without status migrainosus, not intractable G43.109 topiramate (TOPAMAX) 50 mg tablet atenolol (TENORMIN) 25 mg tablet Helps to have pain med on hand for just in case has a severe headahce 5. Mixed hyperlipidemia E78.2 pravastatin (PRAVACHOL) 20 mg tablet LIPID PANEL BASIC 6. Hypopotassemia E87.6 potassium chloride (K-TAB) 10 mEq tablet Continue management 7. Gastroesophageal reflux disease without esophagitis K21.[address] (PROTONIX) 20 mg tablet Controlled with Protonix. Continue management 8. Essential hypertension I10 hydroCHLOROthiazide 25 mg tablet atenolol (TENORMIN) 25 mg tablet COMP METABOLIC PANEL CBC Controlled. Continue same meds. 9. Sciatica of right side M54.31 oxyCODONE-acetaminophen (PERCOCET) 5-325 mg tablet Helps to have pain med on hand for just in case has a severe bout 10. Vitamin D deficiency E55.9 VITAMIN D 25 HYDROXY 11. Class 3 severe obesity due to excess calories with body mass index (BMI) of 40.0 to 44.9 in adult, unspecified whether serious comorbidity present (HCC) E66.01 Z68.41 Above issues addressed with patient. Patient involved in shared decision making for management of medical issues. History and medications reviewed. Epic updated as needed Refills and/or prescriptions taken care of and meds adjusted as indicated after reviewed history, exam and labs. Health Maintenance reviewed. Updated record and/or ordered tests as recorded. Encouraged on efforts at healthy diet and regular exercise and adequate sleep. Kathia Tavares MD documented [facility] History of Present illness Narrative* Kathia Tavares MD - 06/14/2022 6:54 PM EST This note was created using Rhapsoriter. Subjective Omkar Mello is a 71 year old female. Patient presents with: Follow Up SUBJECTIVE: Omkar Mello is a 71 year old year old lady here today for BP follow up appointment for review of medical conditions. Noted that eye doctor concerned for changes consistent with high BP as cause of the changes. Will have follow up in November with Adin Shonfeld, OD. Retinal pictures taken. Looked like on follow up images that some of the bruises type lesions were resolving. Had no other symptoms of high BP. Going to [place] next Monday. Has BP cuff. Taking HCTZ daily now. Noted that has history of migraines. Just aura now. Ibuprofen helps. Lays down and tries to rest soheadache does not come. Noted that did not tolerate atenolol when was on chemo--too fatigued and not able to function. PAST MEDICAL HISTORY Diagnosis Date Colorectal polyp detected on colonoscopy 2014 Dr. Mayo Esophageal reflux Esophageal reflux 08/23/2005 Irritable bowel syndrome 08/23/2005 Malignant neoplasm of breast (female), unspecified site s/p left breast mastectomy w/ recontruction Migraine without aura, without mention of intractable migraine without mention of status migrainosus Obesity, unspecified 08/23/2005 SHALOM on CPAP 2007 Osteoporosis Reclast yearly (May). Bone density improved to osteopenia range in 2006. Last infusion 2016; BMD last checked 2014 at [facility] Osteoporosis, unspecified Bone density improved to osteopenia range in 2006 Other and unspecified hyperlipidemia Unspecified essential hypertension Current Outpatient Medications Medication Sig zoledronic acid (RECLAST) 5 mg/100 mL pgbk PREMIX piggyback Inject 100 mL intravenously one time only for 1 dose. At [facility]. M81.0 (Due in May) topiramate (TOPAMAX) 50 mg tablet Take 1 tablet by mouth daily at bedtime. pravastatin (PRAVACHOL) 20 mg tablet Take 1 tablet by mouth once daily. potassium chloride (K-TAB) 10 mEq tablet TAKE TWO TABLETS BY MOUTH 2 TIMES A DAY DIRECTED pantoprazole DR (PROTONIX) 20 mg tablet Take 1 tablet by mouth daily before breakfast. Take on empty stomach, 1/2 hr before meal. hydroCHLOROthiazide (HYDRODIURIL, ESIDRIX) 25 mg tablet Take 1 tablet by mouth once daily. PARoxetine (PAXIL) 10 mg tablet Take 1 tablet by mouth once daily. ZINC ACETATE ORAL Take by mouth. oxyCODONE-acetaminophen (PERCOCET) 5-325 mg tablet Take 1 tablet by mouth twice daily as needed forPain for up to 7 days. Benzonatate (TESSALON) 200 mg capsule Take 1 capsule by mouth three times daily as needed. CPAP CPAP supplies: Mask (per patient preference) optional chin strap/head gear (if indicated) , filters, tubing, humidifier and lifetime supplies. (G47.33) SHALOM (obstructive sleep apnea) scopolamine (TRANSDERM-SCOP) 1.5 mg (1 mg over 3 days) Apply first patch at least 4 hours prior to traveling. Apply every 3 days as needed during travel. (Patient not taking: No sig reported) VITAMIN B COMPLEX (SUPER B COMPLEX ORAL) Take 1 tablet by mouth once daily. Cholecalciferol, Vitamin D3, 5,000 unit cap Take 1 capsule by mouth once daily. magnesium oxide (MAG-OXIDE) 400 mg tablet Take 1 tablet by mouth twice daily. COMPOUNDED PRESCRIPTION nasal CPAP with a setting of 5cm with a heated humidity and medium comfort gel mask. Dx is obstructive sleep apnea. No current facility-administered medications for this visit. Review of Systems Objective BP 142/82 Pulse 87 Wt 106.1 kg (234 lb) SpO2 96% BMI 38.99 kg/m Last 5 Encounter Wt Readings: Date: Wt: 06/14/2022 106.1 kg (234 lb) 04/12/2022 106.1 kg (234 lb) 10/15/2021 103.9 kg (229 lb) 04/26/2021 106.7 kg (235 lb 3.2 oz) 10/09/2020 103 kg (227 lb) No waist measurement recorded Estimated body mass index is 38.99 kg/m as calculated from the following: Height as of 10/15/21: 165 cm (5' 4.96). Weight as of this encounter: 106.1 kg (234 lb). Last 5 Encounter BP Readings: Date: BP: 06/14/2022 142/82 04/12/2022 132/82 10/15/2021 118/72 04/26/2021 128/82 10/09/2020 136/78 Physical Exam Constitutional: Appearance: Normal appearance. HENT: Head: Normocephalic. Eyes: Conjunctiva/sclera: Conjunctivae normal. Cardiovascular: Rate and Rhythm: Normal rate and regular rhythm. Heart sounds: Normal heart sounds. Pulmonary: Effort: Pulmonary effort is normal. Breath sounds: Normal breath sounds. Skin: General: Skin is warm and dry. Neurological: General: No focal deficit present. Mental Status: She is alert and oriented to person, place, and time. Psychiatric: Mood and Affect: Mood normal. Behavior: Behavior normal. Thought Content: Thought content normal. Judgment: Judgment normal. Assessment and Plan ASSESSMENT/PLAN: 1. Essential hypertension - ICD9: 401.9, ICD10: I10 (primary diagnosis) - suboptimal control - Will aim for ideal control given changes on eye exam. - Continue current medication(s) - Recommended regular aerobic exercise. - Recommend home blood pressure monitoring, to bring results in on next visit - Cut down on HCTZ if BP gets too low; might stop if not needing. - Goal of BP <130/80 - NADOLOL 20 MG TABLET 2. Ocular migraine - ICD9: 346.80, ICD10: G43.109 Further evaluation and treatment as indicated. - NADOLOL 20 MG TABLET Kathia Tavares MD documented [facility] encounter[facility] Miscellaneous Notes* Telephone Encounter - Sheri Vega RN - 06/07/2022 10:38 AM EST Patient calls and states that she was just at the eye doctor. Patient states that in April eye doctor had noticed leakage in her eye which he had told her that it was probably due to high blood pressure. At her recent appointment doctor had told her that leakage has gotten better but there stillis leakage. Patient was told to give PCP a call so that PCP can do something about patient's blood pressure. Patient states that she has not felt any issues with her blood pressure. Patient states that she was at hospital getting calcium infusion and her blood pressure was 169/82. At end of May patient is leaving for [place]. Patient scheduled appointment on 06/14 with PCP to discuss blood pr essure. Please review and advise, Sheri Vega RN documented [facility] this encounter[facility]11-[facility]-2022 Miscellaneous Notes* Telephone Encounter - Maya Jiménez LPN - 05/13/2022 1:29 PM EST Que Florian callyed and identified pt with name and date of . Requested the last prescription with settings. He states it was a long time ago. Faxed copy of script from 06/10/08. Done. Maya Jiménez LPN documented in this encounter[facility]10[facility] History of Present illness Narrative* Kathia Tavares MD - 04/12/2022 6:52 PM EDT This note was created using Rhapsoriter. Subjective Omkar Mello is a 71 year old female. Patient presents with: F/U 6 months SUBJECTIVE: Omkar Mello is a 71 year old year old lady here today for 6 month follow up appointment for review of medical conditions. Tested + for COVID and by then symptoms were resolved from week prior. Stable. PAST MEDICAL HISTORY Diagnosis Date Colorectal polyp detected on colonoscopy 2014 Dr. Mayo Esophageal reflux Esophageal reflux 08/23/2005 Irritable bowel syndrome 08/23/2005 Malignant neoplasm of breast (female), unspecified site s/p left breast mastectomy w/ recontruction Migraine without aura, without mention of intractable migraine without mention of status migrainosus Obesity, unspecified 08/23/2005 SHALOM on CPAP 2007 Osteoporosis Reclast yearly (May). Bone density improved to osteopenia range in 2006. Last infusion 2016; BMD last checked 2014 at [facility] Osteoporosis, unspecified Bone density improved to osteopenia range in 2006 Other and unspecified hyperlipidemia Unspecified essential hypertension Current Outpatient Medications Medication Sig topiramate (TOPAMAX) 50 mg tablet Take 1 tablet by mouth daily at bedtime. pravastatin (PRAVACHOL) 20 mg tablet Take 1 tablet by mouth once daily. potassium chloride (K-TAB) 10 mEq tablet TAKE TWO TABLETS BY MOUTH 2 TIMES A DAY DIRECTED pantoprazole DR (PROTONIX) 20 mg tablet Take 1 tablet by mouth daily before breakfast. Take on empty stomach, 1/2 hr before meal. hydroCHLOROthiazide (HYDRODIURIL, ESIDRIX) 25 mg tablet Take 1 tablet by mouth once daily. PARoxetine (PAXIL) 10 mg tablet Take 1 tablet by mouth once daily. zoledronic acid (RECLAST) 5 mg/100 mL pgbk PREMIX piggyback Inject 100 mL intravenously one time only for 1 dose. At [facility]. M81.0 (Due in May) ZINC ACETATE ORAL Take by mouth. oxyCODONE-acetaminophen (PERCOCET) 5-325 mg tablet Take 1 tablet by mouth twice daily as needed forPain for up to 7 days. Benzonatate (TESSALON) 200 mg capsule Take 1 capsule by mouth three times daily as needed. CPAP CPAP supplies: Mask (per patient preference) optional chin strap/head gear (if indicated) , filters, tubing, humidifier and lifetime supplies. (G47.33) SHALOM (obstructive sleep apnea) scopolamine (TRANSDERM-SCOP) 1.5 mg (1 mg over 3 days) Apply first patch at least 4 hours prior to traveling. Apply every 3 days as needed during travel. (Patient not taking: No sig reported) VITAMIN B COMPLEX (SUPER B COMPLEX ORAL) Take 1 tablet by mouth once daily. Cholecalciferol, Vitamin D3, 5,000 unit cap Take 1 capsule by mouth once daily. magnesium oxide (MAG-OXIDE) 400 mg tablet Take 1 tablet by mouth twice daily. COMPOUNDED PRESCRIPTION nasal CPAP with a setting of 5cm with a heated humidity and medium comfort gel mask. Dx is obstructive sleep apnea. No current facility-administered medications for this visit. Review of Systems Objective BP 140/82 Pulse 83 Wt 106.1 kg (234 lb) SpO2 97% BMI 38.99 kg/m 04/12/22 1821 04/12/221916 BP: 140/82 132/82 Pulse: 83 SpO2: 97% Weight: 106.1 kg (234 lb) Physical Exam Constitutional: Appearance: Normal appearance. HENT: Head: Normocephalic. Eyes: Conjunctiva/sclera: Conjunctivae normal. Cardiovascular: Rate and Rhythm: Normal rate and regular rhythm. Heart sounds: Normal heart sounds. Pulmonary: Effort: Pulmonary effort is normal. Breath sounds: Normal breath sounds. Skin: General: Skin is warm and dry. Neurological: General: No focal deficit present. Mental Status: She is alert and oriented to person, place, and time. Psychiatric: Mood and Affect: Mood normal. Behavior: Behavior normal. Thought Content: Thought content normal. Judgment: Judgment normal. [facility] Imaging Services [address] [place] [address] Dexa Bone Density Study MR#: [id number] Acct: [id number] Name: OMKAR MELLO Rep #: [id number] : 1950 F 71 From: Kevin schuler MD PCP: Dr. Kathia Tavares MD Status: REG CLI Study: Dexa Bone Density Study Date of Exam: 04/05/22 Exam# [id number] Ordering Dr: Nallely Joshi NP OVEN UNLOADER -C STUDY: DUAL ENERGY X-RAY ABSORPTIOMETRY / DXA REASON FOR EXAM: Female, 71 years old. Bone density screening TECHNIQUE: Bone Mineral Density (BMD) measurements of lumbar spine and bilateral hips were obtained. COMPARISON: Comparison is made with prior study 03/31/2020. FINDINGS: Lumbar Spine (L1-L4): g/cm2 (0.813) / T-score (-1.5) / Z-score (0.4) Findings are suggestive of osteopenia with a low fracture risk. Left Femur Total: g/cm2 (0.838) / T-score (-0.9) / Z-score (0.6) Left Femoral Neck: g/cm2 (0.668) / T-score (-1.6) / Z-score (0.1) Right Femur Total: g/cm2 (0.848) / T-score (-0.8) / Z-score (0.7) Right Femoral Neck: g/cm2 (0.620) / T-score (-2.1) / Z-score (-0.3) The T-Scores on the most recent prior examination were: Lumbar Spine (L1-L4): There has been worsening of bone density since the previous examination. Left Femur Total: which represents an improvement of 9.6%. Right Femur Total: which represents an improvement of 5.8%. BD/Dexa Bone Density Study IMPRESSION: The patient is considered osteopenic as outlined below according to World [place] Organization (WHO) criteria with a moderate fracture risk. There has been improvement of bone density since the previous examination. Reference Information: The T-score is the number of standard deviations above or below the standard which is normal for young adults at their peak bone mineral density. The World Health Organization (WHO) interprets the T-scores as follows: Above -1 Normal bone density Between -1 and -2.5 Osteopenia Equal to / or below -2.5 Osteoporosis As a practical clinical guideline, osteopenia may be graded as follows: Mild -1 through -1.5 Moderate -1.6 through -2.0 Severe -2.1 through -2.4 The Z-score is the number of standard deviations above or below age-matched controls. A Z-score of less than -1.5 would be considered abnormal. References: 1. NIH Osteoporosis and Related Bone Diseases www osteo.org 2. International Society for Clinical Densitometry www iscd.org 3. National Osteoporosis Foundation www nof.org Electronically Signed: Kevin Guajardo MD at 10:25 EDT , Assessment and Plan ASSESSMENT/PLAN: 1. Age-related osteoporosis without current pathological fracture - ICD9: 733.01, ICD10: M81.0 (primary diagnosis) - continue tx with Reclast - Reviewed the need for Calcium and Vitamin D supplements and weight bearing exercise as tolerated - ZOLEDRONIC ACID 5 MG/100 ML IN MANNITOL 5 %-WATER INTRAVENOUS PIGGYBCK - COMP METABOLIC PANEL - CBC - LIPID PANEL BASIC - VITAMIN D 25 HYDROXY 2. Hypopotassemia - ICD9: 276.8, ICD10: E87.6 Continue present management. - COMP METABOLIC PANEL 3. Mixed hyperlipidemia - ICD9: 272.2, ICD10: E78.2 - to be determined upon return of lab results - Continue current medication. - LIPID PANEL BASIC 4. Essential hypertension - ICD9: 401.9, ICD10: I10 - good control - Continue current medication(s) - Recommended regular aerobic exercise. - Recommend home blood pressure monitoring, to bring results in on next visit - Goal of BP <130/80 - COMP METABOLIC PANEL - CBC 5. Vitamin D deficiency - ICD9: 268.9, ICD10: E55.9 Continue present management. - VITAMIN D 25 HYDROXY 6. Elevated glucose - ICD9: 790.29, ICD10: R73.09 Continue present management. - HGB A1C - COMP METABOLIC PANEL 7. Encounter for immunization - ICD9: V03.89, ICD10: Z23 - INFLUENZA SEASONAL QUADRIVALENT HIGH DOSE AGE 65+ Kathia Tavares MD documented in this encounter[facility]11[facility]-2017 History of Past illness Narrative* Problem Noted Date Diagnosed Date Resolved Date Class 2 severe obesity due t o excess calories with serious comorbidity and body mass index (BMI) of 37.0 to 37.9 in adult 05/11/2017 3 Calculus of gallbladder with out cholecystitis without obstruction 10/31/2006 04/24/2016 Overview: s/p cholecystectomy Lump or mass in breast 11/02/200504/24 WOUND (NOT COMPLICATED) - OP EN ABD WALL, ANTER 10/05/2005 04/24/2016 Malignant neoplasm of breast (female), unspecified site 04/30/2004 04/24/2016 documented as of this encounter (statuses as of 05/15/2023) [facility] History of Past illness Narrative* Problem Noted Date Diagnosed Date Resolved Date Class 2 severe obesity due t o excess calories with serious comorbidity and body mass index (BMI) of 37.0 to 37.9 in adult 05/11/2017 3 Calculus of gallbladder with out cholecystitis without obstruction 10/31/2006 04/24/2016 Overview: s/p cholecystectomy Lump or mass in breast 11/02/200504/24 WOUND (NOT COMPLICATED) - OP EN ABD WALL, ANTER 10/05/2005 04/24/2016 Malignant neoplasm of breast (female), unspecified site 04/30/2004 04/24/2016 documented as of this encounter (statuses as of 10/04/2023) [facility] History of Past illness Narrative* Problem Noted Date Diagnosed Date Resolved Date Class 2 severe obesity due t o excess calories with serious comorbidity and body mass index (BMI) of 37.0 to 37.9 in adult 05/11/2017 3 Calculus of gallbladder with out cholecystitis without obstruction 10/31/2006 04/24/2016 Overview: s/p cholecystectomy Lump or mass in breast 11/02/200504/24 WOUND (NOT COMPLICATED) - OP EN ABD WALL, ANTER 10/05/2005 04/24/2016 Malignant neoplasm of breast (female), unspecified site 04/30/2004 04/24/2016 documented as of this encounter (statuses as of 10/10/2023) [facility] History of Past illness Narrative* Problem Noted Date Resolved Date Calculus of gallbladder with out cholecystitis without obstruction 10/31/2006 04/24/2016 Overview: s/p cholecystectomy Lump or mass in breast 11/02/2005 6 WOUND (NOT COMPLICATED) - OPEN ABD WALL, ANTER 0 10/05/2005 04/24/2016 Malignant neoplasm of breast (female), unspecifi ed site 04/30/2004 04/24/2016 documented as of this encounter (statuses as of 05/13/2022) [facility] History of Past illness Narrative* Problem Noted Date Resolved Date Calculus of gallbladder with out cholecystitis without obstruction 10/31/2006 04/24/2016 Overview: s/p cholecystectomy Lump or mass in breast 11/02/2005 6 WOUND (NOT COMPLICATED) - OPEN ABD WALL, ANTER 0 10/05/2005 04/24/2016 Malignant neoplasm of breast (female), unspecifi ed site 04/30/2004 04/24/2016 documented as of this encounter (statuses as of 05/13/2022) [facility] History of Past illness Narrative* Problem Noted Date Resolved Date Calculus of gallbladder with out cholecystitis without obstruction 10/31/2006 04/24/2016 Overview: s/p cholecystectomy Lump or mass in breast 11/02/2005 6 WOUND (NOT COMPLICATED) - OPEN ABD WALL, ANTER 0 10/05/2005 04/24/2016 Malignant neoplasm of breast (female), unspecifi ed site 04/30/2004 04/24/2016 documented as of this encounter (statuses as of 06/14/2022) [facility] History of Past illness Narrative* Problem Noted Date Resolved Date Calculus of gallbladder with out cholecystitis without obstruction 10/31/2006 04/24/2016 Overview: s/p cholecystectomy Lump or mass in breast 11/02/2005 6 WOUND (NOT COMPLICATED) - OPEN ABD WALL, ANTER 0 10/05/2005 04/24/2016 Malignant neoplasm of breast (female), unspecifi ed site 04/30/2004 04/24/2016 documented as of this encounter (statuses as of 06/17/2022) [facility] History of Past illness Narrative* Problem Noted Date Resolved Date Calculus of gallbladder with out cholecystitis without obstruction 10/31/2006 04/24/2016 Overview: s/p cholecystectomy Lump or mass in breast 11/02/2005 6 WOUND (NOT COMPLICATED) - OPEN ABD WALL, ANTER 0 10/05/2005 04/24/2016 Malignant neoplasm of breast (female), unspecifi ed site 04/30/2004 04/24/2016 documented as of this encounter (statuses as of 10/31/2022) [facility] History of Past illness Narrative* Problem Noted Date Resolved Date Calculus of gallbladder with out cholecystitis without obstruction 10/31/2006 04/24/2016 Overview: s/p cholecystectomy Lump or mass in breast 11/02/2005 6 WOUND (NOT COMPLICATED) - OPEN ABD WALL, ANTER 0 10/05/2005 04/24/2016 Malignant neoplasm of breast (female), unspecifi ed site 04/30/2004 04/24/2016 documented as of this encounter (statuses as of 12/30/2022) [facility] noteNo assessment information availableWCleveland [facility] Work Phone: Evaluation note* Diagnosis Age-related osteoporosis without current pathological fracture- Primary Senile osteoporosis Hypopotassemia Mixed hyperlipidemia Essential hypertension Unspecified essential hypertension Vitamin D deficiency Unspecified vitamin D deficiency Elevated glucose Other abnormal glucose Encounter for immunization Need for other specified prophylactic vaccination against single bacterial disease [facility]* Diagnosis Essential hypertension- Primary Unspecified essential hypertension Ocular migraine Other forms of migraine, without mention of intractable migraine without mention of status migrainosus documented [facility] this encounter [facility] [place] [facility]* Diagnosis Onset Date Resolution Status Breast cancer, left 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 acute 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 Encounter for routine gynecological examination noneactive [facility] Work Phone: Evaluation note* Diagnosis Controlled type 2 diabetes mellitus without complication, without long-term current use of insulin (HCC)- Primary Essential hypertension Unspecified essential hypertension Ocular migraine Other forms of migraine, without mention of intractable migraine without mention of status migrainosus Migraine with aura and without status migrainosus, not intractable Migraine with aura, without mention of intractable migraine without mention of status migrainosus Mixed hyperlipidemia Hypopotassemia Gastroesophageal reflux disease without esophagitis Esophageal reflux Sciatica of right side Sciatica Vitamin D deficiency Unspecified vitamin D deficiency Class 3 severe obesity due to excess calories with body mass index (BMI) of 40.0 to 44.9 in adult, unspecified whether serious comorbidity present (HCC) [facility]* Diagnosis Essential hypertension- Primary Unspecified essential hypertension Age-related osteoporosis without current pathological fracture Senile osteoporosis Mixed hyperlipidemia Vitamin D deficiency Unspecified vitamin D deficiency Hypomagnesemia Disorders of magnesium metabolism IFG (impaired fasting glucose) Impaired fasting glucose Stage 3 chronic kidney disease, unspecified whether stage 3a or 3b CKD (HCC) History of left breast cancer Encounter for long-term current use of medication Encounter for immunization Need for other specified prophylactic vaccination against single bacterial disease [facility]* Diagnosis Medicare annual wellness visit, subsequent- Primary Routine general medical examination at a health care facility SHALOM on CPAP Obstructive sleep apnea (adult) (pediatric) Neuropathy of both feet Unspecified hereditary and idiopathic peripheral neuropathy Ocular migraine Other forms of migraine, without mention of intractable migraine without mention of status migrainosus Migraine with aura and without status migrainosus, not intractable Migraine with aura, without mention of intractable migraine without mention of status migrainosus Essential hypertension Unspecified essential hypertension Mixed hyperlipidemia Hypopotassemia Sciatica of right side Sciatica Gastroesophageal reflux disease without esophagitis Esophageal reflux IFG (impaired fasting glucose) Impaired fasting glucose Vitamin D deficiency Unspecified vitamin D deficiency Hypomagnesemia Disorders of magnesium metabolism Stage 3 chronic kidney disease, unspecified whether stage 3a or 3b CKD (HCC) [facility]* Diagnosis Controlled type 2 diabetes mellitus without complication, without long-term current use of insulin (HCC)- Primary Essential hypertension Unspecified essential hypertension Mixed hyperlipidemia Neuropathy of both feet Unspecified hereditary and idiopathic peripheral neuropathy Vitamin D deficiency Unspecified vitamin D deficiency Age-related osteoporosis without current pathological fracture Senile osteoporosis Migraine without aura and without status migrainosus, not intractable Migraine without aura, without mention of intractable migraine without mention of status migrainosus Encounter for immunization Need for other specified prophylactic vaccination against single bacterial disease Asymptomatic postmenopausal state Screening for depression Encounter for screening examination for other mental health and behavioral disorders Class 2 obesity due to excess calories with body mass index (BMI) of 39.0 to 39.9 in adult, unspecified whether serious comorbidity present Encounter for long-term current use of medication [facility] [place] [facility]* Diagnosis Age-related osteoporosis without current pathological fracture- Primary Senile osteoporosis [facility]* Diagnosis Controlled type 2 diabetes mellitus without complication, without long-term current use of insulin (HCC)- Primary Migraine with aura and without status migrainosus, not intractable Migraine with aura, without mention of intractable migraine without mention of status migrainosus Gastroesophageal reflux disease without esophagitis Esophageal reflux Mixed hyperlipidemia SHALOM on CPAP Obstructive sleep apnea (adult) (pediatric) Essential hypertension Unspecified essential hypertension Hypomagnesemia Disorders of magnesium metabolism Vitamin D deficiency Unspecified vitamin D deficiency Stage 3b chronic kidney disease (HCC) Encounter for long-term current use of medication IFG (impaired fasting glucose) Impaired fasting glucose Osteopenia of necks of both femurs [facility] (narrative)* Diagnostic Procedure Only (Routine) - New Request Specialty Diagnoses / Procedures Referred By Contac t Referred To Contact XR IMAGING Diagnoses Asymptomatic postmenopausal state Procedures DXA-AXIAL SKELETON DXA BONE DENSITY STUDY 1/> SITES AXIAL SKKathia Ibarra MD [address] [place] [address] [facility] [id number] Referral ID Status Reason Start Date Expiration Date Visits Requested Visits Authorized [id number] New Request Auto-Generat ed Referral 4 04/25/2025 1 [facility] (narrative)No reason for referral information availableWCleveland Clinic Hill[facility] Work Phone: Family History No Family History Records Found Relationship Condition Age at Onset Recorded Date/T regina Unknown Family History?Unknown Unknown January 17, 2014 5:06pm Family History?Unknown Unknown January 17, 2014 5:06pm Relationship Condition Age at Onset Recorded Date/T regina Unknown Family History?Unknown Unknown January 17, 2014 4:06pm Family History?Unknown Unknown January 17, 2014 4:06pm Advance Directives No Advanced Directives Records Found Advance Directive Response Recorded Date/ Time Advance Directives Yes May 26, 2016 10:20am Living Will Yes May 26 10:20am Power of Distribution Lead Yes May 26, 2016 10:20am Advance Directive Response Recorded Date/ Time Advance Directives Yes May 26, 2016 9:20am Living Will Yes May 26 9:20am Power of Distribution Lead Yes May 26, 2016 9:20am Documents on File Type Date Recorded Patient Peanut Roaster Expl anation Advance Directive(s) 04/11/2024 4:55 PM Advance Directive Response Recorded Date/ Time Living Will Yes May 26 10:20am Do you have a Healthcare Power of Distribution Lead? 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 Encounter for routine gynecological examination Chief Complaint SCREENING/ 2 ORDERIN G DOCTORS Chief Complaint Admit Date RECLAST June 06, 2024 8:50am Annual (PAPER SALES REPRESENTATIVE) June 11, 2024 8:20am Reason for Visit Admit Date Encounter for routine gynecological exam ination June 11, 2024 8:20am Summary Purpose Additional Source Comments Goals (unrecognized section and content) Goals may be documented in a n alternate sectionGoals may be documented in an alternate sectionGoals may be documented in an alternate sectionGoals may be documented in an alternate sectionGoals may be documented in an alternate sectionGoals may be documented in an alternate sectionGoals may be documented in an alternate sectionGoals may be documented in an alternate section Source Comments (unrecognize d section and content) In the event this informatio n is protected by the Federal Confidentiality of Alcohol and Drug Abuse Patient Records regulations: The Federal rules restrict any use of the information to criminally investigate or prosecute any alcohol or drug abuse patient.[facility] the event this information is protected by the Federal Confidentiality of Alcohol and Drug Abuse Patient Records regulations: The Federal rules restrict any use of the information to criminally investigate or prosecute any alcohol or drug abuse patient.[facility] the event this information is protected by the Federal Confidentiality of Alcohol and Drug Abuse Patient Records regulations: The Federal rules restrict any use of the information to criminally investigate or prosecute any alcohol or drug abuse patient.[facility]In the event this information is protected by the Federal Confidentiality of Alcohol and Drug Abuse Patient Records regulations: The Federal rules restrict any use of the information to criminally investigate or prosecute any alcohol or drug abuse patient.[facility] HospitalIn the event this information is protected by the Federal Confidentiality of Alcohol and Drug Abuse Patient Records regulations: The Federal rules restrict any use of the information to criminally investigate or prosecute any alcohol or drug abuse patient.[facility] HospitalIn the event this information is protected by the Federal Confidentiality of Alcohol and Drug Abuse Patient Records regulations: The Federal rules restrict any use of the information to criminally investigate or prosecute any alcohol or drug abuse patient.[facility]In the event this information is protected by the Federal Confidentiality of Alcohol and Drug Abuse Patient Records regulations: The Federal rules restrict any use of the information to criminally investigate or prosecute any alcohol or drug abuse patient.[facility] HospitalIn the event this information is protected by the Federal Confidentiality of Alcohol and Drug Abuse Patient Records regulations: The Federal rules restrict any use of the information to criminally investigate or prosecute any alcohol or drug abuse patient.[facility] HospitalIn the event this information is protected by the Federal Confidentiality of Alcohol and Drug Abuse Patient Records regulations: The Federal rules restrict any use of the information to criminally investigate or prosecute any alcohol or drug abuse patient.[facility] HospitalIn the event this information is protected by the Federal Confidentiality of Alcohol and Drug Abuse Patient Records regulations: The Federal rules restrict any use of the information to criminally investigate or prosecute any alcohol or drug abuse patient.[facility] HospitalIn the event this information is protected by the Federal Confidentiality of Alcohol and Drug Abuse Patient Records regulations: The Federal rules restrict any use of the information to criminally investigate or prosecute any alcohol or drug abuse patient.[facility] HospitalIn the event this information is protected by the Federal Confidentiality of Alcohol and Drug Abuse Patient Records regulations: The Federal rules restrict any use of the information to criminally investigate or prosecute any alcohol or drug abuse patient.[facility] HospitalIn the event this information is protected by the Federal Confidentiality of Alcohol and Drug Abuse Patient Records regulations: The Federal rules restrict any use of the information to criminally investigate or prosecute any alcohol or drug abuse patient.[facility] HospitalIn the event this information is protected by the Federal Confidentiality of Alcohol and Drug Abuse Patient Records regulations: The Federal rules restrict any use of the information to criminally investigate or prosecute any alcohol or drug abuse patient.[facility] HospitalIn the event this information is protected by the Federal Confidentiality of Alcohol and Drug Abuse Patient Records regulations: The Federal rules restrict any use of the information to criminally investigate or prosecute any alcohol or drug abuse patient.[facility] Reason for Visit (unrecogniz ed section and content) Reason Comments F/U 6 months Reason Comments Release Of Medical Records Reason Comments Follow Up Reason Comments Patient Update Reason Comments Yearly Exam Reason Onset Date Comments Refill Request 12/30/2022 Reason Comments 6 Month Exam Reason Comments Patient Update Patient Question Reason Comments Medicare Wellness Exam Follow Up Rx Refills Reason Comments F/U 6 months Reason Comments Medication Request Reason Comments Orders Reason Comments Orders Results Reason Comments 6 month f/up Reason Onset Date Comments Population Health Navigation Outreach 02/17/2025 Cynthia/Workbench/[facility] Care Teams (unrecognized sec tion and content) Taping Foreman Relationship Specialty Start Date End Date Kathia Tavares MD [address] [place] [address] PCP - General 05/22/02 Taping Foreman Relationship Specialty Start Date End Date Kathia Tavares MD [address] [place] [id number] PCP - General 05/22/02 Taping Foreman Relationship Specialty Start Date End Date Kathia Tavares MD [address] [place] [id number] PCP - General 05/22/02 Taping Foreman Relationship Specialty Start Date End Date Kathia Tavares MD [facility] [place] [address] PCP - General 05/22/02 Taping Foreman Relationship Specialty Start Date End Date Kathia Tavares MD [address] [place] [id number] PCP - General 05/22/02 Team Status: Active Member Role Status Dates Dr. Kathia Tavares MD Family Provider Active Dr. Kathia Tavares MD Primary Care Provider Active Team Status: Inactive Member Role Status Dates Dr. Kathia Tavares MD Primary Care Provider Active Dr. Carlee Nazario MD Attending Provider, Referr ing Provider Active Taping Foreman Relationship Specialty Start Date End Date Kathia Tavares MD [address] [place] [address] PCP - General 05/22/02 Taping Foreman Relationship Specialty Start Date End Date Kathia Tavares MD [address] [place] [address] PCP - General 05/22/02 Taping Foreman Relationship Specialty Start Date End Date Kathia Tavares MD [address] [place] [address] PCP - General 05/22/02 Team Status: Inactive Member Role Status Dates Dr. Kathia Tavares MD Primary Care Pr ovider, Attending Provider, Referring Provider Active Taping Foreman Relationship Specialty Start Date End Date Kathia Tavares MD [address] [place] [address] PCP - General 05/22/02 Taping Foreman Relationship Specialty Start Date End Date Kathia Tavares MD [address] [place] [address] PCP - General 05/22/02 Taping Foreman Relationship Specialty Start Date End Date Kathia Tavares MD [address] [place] [address] PCP - General 05/22/02 Team Status: Inactive Member Role Status Dates Dr. Kathia Tavares MD Primary Care Provider Active Start: June 06, 2024 End: June 06, 2024 Dr. Kathia Tavares MD Attending Provider Active Start: June 06, 2024 End: June 06, 2024 Dr. Kathia Tavares MD Referring Provider Active Start: June 06, 2024 End: June 06, 2024 Team Status: Inactive Member Role Status Dates Dr. Kathia Tavares MD Primary Care Provider Active Start: June 11, 2024 End: June 11, 2024 Dr. Kathia Tavares MD Referring Provider Active Start: June 11, 2024 End: June 11, 2024 Dr. Nacny Franklin DO Attending Provider Activ e Start: June 11, 2024 End: June 11, 2024 Team Status: Inactive Member Role Status Dates Dr. Kathia Tavares MD Primary Care Provider Active Start: June 11, 2024 End: June 11, 2024 Dr. Nancy Franklin DO Attending Provider Activ e Start: June 11, 2024 End: June 11, 2024 Dr. Nancy Franklin DO Referring Provider Activ e Start: June 11, 2024 End: June 11, 2024 Team Status: Inactive Member Role Status Dates Dr. Kathia Tavares MD Primary Care Provider Active Start: September 27, 2024 End: September 27, 2024 Dr. Kathia Tavares MD Attending Provider Active Start: September 27, 2024 End: September 27, 2024 Dr. Kathia Tavares MD Referring Provider Active Start: September 27, 2024 End: September 27, 2024 Taping Foreman Relationship Specialty Start Date End Date Kathia Tavares MD [address] [place], [place] [id number] PCP - General 05/22/02 Aysha Saxena, SALES STRATEGY MANAGER.AIR QUALITY CHEMIST [address] [place], [place] [id number] [facility] Internal Medicine 06/03/24 Danni Escobar, SALES STRATEGY MANAGER.FIELD MARKETING MANAGER [address] [place], [place] [id number] [facility] Internal Medicine 09/17/24 Taping Foreman Relationship Specialty Start Date End Date Kathia Tavares MD [address] [place], [place] [id number] PCP - General 05/22/02 Danni Escobar SALES STRATEGY MANAGER.FIELD MARKETING MANAGER [address] [place], [place] [id number] [facility] Internal Medicine 09/17/24 Aysha Saxena, SALES STRATEGY MANAGER.AIR QUALITY CHEMIST [address] [place], [place] [id number] [facility] Internal Medicine 11/13/24 INFORMATION SOURCE (unrecogn ized section and content) DATE CREATED AUTHOR 04/09/2025 [facility] DATE CREATED AUTHOR AUTHOR'S ORGANIZ ATION 04/23/2025 [facility] FOR RECORDS PERTAINING TO PATIENTS WHO ARE OR HAVE BEEN ENROLLED IN A CHEMICAL DEPENDENCY/SUBSTANCEABUSE PROGRAM, SOME INFORMATION MAY BE OMITTED. This clinical summary was aggregated from multiple sources. Caution should be exercised in using it in the provision of clinical care. This summary normalizes information from multiple sources, and as a consequence, information in this document may materially change the coding, format and clinical context of patient data. In addition, data may be omitted in some cases. CLINICAL DECISIONS SHOULD BE BASED ON THE PRIMARY CLINICAL RECORDS. [employer] provides no warranty or guarantee of the accuracy or completeness of information in this document.
[2025-05-10 09:07] LABS: Anion Gap 12 (5-15); BUN 23 mg/dL (4-19); BUN/Creat Ratio 12.4 RATIO (10-20); Calcium,Total 9.2 mg/dL (7.6-11.0); Carbon Dioxide 17.8 mmol/L (21.0-32.0); Chloride 113 mmol/L (98-108); Glucose 116 mg/dL (70-99); Potassium 4.4 mmol/L (3.3-5.1)
== END | disposition home or self-care (01) ==
LOC: LAB 07:59
PROVIDERS: PCP Internal Medicine; Referring Provider Internal Medicine; Visit Provider Internal Medicine
DX: E11.22 Type 2 diabetes mellitus with diabetic chronic kidney disease (principal); N18.32 Chronic kidney disease, stage 3b
CPT/HCPCS: 36415; 80048

== ENCOUNTER → 2025-05-26 | Outpatient (CLI) | payer MEDICARE, OTHER, SELFPAY ==
[2025-05-29 15:08] LABS: HPV APTIMA, High Risk Negative (Negative)
== END | disposition home or self-care (01) ==
LOC: LABSPEC 16:28
PROVIDERS: PCP Internal Medicine; Visit Provider Obstetrics & Gynecology
DX: Z12.4 Encounter for screening for malignant neoplasm of cervix (principal); Z91.89 Other specified personal risk factors, not elsewhere classified
CPT/HCPCS: 87624; 88175; G0145